=== PATIENT | female | born 1950 | race Caucasian/White ===

== ENCOUNTER 2019-09-01 08:15 | Outpatient (CLI) | payer MEDICARE, SELFPAY ==
[2019-09-01 08:58] LABS: Add Urine Microscopic? NO; Appearance Urine Clear (Clear); Bilirubin Urine Negative (Negative); Blood Urine Negative (Negative); Color Urine Yellow (Yellow); Glucose Urine UA Negative (Negative); Ketones Urine Negative (Negative); Leukocyte Esterase Ur Negative LEU/UL (Negative); Nitrate Urine Negative (Negative); Protein Urine Negative (Negative); Specific Grav Ur 1.015 (1.010-1.020); Urobilinogen Urine 0.2 mg/dL (0.2-1.0)
[2019-09-01 09:20] LABS: Basophils Absolute Auto 0.07 K/mm3 (0.00-0.10); Basophils Percent Auto 0.8 % (0.0-1.0); Eosinophils Absolute Auto 0.15 K/mm3 (0.02-0.50); Eosinophils Percent Auto 1.6 % (1.0-6.0); Hematocrit 40.4 % (35.0-42.0); Hemoglobin 13.2 g/dL (11.7-13.8); Immature Granulocyte Absolute 0.02 K/mm3 (0.00-0.00); Immature Granulocyte Percent A 0.2 % (0.0-0.0); Lymphocytes Absolute Auto 2.92 K/mm3 (1.10-4.50); Lymphocytes Percent Auto 31.3 % (18.0-42.0); Mean Corpuscular HGB Conc 32.7 g/dL (32.0-36.0); Mean Corpuscular Volume 91.8 fL (78.0-102.0); Mean Platelet Volume 12.3 fl (9.2-11.8); Monocytes Absolute Auto 0.73 K/mm3 (0.10-0.90); Monocytes Percent Auto 7.8 % (2.0-11.0); Neutrophils Absolute Auto 5.4 K/mm3 (1.7-7.2); Neutrophils Percent Auto 58.3 % (50.0-70.0); Platelet Count Result 244 K/mm3 (150-420); Red Cell Distribution Width 14.2 % (11.6-14.4); White Blood Count 9.3 K/mm3 (4.8-10.8)
[2019-09-01 09:47] LABS: Alanine Aminotransferase 31 U/L (14-59); Albumin Level 3.6 g/dL (3.4-5.0); Alkaline Phosphatase 71 U/L (46-116); Anion Gap 14.1 mmol/L (7-16); Aspartate Amino Transferase 22 U/L (15-37); Bilirubin,Total 0.4 mg/dL (0.00-1.00); Blood Urea Nitrogen 18 mg/dL (7-18); Calcium 10.1 mg/dL (8.5-10.1); Carbon Dioxide 26 mmol/L (21-32); Chloride 101 mmol/L (98-108); Cholesterol 218 mg/dL (0-200); Estimated Glomerular Filt Rate 38; Glucose 103 mg/dL (70-99); HDL Direct 55 mg/dL (40-60); LDL Cholesterol Calculated 138 mg/dL (<130); Osmolality Calculated 285 mOsm/kg (285-295); Potassium 4.1 mmol/L (3.5-5.1); Sodium 137 mmol/L (136-145); Thyroid Stimulating Hormone 4.77 uIU/mL (0.36-3.74); Total Protein 7.7 g/dL (6.4-8.2); Triglycerides 125 mg/dL (0-150)
== END 2019-09-01 08:16 | disposition home or self-care (01) ==
PROVIDERS: PCP Internal Medicine; Visit Provider Internal Medicine
DX: E06.3 Autoimmune thyroiditis (principal); I10 Essential (primary) hypertension; E78.2 Mixed hyperlipidemia
CPT/HCPCS: 36415; 80053; 80061; 81003; 84443; 85025

== ENCOUNTER 2019-09-03 23:14 | Emergency (ER) | payer MEDICARE, SELFPAY ==
[2019-09-03 23:20] VITALS: BP 168/94; PULSE 92; RESP 20; TEMP 36.8; O2SAT 97
--- NOTE | 2019-09-03 23:25 | ECG_ITS ---
Measurements Intervals [place] Rate: 92 P: 35 ID: 220 QRS: -34 QRSD: 95 T: 51 QT: 367 QTc: 454 Interpretive Statements SINUS RHYTHM WITH FIRST DEGREE AV BLOCK LEFT AXIS DEVIATION VOLTAGE CRITERIA FOR LVH POOR R WAVE PROGRESSION, ANTERIOR LEADS NONSPECIFIC ST & T-WAVE ABNORMALITY- HIGH LATERAL LEADS ABNORMAL ECG Electronically Signed On 09-05-2019 7:17:14 CDT by Radu Melgar D.O.
[2019-09-03 23:41] VITALS: O2SAT 97
--- NOTE | 2019-09-03 23:42 | ED.CHESTPAIN ---
HPI - Chest Pain General Chief Complaint: Chest Pain Stated Complaint: Hypertension Source: patient Mode of arrival: ambulatory Limitations: no limitations History of Present Illness HPI narrative: this is a 69-year-old female that presents to the emergency department with some elevated blood pressure the patient appears slightly anxious has been told by her primary care physician to monitor her blood pressure and she has been doing so, and was concerned because her blood pressure was 168/94. Initially she complained of chest pressure but during my examination the patient denied any chest pain or chest pressure or chest tightness with no shortness of breath no nausea vomiting no abdominal pain no fever or chills. complaint: other ( Currently no chest pain) Prior episodes: No Relieving factors: nothing Exacerbating factors: nothing Related Data Home Medications Medication Instructions Recorded Confirmed aspirin [Aspirin Low Dose] 81 mg PO DAILY 09/03/19 09/03/19 famotidine 20 mg PO DAILY 09/03/19 09/03/19 levothyroxine 75 mcg PO DAILY 09/03/19 09/03/19 lisinopril 5 mg PO DAILY 09/03/19 09/03/19 montelukast 10 mg PO DAILY 09/03/19 09/03/19 pravastatin 20 mg PO DAILY 09/03/19 09/03/19 verapamil 240 mg PO DAILY 09/03/19 09/03/19 Allergies Allergy/AdvReac Type Severity Reaction Status Date / Time No Known Allergies Allergy Unverified 02/27/15 10:22 Review of Systems Review of Systems: All systems reviewed & are unremarkable except as noted in HPI and below PMFSH Past Medical History Medical History HLD (hyperlipidemia) HTN (hypertension) Hypothyroidism (acquired) Family History Family History Father Hypertension Family history of heart disease in male family member before age 55 Sibling Family history of Parkinson's disease Mother Family history of diabetes mellitus in first degree relative Social History Social History Smoking status: Never smoker Alcohol intake: never Exam Const: General: no acute distress and alert Orientation/consciousness: patient oriented x3 HENMT: Head: normal to inspection Eyes: Conjunctivae: conjunctivae normal Pupils: Equal, round and reactive pupils present EOM: EOMs intact bilaterally Neck: Neck: normal visual inspection, no lymphadenopathy and no meningeal signs Chest: Chest palpation & inspection: normal inspection of the chest Resp: Effort & Inspection: normal respiratory effort Auscultation: clear to auscultation bilaterally Cardio: Rate: regular rate Rhythm: regular rhythm GI: Auscultation: normal bowel sounds : General: Yes no CVA tenderness Neuro: General: patient oriented x3, moves all extremities and no meningeal signs Extrem: General: normal to inspection and no pedal edema Psych: Mental Status: mental status grossly normal Thought content: Yes Normal thought content present Course Course Emergency Course: during reassessment the patient's blood pressure was 150/85 assured her that that blood pressure was mildly elevated and was going to give her a 10 mg dose of lisinopril while here in the emergency department, also noticed that her primary care physician had performed a blood test on September 01, 2019 which showed that her TSH levels were mildly elevated to 4.77 and recommended that she bring this to her primary care at [facility]. Also advised the patient to take 2 of her 5 mg tablets of lisinopril to make a total of 10 mg daily over the weekend until she follows up with her primary care physician for further evaluation. Vital Signs Vital signs: Vital Signs Temperature 36.8 C 09/03/19 23:20 Pulse Rate 92 09/03/19 23:20 Respiratory Rate 20 09/03/19 23:20 Blood Pressure 168/94 H 09/03/19 23:20 Pulse Oximetry 97 09/03/19 23:20 Temperature 3
[2019-09-03] MEDS: lisinopriL 5 MG TABLET PO (23:46)
[2019-09-03 23:49] VITALS: BP 150/82; PULSE 90; RESP 18; TEMP 36.4; O2SAT 97
== END 2019-09-03 23:52 | disposition home or self-care (01) ==
PROVIDERS: Emergency Provider Emergency Medicine; PCP Internal Medicine
DX: E03.9 Hypothyroidism, unspecified (principal); I10 Essential (primary) hypertension
CPT/HCPCS: 93005; 99283; A9270

== ENCOUNTER 2019-09-06 05:58 | Emergency (ER) | payer MEDICARE, SELFPAY ==
--- NOTE | ~2019-09-06 | CT_ITS ---
EXAMINATION: CT brain wo con DATE: 09/06/2019 07:05 INDICATION: Headache TECHNIQUE: Computed tomography (CT) of the head was performed without intravenous contrast. Sagittal and coronal reconstructions were performed. The mA was adjusted according to patient size. Iterative reconstruction technique was employed. The dose-length product was 681.00 mGy-cm. COMPARISON: head CT dated 01/07/2012 FINDINGS: No acute intracranial hemorrhage, acute infarction or abnormal extra axial fluid collection. Ventricl es are normal and symmetric. No mass/mass effect. The orbits, paranasal sinuses and mastoid air cells are normal. IMPRESSION: 1. Normal head CT. Reviewed, dictated and finalized at location A. IMPRESSION: 1. Normal head CT.
[2019-09-06 05:58] VITALS: BP 151/96; PULSE 72; RESP 20; TEMP 36.6; O2SAT 99
--- NOTE | 2019-09-06 06:41 | ED.GENADULT ---
HPI - General Adult General Chief complaint: Medical Clearance Stated complaint: Hypertension Time Seen by Provider: 09/06/19 06:15 Source: patient and RN notes reviewed Mode of arrival: ambulatory Limitations: no limitations History of Present Illness HPI narrative: Patient has vague symptoms. She states that something is just not right . She states I just have this feeling. She is concerned about having a stroke. She also states that she feels something weird in her heart but can't explain it. She mentions atrial fibrillations. I assured her that there is no evidence of atrial fibrillation on the monitor. She has appointment with her primary care physician tomorrow she just had labs done 4 days ago that were all normal. Onset (ago): day(s) (2) Location: head Radiation: non-radiation Severity: mild Quality: dull Pain Consistency: intermittent Relieving factors: none Exacerbating factors: none Associated symptoms: denies other symptoms Treatments prior to arrival: none Related Data Home Medications Medication Instructions Recorded Confirmed aspirin [Aspirin Low Dose] 81 mg PO DAILY 09/03/19 09/06/19 famotidine 40 mg PO DAILY 09/03/19 09/06/19 levothyroxine 75 mcg PO DAILY 09/03/19 09/06/19 lisinopril 10 mg PO DAILY 09/03/19 09/06/19 montelukast 10 mg PO DAILY 09/03/19 09/06/19 pravastatin 20 mg PO DAILY 09/03/19 09/06/19 verapamil 240 mg PO DAILY 09/03/19 09/06/19 Allergies Allergy/AdvReac Type Severity Reaction Status Date / Time No Known Allergies Allergy Unverified 02/27/15 10:22 Review of Systems Review of Systems: All systems reviewed & are unremarkable except as noted in HPI and below Constitutional: Constitutional: Denies chills, Denies fever(s) and Denies weakness Eyes: Eyes: Reports no additional eye complaints and Denies change in vision ENT: Reports system reviewed and no additional complaints, except as documented Cardiovascular: Cardiovascular: Reports no additional cardiovascular complaints Respiratory: Respiratory: Reports no additional respiratory complaints Gastrointestinal: Gastrointestinal: Reports no additional gastrointestinal complaints Musculoskeletal: Musculoskeletal: Reports no additional musculoskeletal complaints Neurologic: Reports Normal hearing present, Denies Abnormal speech present, Denies abnormal gait, Denies frequent falls, Denies lack of coordination, Denies focal weakness, Denies memory loss, Denies Other visual disturbances, Denies Sensory deficit (Neuro), Denies paresthesias and Denies weakness Psychiatric: Psychiatric: Reports no additional psychiatric complaints Endocrine: Endocrine: Reports no additional endocrine complaints Allergic/Immunologic: Allergic/Immunologic: Reports no additional allergic/immunologic complaints PMFSH Past Medical History Medical History HLD (hyperlipidemia) HTN (hypertension) Hypothyroidism (acquired) Family History Family History Father Hypertension Family history of heart disease in male family member before age 55 Sibling Family history of Parkinson's disease Mother Family history of diabetes mellitus in first degree relative Social History Social History Smoking status: Never smoker Alcohol intake: never Exam Const: General: healthy appearing, no acute distress and alert Nutritional Appearance: well nourished and obese centrally obese Orientation/consciousness: patient oriented x3 HENMT: Head: normal to inspection Face and sinus: normal facial exam Eyes: Conjunctivae: conjunctivae normal Pupils: Equal, round and reactive pupils present Neck: Neck: normal visual inspection Resp: Effort & Inspection: normal respiratory effort Auscultation: clear to auscultation bilaterally Cardio: Rate: regular rate Rhythm: regular rhythm and regular rhyth
--- NOTE | 2019-09-06 06:53 | PC.NURSE ---
pt to xray for ct scan per wheelchair.
[2019-09-06 07:30] VITALS: BP 146/94; PULSE 78; RESP 20; O2SAT 98
[2019-09-06] MEDS: ACETAMINOPHEN 500 MG TABLET 1000 MG PO (07:30)
== END 2019-09-06 07:36 | disposition home or self-care (01) ==
PROVIDERS: Emergency Provider Emergency Medicine; PCP Internal Medicine
DX: G44.209 Tension-type headache, unspecified, not intractable (principal); F41.1 Generalized anxiety disorder
CPT/HCPCS: 70450; 99282; 99284

== ENCOUNTER 2019-12-06 15:46 | Outpatient (CLI) | payer MEDICARE, SELFPAY ==
[2019-12-06 16:47] LABS: Alanine Aminotransferase 27 U/L (14-59); Albumin Level 1.9 g/dL (3.4-5.0); Alkaline Phosphatase 69 U/L (46-116); Anion Gap 9 mmol/L (8-16); Aspartate Amino Transferase 16 U/L (15-37); Bilirubin,Total 0.4 mg/dL (0.00-1.00); Blood Urea Nitrogen 23 mg/dL (7-18); Calcium 9.8 mg/dL (8.5-10.1); Carbon Dioxide 25 mmol/L (21-32); Chloride 105 mmol/L (98-108); Cholesterol 182 mg/dL (0-200); Estimated Glomerular Filt Rate 34; Glucose 98 mg/dL (70-99); HDL Direct 53 mg/dL (40-60); LDL Cholesterol Calculated 106 mg/dL (<130); Osmolality Calculated 291 mOsm/kg (285-295); Potassium 4.2 mmol/L (3.5-5.1); Sodium 139 mmol/L (136-145); Total Protein 7.7 g/dL (6.4-8.2); Triglycerides 116 mg/dL (0-150)
== END 2019-12-06 15:47 | disposition home or self-care (01) ==
LOC: CHSLAB 15:48
PROVIDERS: PCP Internal Medicine; Visit Provider Internal Medicine
DX: E78.5 Hyperlipidemia, unspecified (principal); I12.9 Hypertensive chronic kidney disease with stage 1 through stage 4 chronic kidney disease, or unspecified chronic kidney disease; N18.2 Chronic kidney disease, stage 2 (mild)
CPT/HCPCS: 36415; 80053; 80061

== ENCOUNTER 2020-06-08 13:40 | Outpatient (CLI) | payer MEDICARE, SELFPAY ==
[2020-06-08 13:57] LABS: Basophils Absolute Auto 0.06 K/mm3 (0.00-0.10); Basophils Percent Auto 0.7 % (0.0-1.0); Eosinophils Absolute Auto 0.19 K/mm3 (0.02-0.50); Eosinophils Percent Auto 2.2 % (1.0-6.0); Hematocrit 38.6 % (35.0-42.0); Hemoglobin 12.7 g/dL (11.7-13.8); Immature Granulocyte Absolute 0.02 K/mm3 (0.00-0.00); Immature Granulocyte Percent A 0.2 % (0.0-0.0); Lymphocytes Absolute Auto 2.88 K/mm3 (1.10-4.50); Lymphocytes Percent Auto 33.3 % (18.0-42.0); Mean Corpuscular HGB Conc 32.9 g/dL (32.0-36.0); Mean Corpuscular Hemoglobin 30.4 pg (27.0-31.0); Mean Corpuscular Volume 92.3 fL (78.0-102.0); Mean Platelet Volume 11.3 fl (9.2-11.8); Monocytes Absolute Auto 0.62 K/mm3 (0.10-0.90); Monocytes Percent Auto 7.2 % (2.0-11.0); Neutrophils Absolute Auto 4.9 K/mm3 (1.7-7.2); Neutrophils Percent Auto 56.4 % (50.0-70.0); Platelet Count Result 218 K/mm3 (150-420); Red Blood Count 4.18 M/mm3 (4.20-5.40); Red Cell Distribution Width 13.8 % (11.6-14.4); White Blood Count 8.7 K/mm3 (4.8-10.8)
[2020-06-08 14:19] LABS: Add Urine Microscopic? NO; Appearance Urine Clear (Clear); Bilirubin Urine Negative (Negative); Blood Urine Negative (Negative); Color Urine Yellow (Yellow); Glucose Urine UA Negative (Negative); Ketones Urine Negative (Negative); Leukocyte Esterase Ur Negative LEU/UL (Negative); Nitrate Urine Negative (Negative); Protein Urine Negative (Negative); Urobilinogen Urine 0.2 mg/dL (0.2-1.0); pH Urine 6.5 (5.0-8.0)
[2020-06-08 14:37] LABS: Alanine Aminotransferase 34 U/L (14-59); Albumin Level 3.8 g/dL (3.4-5.0); Alkaline Phosphatase 85 U/L (46-116); Anion Gap 8 mmol/L (8-16); Aspartate Amino Transferase 21 U/L (15-37); Bilirubin,Total 0.6 mg/dL (0.00-1.00); Blood Urea Nitrogen 21 mg/dL (7-18); Calcium 9.8 mg/dL (8.5-10.1); Carbon Dioxide 28 mmol/L (21-32); Chloride 101 mmol/L (98-108); Cholesterol 180 mg/dL (0-200); Estimated Glomerular Filt Rate 39; Glucose 96 mg/dL (70-99); HDL Direct 56 mg/dL (40-60); LDL Cholesterol Calculated 103 mg/dL (<130); Osmolality Calculated 287 mOsm/kg (285-295); Potassium 4.2 mmol/L (3.5-5.1); Sodium 137 mmol/L (136-145); Thyroid Stimulating Hormone 4.59 uIU/mL (0.36-3.74); Total Protein 7.6 g/dL (6.4-8.2); Triglycerides 107 mg/dL (0-150)
== END 2020-06-08 13:41 | disposition home or self-care (01) ==
LOC: CHSLAB 13:43
PROVIDERS: PCP Internal Medicine; Visit Provider Internal Medicine
DX: E06.3 Autoimmune thyroiditis (principal); I10 Essential (primary) hypertension; E78.5 Hyperlipidemia, unspecified
CPT/HCPCS: 36415; 80053; 80061; 81003; 84443; 85025

== ENCOUNTER 2021-02-14 15:21 | Outpatient (CLI) | payer MEDICARE, SELFPAY ==
[2021-02-14 15:35] LABS: Basophils Absolute Auto 0.07 K/mm3 (0.00-0.10); Basophils Percent Auto 0.9 % (0.0-1.0); Eosinophils Percent Auto 5.2 % (1.0-6.0); Hematocrit 42.2 % (35.0-42.0); Hemoglobin 13.5 g/dL (11.7-13.8); Immature Granulocyte Absolute 0.02 K/mm3 (0.00-0.00); Immature Granulocyte Percent A 0.3 % (0.0-0.0); Lymphocytes Absolute Auto 2.32 K/mm3 (1.10-4.50); Lymphocytes Percent Auto 30.3 % (18.0-42.0); Mean Corpuscular Hemoglobin 30.5 pg (27.0-31.0); Mean Corpuscular Volume 95.3 fL (78.0-102.0); Mean Platelet Volume 11.4 fl (9.2-11.8); Monocytes Absolute Auto 0.66 K/mm3 (0.10-0.90); Monocytes Percent Auto 8.6 % (2.0-11.0); Neutrophils Absolute Auto 4.2 K/mm3 (1.7-7.2); Neutrophils Percent Auto 54.7 % (50.0-70.0); Platelet Count Result 228 K/mm3 (150-420); Red Blood Count 4.43 M/mm3 (4.20-5.40); Red Cell Distribution Width 13.9 % (11.6-14.4); White Blood Count 7.7 K/mm3 (4.8-10.8)
[2021-02-14 15:48] LABS: Add Urine Microscopic? YES; Appearance Urine Clear (Clear); Bilirubin Urine Negative (Negative); Blood Urine Negative (Negative); Color Urine Yellow (Yellow); Glucose Urine UA Negative (Negative); Ketones Urine Negative (Negative); Leukocyte Esterase Ur Trace (Negative); Nitrate Urine Negative (Negative); Protein Urine Negative (Negative); Urobilinogen Urine 0.2 mg/dL (0.2-1.0)
[2021-02-14 15:56] LABS: Bacteria Urine 1+ /hpf; RBC Urine 0-2 /hpf (0-2); Squamous Epithelial Cell Urine Few /hpf (Few)
[2021-02-14 16:20] LABS: Alanine Aminotransferase 35 U/L (14-59); Albumin Level 4.1 g/dL (3.4-5.0); Alkaline Phosphatase 81 U/L (46-116); Anion Gap 13 mmol/L (8-16); Aspartate Amino Transferase 23 U/L (15-37); Bilirubin,Total 0.5 mg/dL (0.00-1.00); Blood Urea Nitrogen 21 mg/dL (7-18); Calcium 9.7 mg/dL (8.5-10.1); Carbon Dioxide 28 mmol/L (21-32); Chloride 108 mmol/L (98-108); Cholesterol 191 mg/dL (0-200); Estimated Glomerular Filt Rate 37; Glucose 104 mg/dL (70-99); HDL Direct 50 mg/dL (40-60); LDL Cholesterol Calculated 108 mg/dL (<130); Osmolality Calculated 311 mOsm/kg (285-295); Potassium 3.9 mmol/L (3.5-5.1); Sodium 149 mmol/L (136-145); Thyroid Stimulating Hormone 0.13 uIU/mL (0.36-3.74); Total Protein 7.9 g/dL (6.4-8.2); Triglycerides 163 mg/dL (0-150)
== END 2021-02-14 15:22 | disposition home or self-care (01) ==
LOC: CHSLAB 15:23
PROVIDERS: PCP Internal Medicine; Visit Provider Internal Medicine
DX: E78.5 Hyperlipidemia, unspecified (principal); I10 Essential (primary) hypertension; E06.3 Autoimmune thyroiditis
CPT/HCPCS: 36415; 80053; 80061; 81001; 84443; 85025

== ENCOUNTER 2021-02-25 14:41 | Outpatient (CLI) | payer MEDICARE, SELFPAY ==
--- NOTE | ~2021-02-25 | XR_ITS ---
EXAMINATION: XR chest 2V EXAM DATE: 02/25/2021 15:05 INDICATION: New onset atrial fibrillation. Generalized chest pain. TECHNIQUE: Frontal and lateral projections of the chest obtained and reviewed. Comparison is made to prior examination from 2008. FINDINGS: The lungs are clear. There are no pleural effusions. The cardiomediastinal silhouette is within normal limits. There is no pneumothorax suspected. The bones and soft tissues are unremarkab le. There are cholecystectomy clips. IMPRESSION: No acute cardiopulmonary findings. Reviewed, dictated and finalized at location A. TY EDITOR IN CHIEF
[2021-02-25 15:23] LABS: Alanine Aminotransferase 35 U/L (14-59); Albumin Level 3.7 g/dL (3.4-5.0); Alkaline Phosphatase 74 U/L (46-116); Anion Gap 11 mmol/L (8-16); Aspartate Amino Transferase 21 U/L (15-37); Bilirubin,Total 0.4 mg/dL (0.00-1.00); Blood Urea Nitrogen 20 mg/dL (7-18); Calcium 9.3 mg/dL (8.5-10.1); Carbon Dioxide 25 mmol/L (21-32); Chloride 104 mmol/L (98-108); Estimated Glomerular Filt Rate 40; Free T3 2.08 pg/mL (2.18-3.98); Free T4 Free Thyroxine 1.08 ng/dL (0.76-1.46); Glucose 102 mg/dL (70-99); NT Pro B Type Natriuretic Pept 255 pg/mL (0-125); Osmolality Calculated 292 mOsm/kg (285-295); Potassium 4.3 mmol/L (3.5-5.1); Sodium 140 mmol/L (136-145); Thyroid Stimulating Hormone 0.49 uIU/mL (0.36-3.74); Total Protein 7.7 g/dL (6.4-8.2)
== END 2021-02-25 14:42 | disposition home or self-care (01) ==
LOC: CHSLAB 14:44
PROVIDERS: PCP Internal Medicine; Visit Provider Internal Medicine
DX: I48.91 Unspecified atrial fibrillation (principal); N18.30 Chronic kidney disease, stage 3 unspecified; R06.00 Dyspnea, unspecified
CPT/HCPCS: 36415; 71046; 80053; 83880; 84439; 84443; 84481

== ENCOUNTER 2021-03-04 12:21 | Outpatient (CLI) | payer MEDICARE, SELFPAY ==
--- NOTE | 2021-03-04 12:32 | ECHO_ITS ---
Patient Info Name: Irene Vasquez Age: 70 years : 1950 Gender: Female Ht: 65 in Wt: 230 lbs BSA: 2.24 m2 HR: 84 bpm BP: 150 / 72 mmHg Exam Date: 03/04/2021 1:20 PM Exam Location: [facility] Patient Status: Outpatient Admit Date: 03/04/2021 Staff Ordering Physician: Bright Manzo MD Demand Inspector: Anna Marie Adhikari Attending Provider: Bright Manzo MD Exam Type: CA echo doppler color flow Study Info Indications I48.1 - Persistent atrial fibrillation Complete two-dimensional, color flow and Doppler transthoracic echocardiogram is performed. Strain analysis performed. Summary 1. Complete two-dimensional, color flow and Doppler transthoracic echocardiogram is performed. 2. Left ventricular chamber dimension is normal. 3. Left ventricular systolic function is normal, estimated at 55-60%. 4. The left ventricular diastolic function is grade III diastolic dysfunction. 5. E/e' 13 is mildly elevated. 6. There is moderate aortic valve sclerosis. 7. There is trace aortic valve regurgitation. 8. The mitral valve has mildly calcified annulus. 9. There is trace mitral valve regurgitation. 10. There is trace tricuspid valve regurgitation. 11. No pulmonary hypertension, estimated pulmonary arterial systolic pressure is 30 mmHg. Left Ventricle E/e' 13 is mildly elevated. Left ventricular chamber dimension is normal. Left ventricular systolic function is normal, estimated at 55-60%. The left ventricular diastolic function is grade III diastolic dysfunction. Right Ventricle Right ventricular systolic function is normal and with normal TAPSE 2.1 cm. Right ventricular chamber dimension is normal. Left Atria Left atrial chamber dimension is normal. Right Atria Right atrial chamber dimension is normal. Aortic Valve The aortic valve is trileaflet. There is moderate aortic valve sclerosis. There is no aortic valve stenosis. There is trace aortic valve regurgitation. Pulmonic Valve There is no pulmonic regurgitation. Mitral Valve The mitral valve has mildly calcified annulus. There is no mitral valve stenosis. There is trace mitral valve regurgitation. Tricuspid Valve There is trace tricuspid valve regurgitation. No pulmonary hypertension, estimated pulmonary arterial systolic pressure is 30 mmHg. Pericardium/Pleural There is no pericardial effusion. Inferior Vena Cava Normal inferior vena cava with >50% collapse upon inspiration consistent with normal right atrial pressure, 5 mmHg. Aorta The aortic root size at the sinus of Valsalva is normal. Left Ventricular Outflow Tract Name Value Normal LVOT 2D LVOT Diameter 1.9 cm LVOT Doppler LVOT Peak Velocity 102 cm/s LVOT Peak Gradient 4 mmHg LVOT Mean Gradient 2 mmHg LVOT VTI 22 cm LVOT VTI/AV VTI Ratio 0.7 LVOT Stroke Volume 58 ml Mitral Valve Name Value
--- NOTE | 2021-03-04 13:17 | ECG_ITS ---
Measurements Intervals [place] Rate: 71 P: [place]: 0 QRS: 20 QRSD: 105 T: -30 QT: 446 QTc: 488 Interpretive Statements ATRIAL FIBRILLATION NONSPECIFIC ST & T-WAVE ABNORMALITY- INF/LAT LEADS BASELINE ARTIFACT- I, II, III, AVF ABNORMAL ECG Electronically Signed On 03-04-2021 15:07:20 TUBE CARRIER by Radu Melgar D.O.
== END 2021-03-04 12:22 | disposition home or self-care (01) ==
LOC: CHSIMG 12:22
PROVIDERS: PCP Internal Medicine; Visit Provider Internal Medicine
DX: I48.91 Unspecified atrial fibrillation (principal)
CPT/HCPCS: 93005; 93306

== ENCOUNTER 2021-06-18 17:04 | Outpatient (CLI) | payer MEDICARE, SELFPAY ==
[2021-06-18 17:31] LABS: Basophils Absolute Auto 0.05 K/mm3 (0.00-0.10); Basophils Percent Auto 0.6 % (0.0-1.0); Eosinophils Absolute Auto 0.19 K/mm3 (0.02-0.50); Eosinophils Percent Auto 2.1 % (1.0-6.0); Hematocrit 40.2 % (35.0-42.0); Hemoglobin 13.2 g/dL (11.7-13.8); Immature Granulocyte Absolute 0.03 K/mm3 (0.00-0.00); Immature Granulocyte Percent A 0.3 % (0.0-0.0); Lymphocytes Absolute Auto 2.91 K/mm3 (1.10-4.50); Lymphocytes Percent Auto 32.7 % (18.0-42.0); Mean Corpuscular HGB Conc 32.8 g/dL (32.0-36.0); Mean Corpuscular Hemoglobin 31.1 pg (27.0-31.0); Mean Corpuscular Volume 94.6 fL (78.0-102.0); Mean Platelet Volume 11.8 fl (9.2-11.8); Monocytes Absolute Auto 0.77 K/mm3 (0.10-0.90); Monocytes Percent Auto 8.7 % (2.0-11.0); Neutrophils Percent Auto 55.6 % (50.0-70.0); Platelet Count Result 215 K/mm3 (150-420); Red Blood Count 4.25 M/mm3 (4.20-5.40); White Blood Count 8.9 K/mm3 (4.8-10.8)
[2021-06-18 17:53] LABS: Alanine Aminotransferase 31 U/L (14-59); Albumin Level 3.7 g/dL (3.4-5.0); Alkaline Phosphatase 73 U/L (46-116); Anion Gap 8 mmol/L (8-16); Aspartate Amino Transferase 25 U/L (15-37); Bilirubin,Total 0.6 mg/dL (0.00-1.00); Blood Urea Nitrogen 19 mg/dL (7-18); Calcium 9.4 mg/dL (8.5-10.1); Carbon Dioxide 27 mmol/L (21-32); Chloride 100 mmol/L (98-108); Estimated Glomerular Filt Rate 42; Glucose 96 mg/dL (70-99); NT Pro B Type Natriuretic Pept 279 pg/mL (0-125); Osmolality Calculated 282 mOsm/kg (285-295); Potassium 4.2 mmol/L (3.5-5.1); Sodium 135 mmol/L (136-145); Total Protein 7.4 g/dL (6.4-8.2)
== END 2021-06-18 17:05 | disposition home or self-care (01) ==
LOC: CHSLAB 17:07
PROVIDERS: PCP Internal Medicine; Visit Provider Internal Medicine
DX: I48.91 Unspecified atrial fibrillation (principal); R06.00 Dyspnea, unspecified
CPT/HCPCS: 36415; 80053; 83880; 85025

== ENCOUNTER 2022-02-04 15:35 | Outpatient (CLI) | payer MEDICARE, SELFPAY ==
[2022-02-04 15:57] LABS: Basophils Absolute Auto 0.07 K/mm3 (0.00-0.10); Basophils Percent Auto 0.8 % (0.0-1.0); Eosinophils Absolute Auto 0.15 K/mm3 (0.02-0.50); Eosinophils Percent Auto 1.8 % (1.0-6.0); Hematocrit 41.9 % (35.0-42.0); Hemoglobin 13.7 g/dL (11.7-13.8); Immature Granulocyte Absolute 0.02 K/mm3 (0.00-0.00); Immature Granulocyte Percent A 0.2 % (0.0-0.0); Lymphocytes Absolute Auto 2.75 K/mm3 (1.10-4.50); Mean Corpuscular HGB Conc 32.7 g/dL (32.0-36.0); Mean Corpuscular Hemoglobin 30.5 pg (27.0-31.0); Mean Corpuscular Volume 93.3 fL (78.0-102.0); Mean Platelet Volume 11.6 fl (9.2-11.8); Monocytes Absolute Auto 0.69 K/mm3 (0.10-0.90); Monocytes Percent Auto 8.3 % (2.0-11.0); Neutrophils Absolute Auto 4.7 K/mm3 (1.7-7.2); Neutrophils Percent Auto 55.9 % (50.0-70.0); Platelet Count Result 241 K/mm3 (150-420); Red Blood Count 4.49 M/mm3 (4.20-5.40); Red Cell Distribution Width 13.8 % (11.6-14.4); White Blood Count 8.3 K/mm3 (4.8-10.8)
[2022-02-04 16:21] LABS: Appearance Urine Clear (Clear); Bilirubin Urine Negative (Negative); Blood Urine Negative (Negative); Glucose Urine UA Negative (Negative); Ketones Urine Negative (Negative); Leukocyte Esterase Ur Negative (Negative); Nitrate Urine Negative (Negative); Protein Urine Negative (Negative); Specific Grav Ur <= 1.005 (1.010-1.020); Urobilinogen Urine 0.2 mg/dL (0.2-1.0)
[2022-02-04 16:25] LABS: Add Urine Microscopic? NO; Color Urine Light Yellow (Yellow)
[2022-02-04 17:06] LABS: Alanine Aminotransferase 40 U/L (14-59); Albumin Level 3.9 g/dL (3.4-5.0); Alkaline Phosphatase 80 U/L (46-116); Anion Gap 9 mmol/L (8-16); Aspartate Amino Transferase 28 U/L (15-37); Bilirubin,Total 0.5 mg/dL (0.00-1.00); Blood Urea Nitrogen 15 mg/dL (7-18); Calcium 9.8 mg/dL (8.5-10.1); Carbon Dioxide 27 mmol/L (21-32); Chloride 102 mmol/L (98-108); Cholesterol 222 mg/dL (0-200); Estimated Glomerular Filt Rate 36; Glucose 102 mg/dL (70-99); HDL Direct 51 mg/dL (40-60); LDL Cholesterol Calculated 143 mg/dL (<130); Osmolality Calculated 286 mOsm/kg (285-295); Potassium 3.6 mmol/L (3.5-5.1); Sodium 138 mmol/L (136-145); Thyroid Stimulating Hormone 0.91 uIU/mL (0.36-3.74); Total Protein 8.4 g/dL (6.4-8.2); Triglycerides 141 mg/dL (0-150)
== END 2022-02-04 15:36 | disposition home or self-care (01) ==
LOC: CHSLAB 15:37
PROVIDERS: PCP Internal Medicine; Visit Provider Internal Medicine
DX: E78.5 Hyperlipidemia, unspecified (principal); I10 Essential (primary) hypertension; E03.9 Hypothyroidism, unspecified
CPT/HCPCS: 36415; 80053; 80061; 81003; 84443; 85025

== ENCOUNTER 2022-02-07 13:54 | Outpatient (CLI) | payer MEDICARE, SELFPAY ==
--- NOTE | ~2022-02-07 | DEXA_ITS ---
Bone Density Report Name: ALISON KIMBROUGH Age: 71 Sex: Female Ethnicity: White Date of : 1950 Indication: hyperparathyroidism; height loss; prior fracture; asthma or emphysema; Referring Provider: Bright Manzo Study: Bone densitometry was performed. Exam Date: February 07, 2022 Accession number: [id number] Bone Density: Region BMD T-score Z-score Classification AP Spine(L1, L2, L3) 1.237 2.0 4.0 Normal Femoral Neck (Left) 0.707 -1.3 0.5 Osteopenia Total Hip (Left) 0.893 -0.4 1.1 Normal Femoral Neck (Right) 0.804 -0.4 1.4 Normal Total Hip (Right) 0.924 -0.1 1.3 Normal Femoral Neck Mean 0.756 -0.8 0.9 Normal Total Hip Mean 0.909 -0.3 1.2 Normal World Health Organization criteria for BMD impression classify patients as: Normal (T-score at or above -1.0), Osteopenia (T-score between -1.0 and -2.5), or Osteoporosis (T-score at or below -2.5). 10-year Fracture Risk(1): Major Osteoporotic Fracture 13% Hip Fracture 1.4% Reported Risk Factors: [place] (), Neck BMD=0.707, BMI=42.7, previous fracture (1) FRAX(R) Version 3.08. Fracture probability calculated for an untreated patient. Fracture probability may be lower if the patient has received treatment. Clinical Information Provided by Patient: Has had a low trauma fracture Has used the following medications: Vitamin D, Calcium, multi vit Has the following medical conditions: Asthma or Emphysema, Hyperparathyroidism Patient maximum height was 65 Menopause Age: 57 No regular weight bearing exercise Does not regularly consume dairy products Onset of menses at age 12 Number of children 5 Impression: The patient has low bone mass, based on the Left Femoral Neck T-score. The patient has risk factors, including: previous fracture. Discussion: BONE DENSITY IS LOW AT ONE OR MORE SKELETAL SITES. This patient's lowest T-score is low at one or more skeletal sites. It meets the World Health Organization's (WHO) criteria for ?low bone mass? (T-score between -1.0 and -2.5). The patient's 10-year risk of fracture as calculated by FRAX is less than the threshold where pharmacological therapy is recommended by the National Osteoporosis Foundation (NOF). However, all treatment decisions require clinical judgment and consideration of individual patient factors, including patient preferences, comorbidities, previous drug use, risk factors not captured in the FRAX model (e.g., frailty, falls, vitamin D deficiency, increased bone turnover, interval significant decline in bone density) and possible under or overestimation of fracture risk by FRAX. The patient should follow a healthful lifestyle (good nutrition with adequate calcium and vitamin D, and appropriate weight-bearing exercise). Follow-Up: Consider repeating th
--- NOTE | ~2022-02-07 | MM_ITS ---
EXAMINATION: MM screening dawson BI w elana HISTORY: Screening mammogram TECHNIQUE: Craniocaudal and mediolateral oblique 3-D tomosynthesis images were obtained and synthetic 2-D images were generated. CAD analysis was submitted and interpreted. COMPARISON: No prior mammogram is available for comparison at this institution. BREAST PARENCHYMAL COMPOSITION: There are scattered areas of fibroglandular density. FINDINGS: There are scattered benign microcalcifications. There is no evidence of suspicious mass, ca lcification, or architectural distortion to suggest malignancy in either breast. There has been no lance spicious interval change. IMPRESSION: 1. No mammographic evidence of malignancy. 2. Recommend routine screening mammography in one year. BI-RADS Category 2: Benign finding(s). Reviewed, dictated and finalized at location A. R PRINTER OPERATOR
== END 2022-02-07 13:55 | disposition home or self-care (01) ==
LOC: CHSIMG 13:55
PROVIDERS: PCP Internal Medicine; Visit Provider Internal Medicine
DX: M81.0 Age-related osteoporosis without current pathological fracture (principal); Z12.31 Encounter for screening mammogram for malignant neoplasm of breast
CPT/HCPCS: 77063; 77067; 77080

== ENCOUNTER 2022-09-05 17:23 | Outpatient (CLI) | payer MEDICARE, SELFPAY ==
[2022-09-05 17:46] LABS: Appearance Urine Clear (Clear); Basophils Absolute Auto 0.04 K/mm3 (0.00-0.10); Basophils Percent Auto 0.5 % (0.0-1.0); Bilirubin Urine Negative (Negative); Blood Urine Negative (Negative); Color Urine Yellow (Yellow); Eosinophils Absolute Auto 0.11 K/mm3 (0.02-0.50); Eosinophils Percent Auto 1.4 % (1.0-6.0); Glucose Urine UA Negative (Negative); Hematocrit 39.6 % (35.0-42.0); Hemoglobin 13.1 g/dL (11.7-13.8); Immature Granulocyte Absolute 0.03 K/mm3 (0.00-0.00); Immature Granulocyte Percent A 0.4 % (0.0-0.0); Ketones Urine Negative (Negative); Leukocyte Esterase Ur Negative (Negative); Lymphocytes Absolute Auto 2.61 K/mm3 (1.10-4.50); Lymphocytes Percent Auto 32.8 % (18.0-42.0); Mean Corpuscular HGB Conc 33.1 g/dL (32.0-36.0); Mean Corpuscular Hemoglobin 31.6 pg (27.0-31.0); Mean Corpuscular Volume 95.7 fL (78.0-102.0); Mean Platelet Volume 11.8 fl (9.2-11.8); Monocytes Percent Auto 10.1 % (2.0-11.0); Neutrophils Absolute Auto 4.4 K/mm3 (1.7-7.2); Neutrophils Percent Auto 54.8 % (50.0-70.0); Nitrate Urine Negative (Negative); Platelet Count Result 218 K/mm3 (150-420); Protein Urine Negative (Negative); Red Blood Count 4.14 M/mm3 (4.20-5.40); Urobilinogen Urine 0.2 mg/dL (0.2-1.0)
[2022-09-05 17:55] LABS: Add Urine Microscopic? NO
[2022-09-05 18:10] LABS: Alanine Aminotransferase 54 U/L (14-59); Albumin Level 3.8 g/dL (3.4-5.0); Alkaline Phosphatase 89 U/L (46-116); Anion Gap 10 mmol/L (8-16); Aspartate Amino Transferase 39 U/L (15-37); Bilirubin,Total 0.6 mg/dL (0.00-1.00); Blood Urea Nitrogen 18 mg/dL (7-18); Calcium 9.7 mg/dL (8.5-10.1); Carbon Dioxide 27 mmol/L (21-32); Chloride 102 mmol/L (98-108); Cholesterol 211 mg/dL (0-200); Estimated Glomerular Filt Rate 40; Glucose 104 mg/dL (70-99); HDL Direct 54 mg/dL (40-60); LDL Cholesterol Calculated 132 mg/dL (<130); Osmolality Calculated 289 mOsm/kg (285-295); Potassium 4.1 mmol/L (3.5-5.1); Sodium 139 mmol/L (136-145); Thyroid Stimulating Hormone 1.54 uIU/mL (0.36-3.74); Total Protein 7.4 g/dL (6.4-8.2); Triglycerides 126 mg/dL (0-150)
== END 2022-09-05 17:24 | disposition home or self-care (01) ==
LOC: CHSLAB 17:25
PROVIDERS: PCP Internal Medicine; Visit Provider Internal Medicine
DX: E78.5 Hyperlipidemia, unspecified (principal); F03.90 Unspecified dementia, unspecified severity, without behavioral disturbance, psychotic disturbance, mood disturbance, and anxiety; I10 Essential (primary) hypertension
CPT/HCPCS: 36415; 80053; 80061; 81003; 84443; 85025

== ENCOUNTER 2022-09-18 12:36 | Outpatient (CLI) | payer MEDICARE, SELFPAY ==
--- NOTE | 2022-09-18 12:55 | ECG_ITS ---
Rate NM QRSd QT QTc P QRS T Severity 75 217 88 324 363 44 -31 42 Abnormal ECG SINUS RHYTHM WITH FIRST DEGREE AV BLOCK LEFT AXIS DEVIATION [QRS AXIS < -30] PATTERN CONSISTENT WITH PULMONARY DISEASE NONSPECIFIC T-WAVE ABNORMALITY COMPARED TO ECG 03/04/2021 13:17:56 SINUS RHYTHM NOW PRESENT FIRST DEGREE AV BLOCK NOW PRESENT LEFT-AXIS DEVIATION NOW PRESENT T-WAVE ABNORMALITY NOW PRESENT Electronically Signed On 09-18-2022 13:44:34 CDT by Caroline BROOKE
== END 2022-09-18 12:37 | disposition home or self-care (01) ==
LOC: CHSCARD 12:38
PROVIDERS: PCP Internal Medicine; Visit Provider Internal Medicine
DX: I48.92 Unspecified atrial flutter (principal); R94.31 Abnormal electrocardiogram [ECG] [EKG]
CPT/HCPCS: 93005

== ENCOUNTER 2023-04-03 14:02 | Outpatient (CLI) | payer MEDICARE, SELFPAY ==
[2023-04-03 14:22] LABS: Basophils Absolute Auto 0.08 K/mm3 (0.00-0.10); Eosinophils Absolute Auto 0.13 K/mm3 (0.02-0.50); Eosinophils Percent Auto 1.6 % (1.0-6.0); Hematocrit 40.6 % (35.0-42.0); Hemoglobin 13.3 g/dL (11.7-13.8); Immature Granulocyte Absolute 0.04 K/mm3 (0.00-0.00); Immature Granulocyte Percent A 0.5 % (0.0-0.0); Lymphocytes Absolute Auto 2.25 K/mm3 (1.10-4.50); Lymphocytes Percent Auto 28.5 % (18.0-42.0); Mean Corpuscular HGB Conc 32.8 g/dL (32.0-36.0); Mean Corpuscular Hemoglobin 31.6 pg (27.0-31.0); Mean Corpuscular Volume 96.4 fL (78.0-102.0); Monocytes Absolute Auto 0.73 K/mm3 (0.10-0.90); Monocytes Percent Auto 9.3 % (2.0-11.0); Neutrophils Absolute Auto 4.7 K/mm3 (1.7-7.2); Neutrophils Percent Auto 59.1 % (50.0-70.0); Platelet Count Result 233 K/mm3 (150-420); Red Blood Count 4.21 M/mm3 (4.20-5.40); Red Cell Distribution Width 14.6 % (11.6-14.4); White Blood Count 7.9 K/mm3 (4.8-10.8)
[2023-04-03 14:23] LABS: Appearance Urine Clear (Clear); Bilirubin Urine Negative (Negative); Blood Urine Negative (Negative); Color Urine Light Yellow (Yellow); Glucose Urine UA Negative (Negative); Ketones Urine Negative (Negative); Leukocyte Esterase Ur Trace LEU/UL (Negative); Nitrate Urine Negative (Negative); Protein Urine Negative (Negative); Urobilinogen Urine 0.2 mg/dL (0.2-1.0); pH Urine 6.5 (5.0-8.0)
[2023-04-03 14:46] LABS: Add Urine Microscopic? YES; RBC Urine 0-2 /hpf (0-2); Squamous Epithelial Cell Urine Few /hpf (Few); Transitional Epi Cells Urine None seen /hpf
[2023-04-03 14:47] LABS: Bacteria Urine Trace /hpf
[2023-04-03 15:02] LABS: Alanine Aminotransferase 53 U/L (14-59); Albumin Level 3.9 g/dL (3.4-5.0); Alkaline Phosphatase 85 U/L (46-116); Anion Gap 7 mmol/L (8-16); Aspartate Amino Transferase 28 U/L (15-37); Bilirubin,Total 0.5 mg/dL (0.00-1.00); Blood Urea Nitrogen 17 mg/dL (7-18); Calcium 9.9 mg/dL (8.5-10.1); Carbon Dioxide 29 mmol/L (21-32); Chloride 102 mmol/L (98-108); Cholesterol 258 mg/dL (0-200); Estimated Glomerular Filt Rate 40; Glucose 115 mg/dL (70-99); HDL Direct 63 mg/dL (40-60); LDL Cholesterol Calculated 170 mg/dL (<130); Osmolality Calculated 288 mOsm/kg (285-295); Sodium 138 mmol/L (136-145); Thyroid Stimulating Hormone 1.66 uIU/mL (0.36-3.74); Total Protein 7.5 g/dL (6.4-8.2); Triglycerides 127 mg/dL (0-150)
== END 2023-04-03 14:03 | disposition home or self-care (01) ==
LOC: CHSLAB 14:04
PROVIDERS: PCP Internal Medicine; Visit Provider Internal Medicine
DX: E06.3 Autoimmune thyroiditis (principal); I10 Essential (primary) hypertension; N18.31 Chronic kidney disease, stage 3a; E78.5 Hyperlipidemia, unspecified
CPT/HCPCS: 36415; 80053; 80061; 81001; 84443; 85025

== ENCOUNTER 2023-06-26 14:49 | Outpatient (CLI) | payer MEDICARE, SELFPAY ==
--- NOTE | ~2023-06-26 | XR_ITS ---
EXAM: XR lumbar spine 2-3V DATE: 06/26/2023 15:41 HISTORY: B/L LEG PAIN . COMPARISON: None available. FINDINGS: Osteopenia. 4 nonrib-bearing lumbar-type vertebral bodies, presumably relating to sacraliz ation of L5. Cholecystectomy clips. Minimal aortic calcification without evident aneurysm. Mild anter ior wedge deformity at T11 and T12. Large bridging osteophyte at L1-2. Disc space narrowing, osteophy tosis, and vacuum phenomenon at L2-3. Multilevel moderate and severe facet hypertrophy and sclerosis, with interspinous narrowing. IMPRESSION: Mild wedge deformity at T11 and T12, correlate for pain/point tenderness. Multilevel dege nerative disc disease, severe at L2-3. Multilevel moderate-severe facet arthropathy. Reviewed, dictated and finalized at location K. IMPRESSION: Mild wedge deformity at T11 and T12, correlate for pain/point tende rness. Multilevel degenerative disc disease, severe at L2-3. Multilevel moderat e-severe facet arthropathy.
--- NOTE | ~2023-06-26 | XR_ITS ---
EXAM: XR knee RT 3V DATE: 06/26/2023 15:40 HISTORY: B/L LEG PAIN . COMPARISON: None available. FINDINGS: Decreased mineralization. No fracture or dislocation. No lytic or blastic lesion. Severe l ateral and moderate medial joint space narrowing. Exaggerated valgus alignment. Tricompartmental oste ophytosis, severe lateral compartment. No erosion or periosteal change. Soft tissues within normal li mits. Small volume joint effusion. IMPRESSION: Tricompartmental knee osteoarthrosis, severe in the lateral compartment. Reviewed, dictated and finalized at location K. IMPRESSION: Tricompartmental knee osteoarthrosis, severe in the lateral compart ment.
--- NOTE | ~2023-06-26 | XR_ITS ---
EXAM: XR hip BI wo pelvis DATE: 06/26/2023 15:40 HISTORY: B/L LEG PAIN . COMPARISON: None available. FINDINGS: Decreased mineralization. No fracture or dislocation. No lytic or blastic lesion. Mild lum bar degenerative disc disease. Moderate degenerative change at the pubic symphysis. Mild bilateral lance perior hip joint space narrowing and scattered pelvic/hip enthesopathy. No erosion or periosteal orozco ge. Soft tissues within normal limits. IMPRESSION: Mild bilateral hip osteoarthritis. Moderate osteitis pubis. Reviewed, dictated and finalized at location K.
--- NOTE | ~2023-06-26 | XR_ITS ---
EXAM: XR knee LT 3V DATE: 06/26/2023 15:40 HISTORY: B/L LEG PAIN,NKI,CHRONIC . COMPARISON: None available. FINDINGS: Decreased mineralization. No fracture or dislocation. No lytic or blastic lesion. Moderate medial and lateral joint space narrowing, moderate tricompartmental osteophytosis. No erosion or per iosteal change. Soft tissues within normal limits. IMPRESSION: Moderate tricompartmental knee osteoarthritis. Reviewed, dictated and finalized at location K.
[2023-06-26 16:16] LABS: Alanine Aminotransferase 62 U/L (14-59); Albumin Level 3.7 g/dL (3.4-5.0); Alkaline Phosphatase 93 U/L (46-116); Anion Gap 9 mmol/L (4-12); Aspartate Amino Transferase 31 U/L (15-37); Bilirubin,Total 0.6 mg/dL (0.00-1.00); Blood Urea Nitrogen 31 mg/dL (7-18); CRP 0.9 mg/dL (0.0-0.9); Calcium 9.6 mg/dL (8.5-10.1); Carbon Dioxide 28 mmol/L (21-32); Chloride 101 mmol/L (98-108); Estimated Glomerular Filt Rate 50; Glucose 99 mg/dL (70-99); Osmolality Calculated 292 mOsm/kg (285-295); Potassium 4.5 mmol/L (3.5-5.1); Sodium 138 mmol/L (136-145); Total Protein 7.4 g/dL (6.4-8.2)
[2023-06-26 16:42] LABS: Hemoglobin A1C 5.6 % (<5.7)
[2023-07-02 11:07] LABS: Hepatitis A Antibody IgM Nonreactive; Hepatitis B Core Antibody Nonreactive (Nonreactive); Hepatitis B Surface Antigen Nonreactive (Nonreactive); Hepatitis C Virus Antibody Nonreactive
== END 2023-06-26 14:50 | disposition home or self-care (01) ==
LOC: CHSLAB 14:53
PROVIDERS: PCP Internal Medicine; Visit Provider Internal Medicine
DX: I12.9 Hypertensive chronic kidney disease with stage 1 through stage 4 chronic kidney disease, or unspecified chronic kidney disease (principal); N18.2 Chronic kidney disease, stage 2 (mild); R73.01 Impaired fasting glucose; M79.662 Pain in left lower leg; M79.661 Pain in right lower leg; M51.36 Other intervertebral disc degeneration, lumbar region; M16.0 Bilateral primary osteoarthritis of hip; M17.0 Bilateral primary osteoarthritis of knee; R94.5 Abnormal results of liver function studies
CPT/HCPCS: 36415; 72100; 73521; 73562; 80053; 80074; 83036; 86140

== ENCOUNTER 2024-01-18 15:30 | Outpatient (CLI) | payer MEDICARE, SELFPAY ==
[2024-01-18 15:44] LABS: Hematocrit 40.7 % (35.0-42.0); Hemoglobin 13.4 g/dL (11.7-13.8); Mean Corpuscular HGB Conc 32.9 g/dL (32-36); Mean Corpuscular Hemoglobin 31.4 pg (27.0-31.0); Mean Corpuscular Volume 95.3 fL (78.0-102.0); Mean Platelet Volume 11.2 fl (9.2-11.8); Platelet Count Result 219 K/mm3 (150-420); Red Blood Count 4.27 M/mm3 (4.20-5.40); Red Cell Distribution Width 14.3 % (11.6-14.4); White Blood Count 8.6 K/mm3 (4.8-10.8)
[2024-01-18 16:52] LABS: Alanine Aminotransferase 32 U/L (14-59); Albumin Level 3.7 g/dL (3.4-5.0); Alkaline Phosphatase 93 U/L (46-116); Anion Gap 12 mmol/L (4-12); Aspartate Amino Transferase 19 U/L (15-37); Bilirubin,Total 0.6 mg/dL (0.00-1.00); Blood Urea Nitrogen 24 mg/dL (7-18); Calcium 9.7 mg/dL (8.5-10.1); Carbon Dioxide 25 mmol/L (21-32); Chloride 98 mmol/L (98-108); Estimated Glomerular Filt Rate 45; Glucose 102 mg/dL (70-99); Osmolality Calculated 284 mOsm/kg (285-295); Potassium 4.2 mmol/L (3.5-5.1); Sodium 135 mmol/L (136-145); Total Protein 7.5 g/dL (6.4-8.2)
== END 2024-01-18 15:31 | disposition home or self-care (01) ==
LOC: CHSLAB 15:32
PROVIDERS: PCP Internal Medicine; Visit Provider Internal Medicine
DX: N18.2 Chronic kidney disease, stage 2 (mild) (principal); E03.9 Hypothyroidism, unspecified
CPT/HCPCS: 36415; 80053; 84443; 85027

== ENCOUNTER 2024-04-21 15:25 | Outpatient (CLI) | payer MEDICARE, SELFPAY ==
--- NOTE | 2024-04-21 15:30 | ECG_ITS ---
Test Date: 2024-04-21 15:42:02 Measurements Intervals [place] Rate: 110 P: 0 [place]: 0 QRS: -39 QRSD: 112 T: 73 QT: 330 QTc: 447 Interpretive Statements ATRIAL FIBRILLATION WITH RAPID VENTRICULAR RESPONSE LEFT AXIS DEVIATION [QRS AXIS < -30] PATTERN CONSISTENT WITH PULMONARY DISEASE SEPTAL MYOCARDIAL INFARCTION , PROBABLY OLD [40+ ms Q WAVE IN V1/V2] No previous ECG available for comparison Electronically Signed On 04-22-2024 23:57:28 GERIATRIC CARE MANAGER by Crescencio Damon M.D.
== END 2024-04-21 15:26 | disposition home or self-care (01) ==
LOC: CHSCARD 15:28
PROVIDERS: PCP Internal Medicine; Visit Provider Internal Medicine Cardiovascular Disease
DX: I48.0 Paroxysmal atrial fibrillation (principal); I21.9 Acute myocardial infarction, unspecified; R94.31 Abnormal electrocardiogram [ECG] [EKG]
CPT/HCPCS: 93005

== ENCOUNTER 2024-04-29 15:20 | Outpatient (CLI) | payer MEDICARE, SELFPAY ==
--- OUTSIDE RECORDS SUMMARY | 2024-04-29 15:23 | XMS_ITS | Encounter Summary ---
Author Organization [facility] Address [address] [place] [address] Care Team Providers Care Lens Finisher Name Role Phone Unavailable Primary Care Provider Unavailabl e Encounter Details Date Type Department Care Team (Late st Contact Info) Description 05/07/2007 Outpatient Historical [facility] Supp Svcs Blood Flow [address] [place] [address] Sanket Bradley MD [facility] [address] [place] [address] Social History Tobacco Use Types Packs/Day Years Used Date Smoking Tobacco: Never Assessed Comments Unknown Sex and Gender Information Value Date Recorded Sex Assigned at Not on file Legal Sex Female 3:37 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
--- OUTSIDE RECORDS SUMMARY | 2024-04-29 15:23 | XMS_ITS | Encounter Summary ---
Author Organization [facility] Address [address] [place] [address] Care Team Providers Care Bottom Liquor Attendant Name Role Phone Unavailable Primary Care Provider Unavailabl e Encounter Details Date Type Department Care Team (Late st Contact Info) Description 05/06/2007 Outpatient Historical [facility] Cardiology 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
--- OUTSIDE RECORDS SUMMARY | 2024-04-29 15:23 | XMS_ITS | Clinical Summary ---
Author Organization [facility] Address [address] 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
--- OUTSIDE RECORDS SUMMARY | 2024-04-29 15:23 | XMS_ITS | Encounter Summary ---
Author Organization [employer] Address [address] [place] [address] Care Team Providers Care Mat Tester Name Role Phone Unavailable Primary Care Provider Unavailabl e Encounter Details Date Type Department Care Team (Late st Contact Info) Description 05/06/2007 Outpatient Historical [facility] [place], Authorized P [place] [id number] [address] [place] [address] Social History Tobacco Use Types Packs/Day Years Used Date Smoking Tobacco: Never Assessed Comments Unknown Sex and Gender Information Value Date Recorded Sex Assigned at Not on file Legal Sex Female 3:37 AM DEEP SEA DIVER Gender Identity Not on file Sexual Orientation Not on file documented as of this encounter Plan of Treatment Not on file documented as of this encounter Procedures Procedure Name Priority Date/Time Associated Diagnosis Comments ECHO COMPLETE Routine 05/08/2007 7:00 AM DEEP SEA DIVER MRI BRAIN W WO CONTRAST Routine 05/07/19 08 8:42 PM DEEP SEA DIVER NM PHARMACOLOGICAL STRESS TEST Routine 05/07/2007 5:30 PM DEEP SEA DIVER NM MYOCARDIAL PERFUSION EF Routine 05/07/2007 8:30 AM DEEP SEA DIVER GLUCOSE LEVEL Routine 05/07/2007 5:35 AM DEEP SEA DIVER LIPID PANEL Routine 05/07/2007 5:35 AM DEEP SEA DIVER PROTEIN ELECTROPHORESIS W/REFLEX,SERUM Routine 05/06/2007 5:40 PM DEEP SEA DIVER PROTEIN TOTAL Routine 05/06/2007 5:40 PM DEEP SEA DIVER HEMOGLOBIN A1C Routine 05/06/2007 5:40 PM DEEP SEA DIVER URINALYSIS WITH MICROSCOPIC Routine 05/06/2007 3:[address] HEAD WO CONTRAST Routine 05/06/2007 1 1:48 AM DEEP SEA DIVER XR CHEST PA AND LATERAL 2 VW Routine 05/06/2007 11:45 AM DEEP SEA DIVER TROPONIN (W/REFLEX CKMB/CK) Routine 05/06/2007 11:44 AM DEEP SEA DIVER CBC WITH DIFFERENTIAL Routine 05/06/2007 11:44 AM DEEP SEA DIVER CBC WITH DIFFERENTIAL Routine 05/06/2007 11:44 AM DEEP SEA DIVER COMPREHENSIVE METABOLIC PANEL Routine 05/06/2007 11:44 AM DEEP SEA DIVER documented in this encounter Results * ECHOCARDIOGRAM COMPLETE (05/08/2007 7:00 AM DEEP SEA DIVER) Narrative INTERFACE SYSTEM - 05/08/2007 7:00 [place] [address] [email or web address] Transthoracic Echocardiogram Patient: ?August Kinsey Study ID: ? ADULT ECHO FULL Gender: ? F : ?1950 Age: ?56 years Race: ? 1 Room: Bed: Height: ? 65 in ( 165 cm ) Study Date: ? May 07, 2007 Patient status: Weight: ? 229.46 lb ( 104.3 kg ) Access. #: POC: Account #: Indications and History: INDICATIONS: Evaluate for suspected cardiac source of embolism. Assess left ventricular function. Evaluation for coronary artery disease. HISTORY: Chest pain. Left arm numbness. Procedure data: PROCEDURE INFORMATION: A transthoracic complete 2D study was performed. Additional evaluation included M-mode, complete spectral Doppler, and color Doppler. Study Conclusions: SUMMARY: - ??Overall left ventricular systolic function was normal. Left ventricular ejection fraction was estimated to be 55 %. Left ventricular wall thickness was mildly increased. Left ventricular diastolic function parameters were normal. - ??The aortic valve was mildly calcified. - ??Left atrial size was normal. - ??Right ventricular size was normal. Right ventricular systolic function was normal. Cardiac anatomy: LEFT VENTRICLE: Left ventricular size was normal. Overall left ventricular systolic function was normal. Left ventricular ejection fraction was estimated to be 55 %. There were no left ventricular regional wall motion abnormalities. Left ventricular wall thickness was mildly increased. Doppler interpretation(s): There was a normal transmitral flow pattern. The deceleration time of the early transmitral Doppler flow velocity was normal. The pulmonary vein flow pattern was normal. Left ventricular diastolic function parameters were normal. AORTIC VALVE: The aortic valve was mildly calcified. Doppler interpretation(s): There was no evidence for aortic valve stenosis. There was no significant aortic valvular regurgitation. AORTA: The aortic root was normal in size. MITRAL VALVE: Mitral valve structure was normal. Doppler interpretation(s): There was no evidence for mitral stenosis. There was trivial mitral valvular regurgitation. LEFT ATRIUM: Left atrial size was normal. RIGHT VENTRICLE: Right ventricular size was normal. Right ventricular systolic function was normal. Right ventricular wall thickness was normal. TRICUSPID VALVE: The tricuspid valve structure was normal. Tricuspid leaflet excursion was normal. Doppler interpretation(s): The transtricuspid velocity was within the normal range. There was no evidence for tricuspid stenosis. There was no significant tricuspid valvular regurgitation. RIGHT ATRIUM: Right atrial size was normal. SYSTEMIC VEINS: The inferior vena cava was normal. PERICARDIUM: There was no pericardial effusion. Measurement tables: M-mode measurements LEFT VENTRICLE ?NORMAL LVID ed ? 44 ?mm ?-- LVID es ? 31 ?mm ?-- IVS ed ?12 ?mm ?-- LVPWT ed ?12 ?mm ?-- AORTA ? NORMAL AoD (root) ?27 ?mm ?-- LEFT ATRIUM ? NORMAL LAD ? 38 ?mm ?-- Doppler measurements LVOT, AV, AORTA ? NORMAL LVOT max velocity ? 119 ?? cm/sec ??-- LVOT VTI ?21 ?cm ?-- Mean AV velocity ?89.4 ??cm/sec ??-- Peak AV velocity ?181 ?? cm/sec ??-- AV VTI ?33 ?cm ?-- Mean AV gradient ?7.3 ?? mmHg ?-- Peak AV gradient ?13 ?mmHg ?-- MITRAL VALVE ?NORMAL Peak E velocity ? 98 ?cm/sec ??-- Peak A velocity ? 80 ?cm/sec ??-- MV peak E/A ? 1.23 ?-- MV deceleration time ??171 ?? msec ?-- Peak gradient ? 4 ? mmHg ?-- RVOT, PV, PA ?NORMAL PV peak velocity ?129 ?? cm/sec ??-- PV acceleration time ??92 ?msec ?-- PV peak gradient ?7 ? mmHg ?-- PV mean gradient ?3 ? mmHg ?-- Prepared and Electronically Authenticated Jony Guzman MD Confirmed May 07, 2007 17:41:32 Procedure Note Provider, Historical - 05/08/[address] [address]Wryql: [email or web address] Transthoracic Echocardiogram Patient: August Vasquez Study ID: ADULT ECHO FULL Gender: F : 1950 Age: 56 years Race: 1 Room: Bed: Height: 65 in ( 165 cm ) Study Date: May 07, 2007 Patient status: Weight: 229.46 lb ( 104.3 kg ) Access. #: POC: Account #: Indications and History: INDICATIONS: Evaluate for suspected cardiac source of embolism. Assess leftventricular function. Evaluation for coronary artery disease. HISTORY: Chest pain. Left arm numbness. Procedure data: PROCEDURE INFORMATION: A transthoracic complete 2D study was performed. Additional evaluation included M-mode, complete spectral Doppler, and color Doppler. Study Conclusions: SUMMARY: - Overall left ventricular systolic function was normal. Leftventricular ejection fraction was estimated to be 55 %. Left ventricular wall thickness was mildly increased. Left ventricular diastolic function parameters were normal. - The aortic valve was mildly calcified. - Left atrial size was normal. - Right ventricular size was normal. Right ventricular systolicfunction was normal. Cardiac anatomy: LEFT VENTRICLE: Left ventricular size was normal. Overall left ventricular systolic function was normal. Left ventricular ejection fraction was estimated renee 55 %. There were no left ventricular regional wall motion abnormalities. Left ventricular wall thickness was mildly increased. Doppler interpretation(s): There was a normal transmitral flow pattern. The deceleration time of the early transmitral Doppler flow velocity was normal. The pulmonary vein flow pattern was normal. Left ventricular diastolic function parameters were normal. AORTIC VALVE: The aortic valve was mildly calcified. Doppler interpretation(s): Therewas no evidence for aortic valve stenosis. There was no significant aortic valvular regurgitation. AORTA: The aortic root was normal in size. MITRAL VALVE: Mitral valve structure was normal. Doppler interpretation(s): There wasno evidence for mitral stenosis. There was trivial mitral valvular regurgitation. LEFT ATRIUM: Left atrial size was normal. RIGHT VENTRICLE: Right ventricular size was normal. Right ventricular systolic functionwas normal. Right ventricular wall thickness was normal. TRICUSPID VALVE: The tricuspid valve structure was normal. Tricuspid leaflet excursionwas normal. Doppler interpretation(s): The transtricuspid velocity waswithin the normal range. There was no evidence for tricuspid stenosis. Therewas no significant tricuspid valvular regurgitation. RIGHT ATRIUM: Right atrial size was normal. SYSTEMIC VEINS: The inferior vena cava was normal. PERICARDIUM: There was no pericardial effusion. Measurement tables: M-mode measurements LEFT VENTRICLE NORMAL LVID ed 44 mm -- LVID es 31 mm -- IVS ed 12 mm -- LVPWT ed 12 mm -- AORTA NORMAL AoD (root) 27 mm -- LEFT ATRIUM NORMAL LAD 38 mm -- Doppler measurements LVOT, AV, AORTA NORMAL LVOT max velocity 119 cm/sec -- LVOT VTI 21 cm -- Mean AV velocity 89.4 cm/sec -- Peak AV velocity 181 cm/sec -- AV VTI 33 cm -- Mean AV gradient 7.3 mmHg -- Peak AV gradient 13 mmHg -- MITRAL VALVE NORMAL Peak E velocity 98 cm/sec -- Peak A velocity 80 cm/sec -- MV peak E/A 1.23 -- MV deceleration time 171 msec -- Peak gradient 4 mmHg -- RVOT, PV, PA NORMAL PV peak velocity 129 cm/sec -- PV acceleration time 92 msec -- PV peak gradient 7 mmHg -- PV mean gradient 3 mmHg -- Prepared and Electronically Authenticated Jony Guzman MD Confirmed May 07, 2007 17:41:32 us Octaviano Laughlin MD ORDERABLES Final Resu lt INTERFACE SYSTEM Refer to clinic/hospital department * MRI BRAIN W WO CONTRAST (05/07/2007 8:42 PM DEEP SEA DIVER) Anatomical Region Laterality Modality Head Other 05/07/2007 8:42 PM DEEP SEA DIVER Narrative 05/08/2007 11:26 AM DEEP SEA DIVER ? [facility] ? [address] ?[place], [place] ??[address] ?Admit Date: 05/06/2007 ? IRENE VASQUEZ ?Sex: F ?Admit Prov: OCTAVIANO LAUGHLIN ? Date: 1950 ?Primary Care Prov: PCP , NONE ?CMRN: [id number] ?Room: ER-A ? SSN: [id number] ? IMAGING SERVICES ?Ordering Prov: N/A ? Accession Number: [id number] ?Interpretation ? MRI BRAIN WITH AND WITHOUT IV CONTRAST ? MR ANGIO BRAIN WITHOUT CONTRAST ? 05-07-07 ? Indication: Paresthesias. ? Technique: Multiplanar and multisequence MR images were acquired with and ? without intravenous gadolinium. Time of flight MRA was also performed. ? Findings: Diffusion sequences normal without evidence of acute infarct. The ? gradient sequence is normal without evidence of acute or chronic ? hemorrhage. A few foci of patchy T2 hyperintensity are present within the ? white matter of the cerebral hemispheres more on the left. One of them is ? located in the subcortical white matter below the left precentral gyrus. No ? mass effect or abnormal enhancement is identified. The ventricular system ? is normal in size and configuration. Midline structures are not displaced. ? Intracranial vascular flow-voids are present in the anterior and posterior ? circulations. Paranasal sinuses are aerated. ? Time of flight MRA demonstrates symmetric and normal flow signal intensity ? within the distal internal carotid arteries and the middle cerebral ? arteries. The right A1 segment is slightly smaller than left. A patent ? anterior communicating artery is present. The A2 segments are symmetric in ? signal. The left vertebral artery is dominant. The right vertebral artery ? ends primarily in a pica. The basilar artery has normal flow signal. Both ? posterior communicating arteries are patent. The posterior cerebral ? arteries and superior cerebellar arteries arise from a junctional ? infundibulum. No evidence of aneurysm or large vessel occlusion is seen. ? Impression: ? 1. Nonspecific white matter lesions. These may be associated with ? hypertension, diabetes, smoking etc. ? 2. Normal variant MRA with complete qawalangin of [place]árden[place]. ? . ? Dictated by: ??ALDO AVILA ? 05/08/2007 07:42 ? Electronically signed by: ??ALDO AVILA ? 05/08/2007 11:26 ? Transcribed: ??05/08/2007 11:23 ? Procedure Note Provider, Historical - 05/08/2007 [facility] [address] [place], [place] [address] Admit Date: 05/06/2007 IRENE VASQUEZ Sex: F Admit Prov: OCTAVIANO LAUGHLIN Date: 1950 Primary Care Prov: PCP , NONE CMRN: [id number] Room: [facility] SSN: [id number] IMAGING SERVICES Ordering Prov: N/A Interpretation MRI BRAIN WITH AND WITHOUT IV CONTRAST MR ANGIO BRAIN WITHOUT CONTRAST 05-07-07 Indication: Paresthesias. Technique: Multiplanar and multisequence MR images were acquired withand without intravenous gadolinium. Time of flight MRA was alsoperformed. Findings: Diffusion sequences normal without evidence of acuteinfarct. The gradient sequence is normal without evidence of acute or chronic hemorrhage. A few foci of patchy T2 hyperintensity are present withinthe white matter of the cerebral hemispheres more on the left. One ofthem is located in the subcortical white matter below the left precentralgyrus. No mass effect or abnormal enhancement is identified. The ventricularsystem is normal in size and configuration. Midline structures are notdisplaced. Intracranial vascular flow-voids are present in the anterior andposterior circulations. Paranasal sinuses are aerated. Time of flight MRA demonstrates symmetric and normal flow signalintensity within the distal internal carotid arteries and the middle cerebral arteries. The right A1 segment is slightly smaller than left. Apatent anterior communicating artery is present. The A2 segments aresymmetric in signal. The left vertebral artery is dominant. The right vertebralartery ends primarily in a pica. The basilar artery has normal flow signal.Both posterior communicating arteries are patent. The posterior cerebral arteries and superior cerebellar arteries arise from a junctional infundibulum. No evidence of aneurysm or large vessel occlusion isseen. Impression: 1. Nonspecific white matter lesions. These may be associated with hypertension, diabetes, smoking etc. 2. Normal variant MRA with complete qawalangin of [place]ár[place]. . Dictated by: ALDO AVILA 05/08/2007 07:42 Electronically signed by: ALDO AVILA 05/08/2007 11:26 Transcribed: 05/08/2007 11:23 MD us Octaviano Laughlin MD MR ORDERABLES Final Resu lt * NM PHARMACOLOGICAL STRESS TEST (05/07/2007 5:30 PM DEEP SEA DIVER) Narrative INTERFACE SYSTEM - 05/07/2007 5:30 PM DEEP SEA DIVER [facility] [address] [place] [address] [email or web address] [facility] Carotid Duplex Study Patient: ?August Vasquez Study ID: ? BLOOD FLOW STUDY Gender: ? F : ?1950 Age: ?56 years Race: ? 1 Room: Bed: Height: Study Date: ? May 07, 2007 Patient status: Outpatient Weight: Access. 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 JeevanIssa Ordering: ?Octaviano Luque Attending MD: ??Octaviano Luque Admitting MD: ??Octaviano Luque SUMMARY: The left and right carotid Doppler velocities and ratios are within normal limits, excluding significant stenosis. Bilateral vertebral flow is antegrade. VELOCITY IMPRESSIONS The left and right carotid Doppler velocities and ratios are within normal limits, excluding significant stenosis. Bilateral vertebral flow is antegrade. COMPARISONS No previous study was available for comparison. HISTORY AND INDICATIONS: INDICATIONS Headache,left arm pain. BASELINE PHYSICAL EXAMINATION Baseline brachial blood pressure: 150 / 100 mmHg (right) 150 / 100 mmHg (left). STUDY INFORMATION: PROCEDURE PERFORMED A duplex study of the right and left carotid systems was performed with B-Mode imaging and spectral analysis. PROCEDURE DETAIL This was an inpatient procedure. DOPPLER VELOCITIES CCA proximal R peak systolic: ?? 83 cm/sec R end diastolic: ?? 23 cm/sec L peak systolic: ?? 120 cm/sec L end diastolic: ?? 33 cm/sec CCA distal R peak systolic: ?? 80 cm/sec R end diastolic: ?? 21 cm/sec L peak systolic: ?? 97 cm/sec L end diastolic: ?? 31 cm/sec ICA proximal R peak systolic: ?? 70 cm/sec R end diastolic: ?? 18 cm/sec L peak systolic: ?? 81 cm/sec L end diastolic: ?? 22 cm/sec ICA distal R peak systolic: ?? 57 cm/sec R end diastolic: ?? 27 cm/sec L peak systolic: ?? 82 cm/sec L end diastolic: ?? 39 cm/sec ECA R peak systolic: ?? 132 cm/sec R end diastolic: ?? -- L peak systolic: ?? 93 cm/sec L end diastolic: ?? -- Vertebral artery R peak systolic: ?? 66 cm/sec R end diastolic: ?? -- L peak systolic: ?? 41 cm/sec L end diastolic: ?? -- Prepared and Electronically Authenticated Sanket Bradley Confirmed May 07, 2007 17:29:09 Procedure Note Provider, Historical - 06/04/2007 [place] [address] [place], [place] [address]Pxfbs: [email or web address] [facility] Carotid Duplex Study Patient: August Kinsey Study ID: BLOOD FLOW STUDY Gender: F : 1950 Age: 56 years Race: 1 Room: Bed: Height: Study Date: May 07, 2007 Patient status: Outpatient Weight: Access. 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 Bilateral vertebral flow is antegrade. VELOCITY IMPRESSIONS The left and right carotid Doppler velocities and ratios are withinnormal limits, excluding significant stenosis. Bilateral vertebral flow is antegrade. COMPARISONS No previous study was available for comparison. HISTORY AND INDICATIONS: INDICATIONS Headache,left arm pain. BASELINE PHYSICAL EXAMINATION Baseline brachial blood pressure: 150 / 100 mmHg (right) 150 / 100 mmHg (left). STUDY INFORMATION: PROCEDURE PERFORMED A duplex study of the right and left carotid systems was performed with B-Mode imaging and spectral analysis. PROCEDURE DETAIL This was an inpatient procedure. DOPPLER VELOCITIES CCA proximal R peak systolic: 83 cm/sec R end diastolic: 23 cm/sec L peak systolic: 120 cm/sec L end diastolic: 33 cm/sec CCA distal R peak systolic: 80 cm/sec R end diastolic: 21 cm/sec L peak systolic: 97 cm/sec L end diastolic: 31 cm/sec ICA proximal R peak systolic: 70 cm/sec R end diastolic: 18 cm/sec L peak systolic: 81 cm/sec L end diastolic: 22 cm/sec ICA distal R peak systolic: 57 cm/sec R end diastolic: 27 cm/sec L peak systolic: 82 cm/sec L end diastolic: 39 cm/sec ECA R peak systolic: 132 cm/sec R end diastolic: -- L peak systolic: 93 cm/sec L end diastolic: -- Vertebral artery R peak systolic: 66 cm/sec R end diastolic: -- L peak systolic: 41 cm/sec L end diastolic: -- Prepared and Electronically Authenticated Sanket Bradley Confirmed May 07, 2007 17:29:09 us Octaviano Laughlin MD NM ORDERABLES Final Resu lt INTERFACE SYSTEM Refer to clinic/hospital department * NM MYOCARDIAL PERFUSION EF (05/07/2007 8:30 AM DEEP SEA DIVER) 05/07/2007 8:30 AM DEEP SEA DIVER Narrative INTERFACE SYSTEM - 05/07/2007 10:42 AM DEEP SEA DIVER Ordered by System System ? [facility] ? [address] ?. [place], [place] ??[address] ?Admit Date: 05/06/2007 ? IRENE VASQUEZ ?Sex: F ?Admit Prov: OCTAVIANO LAUGHLIN ? Date: 1950 ?Primary Care Prov: PCP , NONE ?CMRN: [id number] ?Room: [facility]9 2 ?SSN: [id number] ? IMAGING SERVICES ?Ordering Prov: N/A ? Accession Number: [id number] ?Interpretation ? Myocardial perfusion imaging, multiple SPECT with Adenosine pharmacologic ? stress ? ECG interpretation and supervisory report provided in a separate dictation ? by cardiology. ? Indication: Assessment of acute chest pain ? Clinical History: ? 56 year old female with no ??known coronary artery disease ? Cardiac risk factors include: family history of CAD ? Previous cardiac history: None ? Current symptoms include: Atypical chest pain, left face and neck tingling ? Procedure: ? The patient underwent a pharmacologic myocardial perfusion imaging study ? using 59 mg of intravenous Adenosine ??infused at a rate of 140 mcg/kg/min ? for 4 ??minutes. Adenosine infusion was augmented with low level treadmill ? exercise. ??The resting heart rate was 91 and altered to 119 with ? pharmacologic stress. Resting blood pressure was 136 / 94 mm Hg and changed ? to 175 / 104 mm Hg with pharmacologic stress with a final blood pressure of ? 153 / 101 mm Hg. The blood pressure response to pharmacologic stress was ? hypertensive. Symptoms during pharmacologic stress: Dyspnea. ? The resting electrocardiogram showed sinus rhythm with nonspecific ST-T ? changes. The vasodilation ECG showed no ??ST segment changes consistent with ? myocardial ischemia during pharmacologic stress. Myocardial perfusion ? imaging was performed at rest 35 minutes following the intravenous ? injection of 10 mCi of 99m-Technetium Tetrofosmin. The patient was injected ? with 42.2 mCi of intravenous 99m-Technetium Tetrofosmin ??2 ??minutes into ? the pharmacologic infusion which was continued for an additional 2 ? minute(s). Post pharmacologic stress tomographic imaging was performed 45 ? minutes later. SPECT reconstruction was performed in the short, vertical ? long and horizontal axis views in both resting and gated image sets. ? Findings: ? The overall quality of the study is adequate. Substantial breast ? attenuation is seen on both imagesets, worse on resting images. Stomach ? contamination of the inferior wall on resting study only ? Left ventricular cavity size is normal ??on the resting study with normal LV ? myocardial wall thickness.. Left ventricular cavity size is normal ??on the ? post pharmacologic stress study. There is no ??evidence of abnormal lung ? activity. The right ventricle cavity size is normal ??with normal RV ? myocardial wall thickness. ? Post pharmacologic stress SPECT images demonstrate mild breast attenuation ? of the distal anteroseptal wall. The resting images demonstrate worsening ? attenuation artifact of the distal to mid anteroseptal wall and stomach ? contamination of the mid to basal inferolateral wall. Gated SPECT imaging ? reveals normal myocardial thickening and wall motion. The left ventricular ? ejection fraction was calculated to be normal ??at 72 % (Normal range: 50- 80 ? %). [place] images are available on the [facility] PACS system for review. ? Impression: ? 1. Probably normal pharmacologic stress myocardial perfusion imaging. ??No ? scintigraphic evidence of ischemia. Breast attenuation artifacts and ? stomach contamination of the inferior wall on resting images ? 2. Overall normal ??left ventricular function with an ejection fraction of ? 72 % without regional wall motion abnormalities. ? 3. No previous studies available for comparison. ? . ? Dictated by: ??QUE RICHARDSON ? 05/07/2007 10:39 ? Electronically signed by: ??QUE RICHARDSON ? 05/07/2007 10:42 Procedure Note Que Richardson - 05/07/2007 Ordered by System System [facility] [address] [place], [place] [address] Admit Date: 05/06/2007 KAYLAN IRENE Pandey Sex: F Admit Prov: OCTAVIANO LAUGHLIN Date: 1950 Primary Care Prov: PCP , NONE CMRN: [id number] Room: [address] [place] [address] SSN: [id number] IMAGING SERVICES Ordering Prov: N/A Interpretation Myocardial perfusion imaging, multiple SPECT with Adenosinepharmacologic stress ECG interpretation and supervisory report provided in a separatedictation by cardiology. Indication: Assessment of acute chest pain Clinical History: 56 year old female with no known coronary artery disease Cardiac risk factors include: family history of CAD Previous cardiac history: None Current symptoms include: Atypical chest pain, left face and necktingling Procedure: The patient underwent a pharmacologic myocardial perfusion imagingstudy using 59 mg of intravenous Adenosine infused at a rate of 140mcg/kg/min for 4 minutes. Adenosine infusion was augmented with low leveltreadmill exercise. The resting heart rate was 91 and altered to 119 with pharmacologic stress. Resting blood pressure was 136 / 94 mm Hg andchanged to 175 / 104 mm Hg with pharmacologic stress with a final bloodpressure of 153 / 101 mm Hg. The blood pressure response to pharmacologic stresswas hypertensive. Symptoms during pharmacologic stress: Dyspnea. The resting electrocardiogram showed sinus rhythm with nonspecificST-T changes. The vasodilation ECG showed no ST segment changesconsistent with myocardial ischemia during pharmacologic stress. Myocardialperfusion imaging was performed at rest 35 minutes following the intravenous injection of 10 mCi of 99m-Technetium Tetrofosmin. The patient wasinjected with 42.2 mCi of intravenous 99m-Technetium Tetrofosmin 2 minutesinto the pharmacologic infusion which was continued for an additional 2 minute(s). Post pharmacologic stress tomographic imaging wasperformed 45 minutes later. SPECT reconstruction was performed in the short,vertical long and horizontal axis views in both resting and gated imagesets. Findings: The overall quality of the study is adequate. Substantial breast attenuation is seen on both imagesets, worse on resting images.Stomach contamination of the inferior wall on resting study only Left ventricular cavity size is normal on the resting study withnormal LV myocardial wall thickness.. Left ventricular cavity size is normalon the post pharmacologic stress study. There is no evidence of abnormallung activity. The right ventricle cavity size is normal with normal RV myocardial wall thickness. Post pharmacologic stress SPECT images demonstrate mild breastattenuation of the distal anteroseptal wall. The resting images demonstrateworsening attenuation artifact of the distal to mid anteroseptal wall andstomach contamination of the mid to basal inferolateral wall. Gated SPECTimaging reveals normal myocardial thickening and wall motion. The leftventricular ejection fraction was calculated to be normal at 72 % (Normal range:50-80 %). [place] images are available on the hospital PACS system [employer]. Impression: 1. Probably normal pharmacologic stress myocardial perfusion imaging.No scintigraphic evidence of ischemia. Breast attenuation artifactsand stomach contamination of the inferior wall on resting images 2. Overall normal left ventricular function with an ejectionfraction of 72 % without regional wall motion abnormalities. 3. No previous studies available for comparison. . Dictated by: QUE RICHARDSON 05/07/2007 10:39 Electronically signed by: QUE RICHARDSON 05/07/2007 10:42 Historical Provider NM ORDERABLES Final Result Performing Organization Address [facility] Phone Number INTERFACE SYSTEM Refer to clinic/hospital department * (ABNORMAL) GLUCOSE LEVEL (05/07/2007 5:35 AM DEEP SEA DIVER) GLUCOSE 105(H) 65 - 99 mg/dL INTERFACE SYSTEM 05/07/2007 5:35 AM DEEP SEA DIVER us Octaviano Laughlin MD CHEMISTRY ORDERABLES Final Result Performing Organization Address [facility] Co de Phone Number INTERFACE SYSTEM Refer to clinic/hospital department * (ABNORMAL) LIPID PANEL (05/07/2007 5:35 AM DEEP SEA DIVER) CHOLESTEROL 203(H) 100 - 199 mg/dL INTERFACE SYSTEM TRIGLYCERIDE 102 10 - 149 mg/dL INTERFACE SYSTEM HDL 41 40 - 59 mg/dL INTERFACE SYSTEM CHOL/HDL RATIO 5.0 2.0 - 5.0 INTER FACE SYSTEM LDL CALCULATED 142(H) <=99 mg/dL INTERFACE SYSTEM LIPID PANEL COMMENT See Below INTERFACE SYSTEM Comment: The adult ATP and pediatric NCEP classifications for lipids are available on the [facility] Intranet at: [email or web address] Select: Lab Policies and Procedures,Current Select: Lipid Panel Interpretation 05/07/2007 5:35 AM DEEP SEA DIVER Octaviano Laughlin MD CHEMISTRY ORDERABLES Final Result Performing Organization Address [facility] Phone Number INTERFACE SYSTEM Refer to clinic/hospital department * (ABNORMAL) PROTEIN ELECTROPHORESIS, SERUM (05/06/2007 5:40 PM DEEP SEA DIVER) PROTEIN TOTAL, SPE 7.2 6.0 - 8.3 g/dL INTERFACE SYSTEM ALBUMIN SPE 3.96 3.60 - 5.00 g/dL INTERFACE SYSTEM ALPHA 1 GLOBULIN SPE 0.14 0.12 - 0.30 g/dL INTERFACE SYSTEM ALPHA 2 GLOBULIN SPE 0.83 0.50 - 1.01 g/dL INTERFACE SYSTEM BETA GLOBULIN 0.93 0.60 - 1.05 g/dL INTERFACE SYSTEM GAMMA GLOBULIN 1.34(H) 0.60 - 1.33 g/dL INTERFACE SYSTEM SPE INTERP INTERFACE SYSTEM Comment: Normal electrophoretic pattern. ELECTROPHORESIS INTERP BY: Pretty Koroma MD INTERFACE SYSTEM 05/06/2007 5:40 PM DEEP SEA DIVER Octaviano Laughlin MD CHEMISTRY ORDERABLES Final Result Performing Organization Address [facility] Phone Number INTERFACE SYSTEM Refer to clinic/hospital department * PROTEIN TOTAL (05/06/2007 5:40 PM DEEP SEA DIVER) TOTAL PROTEIN 7.2 6.3 - 8.6 g/dL INTERFACE SYSTEM 05/06/2007 5:40 PM DEEP SEA DIVER Octaviano Laughlin MD CHEMISTRY ORDERABLES Final Result Performing Organization Address [facility] de Phone Number INTERFACE SYSTEM Refer to clinic/hospital department * HEMOGLOBIN A1C (05/06/2007 5:40 PM DEEP SEA DIVER) HEMOGLOBIN A1C 6.1 4.1 - 6.1 % of Hgb INTERFACE SYSTEM GLUCOSE, MEAN BLOOD 140 mg/dL INTERFACE SYSTEM 05/06/2007 5:40 PM DEEP SEA DIVER us Octaviano Laughlin MD CHEMISTRY ORDERABLES Final Result Performing Organization Address [facility] de Phone Number INTERFACE SYSTEM Refer to clinic/hospital department * (ABNORMAL) URINALYSIS WITH MICROSCOPIC (05/06/2007 3:15 PM DEEP SEA DIVER) COLOR UA Pale Yellow INTERFAC E SYSTEM CLARITY UA Clear Clear INTERFACE SYSTEM SPECIFIC GRAVITY UA 1.005 1.001 - 1.035 INTERFACE SYSTEM PH UA 7.5 5.0 - 8.0 INTERFACE SYSTEM LEUKOCYTE ESTERASE UA 2+(A) Negative INTERFACE SYSTEM NITRITE UA Negative Negative INTERFACE SYSTEM PROTEIN UA Negative Negative INTERFACE SYSTEM GLUCOSE UA Negative Negative INTERFACE SYSTEM KETONES UA Negative Negative INTERFACE SYSTEM UROBILINOGEN UA <1 <=1 mg/dL INTE RFACE SYSTEM BILIRUBIN UA Negative Negative INTERFA CE SYSTEM BLOOD UA Negative Negative INTERFACE SYSTEM WBC UA 4 0 - 5 /HPF INTERFACE SYSTEM RBC UA <1 0 - 4 /HPF INTERFACE SYSTEM EPITHELIAL CELLS, URINE 2-5 /HPF INTERFACE SYSTEM 05/06/2007 3:15 PM DEEP SEA DIVER Jony Lawrence Jr., MD URINE ORDERABLES Final Res ult Performing Organization Address [facility] de Phone Number INTERFACE SYSTEM Refer to clinic/hospital department * CT HEAD WO CONTRAST (05/06/2007 11:48 AM DEEP SEA DIVER) Anatomical Region Laterality Modality Head Other 05/06/2007 11:4 8 AM DEEP SEA DIVER Narrative 05/06/2007 5:12 PM DEEP SEA DIVER ? [facility] ? [address] ?[place], [place] ??[address] ?Admit Date: 05/06/2007 ? IRENE VASQUEZ ?Sex: F ?Admit Prov: OCTAVIANO LAUGHLIN ? Date: 1950 ?Primary Care Prov: PCP , NONE ?CMRN: [id number] ?Room: 5NA 529 2 ?SSN: [id number] ? IMAGING SERVICES ?Ordering Prov: N/A ? Accession Number: [id number] ?Interpretation ? CT SCAN OF HEAD, NONCONTRAST, 05/06/2007 ? History: Tingling sensation, headache, neck and left arm pain. ? Findings: Punctate calcification is identified in the right globus ? pallidus. The ventricular system is midline without shift, dilatation or ? mass effect. Atherosclerotic calcification is noted in the left internal ? carotid artery. No intracranial mass, hemorrhage or infarct is seen. There ? is normal mchugh-white matter differentiation. Calvarium is normal. Paranasal ? sinuses and mastoid air cells are clear. ? Impression: Minimal atherosclerotic calcification in left internal carotid ? artery. Otherwise negative exam. ? Report was called to Dr. Lawrence in the emergency department. ? . ? Dictated by: ??DAYANA BROOKS ?05/06/2007 12:15 ? Electronically signed by: ??DAYANA BROOKS ??05/06/2007 17:12 ? Transcribed: ??05/06/2007 12:28 ?DKT Procedure Note Provider, Historical - 05/06/2007 [facility] [address], [place] [address] Admit Date: 05/06/2007 VASQUEZIRENE Sex: F Admit Prov: OCTAVIANO LAUGHLIN Date: 1950 Primary Care Prov: PCP , NONE CMRN: [id number] Room: [address] [place], [place] [address]N: [id number] IMAGING SERVICES Ordering Prov: N/A Interpretation CT SCAN OF HEAD, NONCONTRAST, 05/06/2007 History: Tingling sensation, headache, neck and left arm pain. Findings: Punctate calcification is identified in the right globus pallidus. The ventricular system is midline without shift, dilatationor mass effect. Atherosclerotic calcification is noted in the leftinternal carotid artery. No intracranial mass, hemorrhage or infarct is seen.There is normal mchugh-white matter differentiation. Calvarium is normal.Paranasal sinuses and mastoid air cells are clear. Impression: Minimal atherosclerotic calcification in left internalcarotid artery. Otherwise negative exam. Report was called to Dr. Lawrence in the emergency department. . Dictated by: DAYANA BROOKS 05/06/2007 12:15 Electronically signed by: DAYANA BROOKS 05/06/2007 17:12 Transcribed: 05/06/2007 12:28 DKT us Jony Lawrence Jr., MD CT ORDERABLES Final Resu lt * XR CHEST PA AND LATERAL (05/06/2007 11:45 AM DEEP SEA DIVER) Anatomical Region Laterality Modality Chest Other 05/06/2007 11:4 5 AM DEEP SEA DIVER Narrative 05/06/2007 12:37 PM DEEP SEA DIVER ? [facility] ? [address] ?[place], [place] ??[address] ?Admit Date: 05/06/2007 ? IRENE VASQUEZ ?Sex: F ?Admit Prov: ER, AUTHORIZED P ? Date: 1950 ?Primary Care Prov: ? CMRN: [id number] ?Room: ER-A ? SSN: [id number] ? IMAGING SERVICES ?Ordering Prov: N/A ? Accession Number: [id number] ?Interpretation ? PA and lateral chest x-ray. ? History: Chest pain. ? Findings: Findings: The lung lua are clear and well aerated without ? significant infiltrate. ??There is no pneumothorax or pleural effusion. ??The ? heart size is normal. ? Impression: No acute disease. ? . ? Dictated by: ??MEL THOMAS ?05/06/2007 12:37 ? Electronically signed by: ??MEL THOMAS ?05/06/2007 12:37 Procedure Note Mel Thomas - 05/06/[address] [address] Admit Date: 05/06/2007 [facility] Sex: F Admit Prov: MANAV NORRIS P Date: 1950 Primary Care Prov: CMRN: [id number] [facility] SS[facility]: [id number] IMAGING SERVICES Ordering Prov: N/A Interpretation PA and lateral chest x-ray. History: Chest pain. Findings: Findings: The lung lua are clear and well aeratedwithout significant infiltrate. There is no pneumothorax or pleuraleffusion. The heart size is normal. Impression: No acute disease. . Dictated by: MEL THOMAS 05/06/2007 12:37 Electronically signed by: MEL THOMAS 05/06/2007 12:37 Jony Lawrence Jr., MD DIAGNOSTIC IMAGING ORDERAB LES Final Result * CBC WITH DIFFERENTIAL (05/06/2007 11:44 AM DEEP SEA DIVER) NEUTROPHILS 67 45 - 70 % INTERFAC E SYSTEM LYMPHOCYTES 23 16 - 45 % INTERFAC E SYSTEM MONOCYTES 7 3 - 13 % INTERFACE SYSTEM EOSINOPHILS 3 0 - 7 % INTERFAC E SYSTEM BASOPHILS 1 0 - 2 % INTERFACE SYSTEM NEUTROPHIL ABSOLUTE 6.09 1.90 - 7.00 K/uL INTERFACE SYSTEM LYMPHOCYTE ABSOLUTE 2.03 0.70 - 4.50 K/uL INTERFACE SYSTEM MONOCYTE ABSOLUTE 0.61 0.10 - 1.30 K/uL INTERFACE SYSTEM EOSINOPHIL ABSOLUTE 0.23 0.00 - 0.70 K/uL INTERFACE SYSTEM BASOPHILS ABSOLUTE 0.08 0.00 - 0.20 K/uL INTERFACE SYSTEM 05/06/2007 11:4 4 AM DEEP SEA DIVER Jony Lawrence Jr., MD HEMATOLOGY ORDERABLES Blanche l Result INTERFACE SYSTEM Refer to clinic/hospital department * (ABNORMAL) CBC WITH DIFFERENTIAL (05/06/2007 11:44 AM DEEP SEA DIVER) WBC 9.0 4.0 - 9.8 K/uL INTERFACE SYSTEM RBC 4.90 3.90 - 4.90 M/uL INTERFACE SYSTEM HEMOGLOBIN 14.5 11.8 - 14.8 g/dL INTERFACE SYSTEM HEMATOCRIT 43.0 35.5 - 44.0 % INTERFACE SYSTEM MCV 87.8 82.0 - 99.0 fL INTERFACE SYSTEM MCH 29.6 27.2 - 32.6 pg INTERFACE SYSTEM MCHC 33.7 31.5 - 35.5 % INTERFACE SYSTEM RDW 14.4 11.5 - 14.5 % INTERFACE SYSTEM RDW-STDEV 45.6 37.1 - 48.7 fL INTERFACE SYSTEM PLATELETS 262 140 - 350 K/uL INTERFACE SYSTEM MPV 13.2(H) 9.3 - 12.4 fL INTERFACE SYSTEM 05/06/2007 11:4 4 AM DEEP SEA DIVER Jony Lawrence Jr., MD HEMATOLOGY ORDERABLES Blanche l Result Performing Organization Address [facility] Co de Phone Number INTERFACE SYSTEM Refer to clinic/hospital department * (ABNORMAL) COMPREHENSIVE METABOLIC PANEL (05/06/2007 11:44 AM DEEP SEA DIVER) GLUCOSE 104(H) 65 - 99 mg/dL INTERFACE SYSTEM CREATININE 0.88 0.51 - 0.95 mg/dL INTERFACE SYSTEM CALCIUM 9.3 8.4 - 10.2 mg/dL INTERFACE SYSTEM ALKALINE PHOSPHATASE 77 35 - 104 U/L INTERFACE SYSTEM AST 47(H) 12 - 32 U/L INTERFACE SYSTEM Comment:Hemolyzed: Result ma y be falsely elevated. ALT 58(H) 0 - 31 U/L INTERFACE SYSTEM TOTAL PROTEIN 8.2 6.3 - 8.6 g/dL INTERFACE SYSTEM ALBUMIN 4.4 3.4 - 4.8 g/dL INTERFACE SYSTEM BILIRUBIN TOTAL 0.5 0.2 - 1.0 mg/dL INTERFACE SYSTEM BUN 9 6 - 20 mg/dL INTERFACE SYSTEM SODIUM 136 135 - 145 mmol/L INTERFACE SYSTEM POTASSIUM 3.8 3.5 - 4.9 mmol/L INTERFACE SYSTEM Comment: Moderate hemolysis present. Can cause significant falsely elevated result. Clinical judgement necessary. Redraw if indicated. CHLORIDE 99 96 - 108 mmol/L INTERFACE SYSTEM CO2 25 22 - 30 mmol/L INTERFACE SYSTEM GFR, >60 >=60 mL/min/1. 7 sq meter INTERFACE SYSTEM GFR >60 >=60 mL/min/1. 7 sq meter INTERFACE SYSTEM Comment: Estimated GFR rate interpretative information for both Americans and non- Americans is available on the [facility] Intranet at: [email or web address] Select: Lab Policies and Procedures Select: Reference Ranges - GFR 05/06/2007 11:4 4 AM DEEP SEA DIVER Jony Lawrence Jr., MD CHEMISTRY ORDERABLES Final Result Performing Organization Address [facility] de Phone Number INTERFACE SYSTEM Refer to clinic/hospital department * TROPONIN (W/REFLEX CKMB/CK) (05/06/2007 11:44 AM DEEP SEA DIVER) TROPONIN T 0.01 <=0.03 ng/mL INTERFACE SYSTEM TROPONIN T INTERP Negative INTERFACE SYSTEM 05/06/2007 11:4 4 AM DEEP SEA DIVER us Jony Lawrence Jr., MD CHEMISTRY ORDERABLES Final Result INTERFACE SYSTEM Refer to clinic/hospital department documented in this encounter Visit Diagnoses Not on filedocumented in this encounter
--- OUTSIDE RECORDS SUMMARY | 2024-04-29 15:23 | XMS_ITS | Encounter Summary ---
Author Organization [facility] Address [address] [place] [address] Care Team Providers Care Automotive Window Tinter Name Role Phone Unavailable Primary Care Provider Unavailabl e Encounter Details Date Type Department Care Team (Late st Contact Info) Description 05/07/2007 Outpatient Historical [facility] Cardiology 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
--- OUTSIDE RECORDS SUMMARY | 2024-04-29 15:23 | XMS_ITS | Encounter Summary ---
Author Organization [facility] Address [address] 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
[2024-04-29 16:07] LABS: Prothrombin Time 20.5 Seconds (9.50-12.1)
[2024-04-29 16:23] LABS: Cholesterol 257 mg/dL (0-200); HDL Direct 48 mg/dL (40-60); LDL Cholesterol Calculated 169 mg/dL (<130); Triglycerides 200 mg/dL (0-150)
== END 2024-04-29 15:21 | disposition home or self-care (01) ==
PROVIDERS: PCP Internal Medicine; Visit Provider Internal Medicine Cardiovascular Disease
DX: I48.0 Paroxysmal atrial fibrillation (principal); E78.5 Hyperlipidemia, unspecified
CPT/HCPCS: 36415; 80061; 85610

== ENCOUNTER 2024-05-23 08:39 | Outpatient (CLI) | payer MEDICARE, SELFPAY ==
--- NOTE | ~2024-05-23 | NM_ITS ---
EXAMINATION: NM caleb stress w perfusion DATE: 05/23/2024 12:30 INDICATION: Paroxysmal atrial fibrillation TECHNIQUE: Rest images were obtained following intravenous administration of 11.7 mCi Tc99m tetrofosm in (Myoview). The patient was infused intravenously with Lexiscan (Regadenoson). Then, 34.6 mCi Tc99m tetrofosmin (Myoview) was administered intravenously, and stress images were obtained. Data was ana nstructed into short axis and horizontal and vertical long axis SPECT images. Gated SPECT images were also obtained. COMPARISON: None. FINDINGS: There is no definite reversible or fixed perfusion abnormality on the post stress images to suggest ischemia or infarction. There is normal left ventricular chamber size, wall motion and ejec tion fraction. Left ventricular ejection fraction measures 58%. IMPRESSION: 1. Normal myocardial perfusion during stress with no evident ischemia or infarct. 2. Left ventricular ejection fraction measuring 58%. Reviewed, dictated and finalized at location B. ECT BINDER FEEDER OFFBEARER IMPRESSION: 1. Normal myocardial perfusion during stress with no evident ischemia or infarc t. 2. Left ventricular ejection fraction measuring 58%.
--- NOTE | 2024-05-23 08:43 | ECHO_ITS ---
Patient Info Name: Irene Vasquez Age: 73 years : 1950 Gender: Female Ht: 65 in Wt: 245 lbs BSA: 2.31 m2 HR: 98 bpm BP: 181 / 109 mmHg Technical Quality: Fair Exam Date: 05/23/2024 8:48 AM Exam Location: Echo Lab Patient Status: Outpatient Admit Date: 05/23/2024 Staff Ordering Physician: Radu Melgar DO Machine Load Clerk: Latoya Ruth RDCS Attending Provider: Radu Melgar DO Referring Physician: Ramón QUINONES; Exam Type: CA echo doppler color flow Study Info Indications - PAF Complete two-dimensional, color flow and Doppler transthoracic echocardiogram is performed. Summary 1. Complete two-dimensional, color flow and Doppler transthoracic echocardiogram is performed. 2. Left ventricular chamber dimension is normal. 3. Left ventricular systolic function is normal, estimated at 65-70%. 4. The left ventricular diastolic function is abnormal. 5. E/e' 11 is mildly elevated. 6. Left atrial chamber dimension is moderately enlarged. 7. There is mild aortic valve sclerosis. 8. There is trace mitral valve regurgitation. Left Ventricle E/e' 11 is mildly elevated. Left ventricular chamber dimension is normal. Left ventricular systolic function is normal, estimated at 65-70%. The left ventricular diastolic function is abnormal. Right Ventricle Right ventricular systolic function is normal and with normal TAPSE 2.1 cm. Right ventricular chamber dimension is normal. Left Atria Left atrial chamber dimension is moderately enlarged. Right Atria Right atrial chamber dimension is normal. Aortic Valve The aortic valve is trileaflet. There is mild aortic valve sclerosis. There is no aortic valve stenosis. There is no aortic valve regurgitation. Pulmonic Valve There is no pulmonic regurgitation. Mitral Valve There is no mitral valve stenosis. There is trace mitral valve regurgitation. Tricuspid Valve There is no tricuspid valve regurgitation. Pericardium/Pleural There is no pericardial effusion. Inferior Vena Cava Normal inferior vena cava with >50% collapse upon inspiration consistent with normal right atrial pressure, 5 mmHg. Aorta The aortic root size at the sinus of Valsalva is normal. Left Ventricular Outflow Tract Name Value Normal LVOT 2D LVOT Diameter 2.0 cm LVOT Doppler LVOT Peak Gradient 4 mmHg LVOT Mean Gradient 2 mmHg LVOT VTI 21 cm LVOT VTI/AV VTI Ratio 0.6 LVOT Stroke Volume 63 ml LVOT CO 5.9 l/min LVOT CI 2.5 l/min/m2 Pulmonic Valve Name Value Normal RVOT Doppler RVOT Peak Gradient 5 mmHg PV Doppler PV Peak Gradient 5 mmHg Mitral Valve Name Value Normal MV Doppler MV Decel Phelps 813 cm/s2 MV PHT 41 ms MV Area (PHT) 5.3 cm2 4.0-5.0 MV Diastolic Function MV E Peak Velocity 115 cm/s MV A Peak Velocity 2 cm/s MV E/A 71.2 MV Decel Time 142 ms MV Annular TDI MV E/e' (Septal) 13.9 <=8.0 MV E/e' (Lateral) 8.6 <=8.0 MV E/e' (Average) 11.2 Tricuspid Valve Name Value Normal Estimated PAP/RSVP RA Pressure 5 mmHg <=5 Aorta Name Value Normal Ascending Aorta Ao Root Diameter (MM) 2.4 cm Ao Root Diam Index (MM) 1.1 cm/m2 Aortic Valve Name Value Normal AV Doppler AV Peak Velocity 212 cm/s AV Peak Gradient 18 mmHg AV Mean Gradient 8 mmHg AV VTI 33 cm AV Area (Cont Eq VTI) 1.9 cm2 >=3.0 AV Area (Cont Eq Rusty) 1.5 cm2 AV Regurgitation 2D LVOT Area 3.1 cm2 Ventricles Name Value Normal LV Dimensions 2D/MM IVS Diastolic Thickness (2D) 0.8 cm 0.6-1.0 LVID Diastole (2D) 5.0 cm 3.8-5.2 LVIW Diastolic Thickness (2D) 0.8 cm 0.6-0.9 LVID Systole (2D) 2.7 cm 2.2-3.5 LVOT Diameter 2.0 cm LV Mass (2D Cubed) 138.86 g 67.00-162.00 LV Mass Index (2D Cubed) 60 g/m2 43-95 Relative Wall Thickness (2D) 0.33 LV Fractional Shortening/Ejection Fraction 2D/MM LV Fractional Shortening (2D) 45 % 27-45 LV EF (2D Teichnoaz) 76 % 54-74 LV Diastolic Volume (4C MOD) 72 ml LV EF (4C MOD) 67 % LV Diastolic Volume (2C MOD) 54 ml LV EF (2C MOD) 71 % LV Diastolic Volume (BP MOD) 62 ml 46-106 LV Diastolic Volume Index (BP MOD) 27 ml/m2 29-61 LV Systolic Volume (BP MOD) 19 ml 14-42 LV Systolic Volume Index (BP MOD) 8 ml/m2 8-24 LV EF (BP MOD) 69 % 54-74 LV Diastolic Length (4C) 7.4 cm LV Systolic Length (4C) 6.3 cm LV Stroke Volume (4C MOD) 48 ml Atria Name Value Normal LA Dimensions LA Dimension (MM) 5.0 cm 2.7-3.8 LA Volume (4C A-L) 70 ml LA Volume (BP A-L) 74 ml RA Dimensions RA Area (4C) 16.8 cm2 <=18.0 Report Signatures
--- NOTE | 2024-05-23 08:43 | EST_ITS ---
Patient Info Name: Irene Vasquez Age: 73 years : 1950 Gender: Female Ht: 65 in Wt: 245 lbs BSA: 2.31 m2 HR: 84 bpm BP: 145 / 88 mmHg Exam Date: 05/23/2024 10:24 AM Exam Location: Echo Lab Patient Status: Outpatient Admit Date: 05/23/2024 Staff Ordering Physician: Radu Melgar DO Attending Provider: Radu Melgar DO Exercise Technologist: Krissy PARKER DEV MANAGER Exercise Physician: Radu Melgar DO Exam Type: CA stress caleb w NM Study Info Indications I48.0 - Paroxysmal atrial fibrillation A regadenoson stress test was performed. Summary 1. 1. Negative lexiscan stress test for ischemic ST changes by ECG criteria. 2. 2. Baseline hypertension. 3. 3. Nuclear scan to follow and will be reported separately. Please correlate with it. 4. 4. Patient informed of the above results. Protocol: Lexiscan Stress ECG Details Stage: REST Duration (min): 0 min : 21 sec HR (bpm): 85 SBP (mmHg): --- DBP (mmHg): --- Stage: REST Duration (min): 5 min : 19 sec HR (bpm): 92 SBP (mmHg): 145 DBP (mmHg): 88 Stage: STAGE 1 Duration (min): 1 min : 0 sec HR (bpm): 104 SBP (mmHg): 147 DBP (mmHg): 78 Stage: RECOVERY Duration (min): 0 min : 48 sec HR (bpm): 106 SBP (mmHg): 147 DBP (mmHg): 78 Rest HR: 92 bpm Peak HR: 107 bpm Rest Sys BP: 145 mmHg Peak Sys BP: 147 mmHg Max Pred HR: 149 bpm % Max Pred HR: 72 % Target HR: 127 bpm Max RPP: 15,729 bpm*mmHg Termination Reason: Completed protocol Cardiac Symptoms: Shortness of breath Total Time: 1 min : 0 sec Rest Calderon BP: 88 mmHg Peak Calderon BP: 78 mmHg Total Dose: 0.4 mg Resting ECG Sinus rhythm. Stress ECG No ST changes. Arrhythmias None. Report Signatures
--- OUTSIDE RECORDS SUMMARY | 2024-05-23 08:59 | XMS_ITS | Encounter Summary ---
Author Organization [facility] Address [address] [place] [address] Care Team Providers Care Lumber Carrier Name Role Phone Unavailable Primary Care Provider Unavailabl e Encounter Details Date Type Department Care Team (Late st Contact Info) Description 05/07/2007 Outpatient Historical [facility] Cardiology 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
--- OUTSIDE RECORDS SUMMARY | 2024-05-23 08:59 | XMS_ITS | Encounter Summary ---
Author Organization [facility] Address [address] [place] [address] Care Team Providers Care Under Cutter Name Role Phone Unavailable Primary Care Provider Unavailabl e Encounter Details Date Type Department Care Team (Late st Contact Info) Description 05/06/2007 Outpatient Historical [facility] [place], Authorized P [place] [address] [address] [place] [address] Social History Tobacco Use Types Packs/Day Years Used Date Smoking Tobacco: Never Assessed Comments Unknown Sex and Gender Information Value Date Recorded Sex Assigned at Not on file Legal Sex Female 3:37 AM DIRECTOR INVESTMENT BANKING Gender Identity Not on file Sexual Orientation Not on file documented as of this encounter Plan of Treatment Not on file documented as of this encounter Procedures Procedure Name Priority Date/Time Associated Diagnosis Comments ECHO COMPLETE Routine 05/08/2007 7:00 AM DIRECTOR INVESTMENT BANKING MRI BRAIN W WO CONTRAST Routine 05/07/19 08 8:42 PM DIRECTOR INVESTMENT BANKING NM PHARMACOLOGICAL STRESS TEST Routine 05/07/2007 5:30 PM DIRECTOR INVESTMENT BANKING NM MYOCARDIAL PERFUSION EF Routine 05/07/2007 8:30 AM DIRECTOR INVESTMENT BANKING GLUCOSE LEVEL Routine 05/07/2007 5:35 AM DIRECTOR INVESTMENT BANKING LIPID PANEL Routine 05/07/2007 5:35 AM DIRECTOR INVESTMENT BANKING PROTEIN ELECTROPHORESIS W/REFLEX,SERUM Routine 05/06/2007 5:40 PM DIRECTOR INVESTMENT BANKING PROTEIN TOTAL Routine 05/06/2007 5:40 PM DIRECTOR INVESTMENT BANKING HEMOGLOBIN A1C Routine 05/06/2007 5:40 PM DIRECTOR INVESTMENT BANKING URINALYSIS WITH MICROSCOPIC Routine 05/06/2007 3:15 PM [address] INVESTMENT BANKING [address] HEAD WO CONTRAST Routine 05/06/2007 1 1:48 AM DIRECTOR INVESTMENT BANKING XR CHEST PA AND LATERAL 2 VW Routine 05/06/2007 11:45 AM DIRECTOR INVESTMENT BANKING TROPONIN (W/REFLEX CKMB/CK) Routine 05/06/2007 11:44 AM DIRECTOR INVESTMENT BANKING CBC WITH DIFFERENTIAL Routine 05/06/2007 11:44 AM DIRECTOR INVESTMENT BANKING CBC WITH DIFFERENTIAL Routine 05/06/2007 11:44 AM DIRECTOR INVESTMENT BANKING COMPREHENSIVE METABOLIC PANEL Routine 05/06/2007 11:44 AM DIRECTOR INVESTMENT BANKING documented in this encounter Results * ECHOCARDIOGRAM COMPLETE (05/08/2007 7:00 AM DIRECTOR INVESTMENT BANKING) Narrative INTERFACE SYSTEM - 05/08/2007 7:00 AM DIRECTOR [place] [address] [email or web address] Transthoracic Echocardiogram Patient: August Vasquez Study ID: [...] 17:41:32 Procedure Note Provider, Historical - 05/08/2007 [facility] [address] [place], [place] [address]Bepsf: [email or web address] Transthoracic Echocardiogram Patient: August Pedro Study ID: ADULT ECHO FULL Gender: F [...] Guzman MD Confirmed May 07, 2007 17:41:32 Octaviano Laughlin MD ORDERABLES Final Resu lt INTERFACE SYSTEM Refer to clinic/hospital department * MRI BRAIN W WO CONTRAST (05/07/2007 8:42 PM DIRECTOR INVESTMENT BANKING) Anatomical Region Laterality Modality Head Other 05/07/2007 8:42 PM DIRECTOR INVESTMENT BANKING Narrative 05/08/2007 11:26 AM DIRECTOR INVESTMENT BANKING [facility] [address], [place] [address] Admit Date: 05/06/2007August A Sex: F Admit Prov: OCTAVIANO LAUGHLIN Date: 1950 Primary Care Prov: PCP , NONE CMRN: [id number] [facility] [address] [place] [address] IMAGING SERVICES Ordering Prov: N/A Accession Number: [id number] Interpretation MRI BRAIN WITH AND WITHOUT IV CONTRAST MR ANGIO BRAIN WITHOUT CONTRAST 2-8-08 Indication: Paresthesias. Technique: Multiplanar and multisequence MR images were acquired with and without intravenous gadolinium. Time of flight MRA was also performed. Findings: Diffusion sequences normal without evidence of acute infarct. The gradient sequence is normal without evidence of acute or chronic hemorrhage. A few foci of patchy T2 hyperintensity are present within the white matter of the cerebral hemispheres more on the left. One of them is located in the subcortical white matter below the left precentral gyrus. No mass effect or abnormal enhancement is identified. The ventricular system is normal in size and configuration. Midline structures are not displaced. Intracranial vascular flow-voids are present in the anterior and posterior circulations. Paranasal sinuses are aerated. Time of flight MRA demonstrates symmetric and normal flow signal intensity within the distal internal carotid arteries and the middle cerebral arteries. The right A1 segment is slightly smaller than left. A patent anterior communicating artery is present. The A2 segments are symmetric in signal. The left vertebral artery is dominant. The right vertebral artery ends primarily in a pica. The basilar artery has normal flow signal. Both posterior communicating arteries are patent. The posterior cerebral arteries and superior cerebellar arteries arise from a junctional infundibulum. No evidence of aneurysm or large vessel occlusion is seen. Impression: 1. Nonspecific white matter lesions. These may be associated with hypertension, diabetes, smoking etc. 2. Normal variant MRA with complete [place]. . Dictated by: ALDO AVILA 05/08/2007 07:42 Electronically signed by: ALDO AVILA 05/08/2007 11:26 Transcribed: 05/08/2007 11:23 MD Procedure Note Provider, Historical - 05/08/2007 [facility] [address], [place] [address] Admit Date: 05/06/2007, AUGUST A Sex: F Admit Prov: OCTAVIANO LAUGHLIN Date: 1950 Primary Care Prov: PCP , NONE CMRN: [id number] Room: [facility] SSN: [id number] IMAGING SERVICES Ordering Prov: N/A Interpretation MRI [...] etc. 2. Normal variant MRA with complete [place]. . Dictated by: ALDO AVILA 05/08/2007 07:42 Electronically signed by: ALDO AVILA 05/08/2007 11:26 Transcribed: 05/08/2007 11:23 Octaviano Laughlin MD MR ORDERABLES Final Resu lt * NM PHARMACOLOGICAL STRESS TEST (05/07/2007 5:30 PM DIRECTOR INVESTMENT BANKING) Narrative INTERFACE SYSTEM - 05/07/2007 5:30 PM DIRECTOR INVESTMENT BANKING [facility] [address] [place] [address] [email or web address] Noninvasive Vascular Lab Carotid Duplex Study Patient: August Vasquez Study ID: BLOOD FLOW STUDY Gender: F : 1950 Age: 56 years Race: 1 Room: Bed: Height: Study Date: May 07, 2007 Patient status: Outpatient Weight: Access. #: [id number] POC: Flyer Repairer: Pawel Ordering: Octaviano Luque Attending MD: Octaviano [...] 17:29:09 Procedure Note Provider, Historical - 06/04/2007 [address] [address] [place], [place] [address]Lkynv: [email or web address] Noninvasive Vascular Lab Carotid Duplex Study Patient: August Vasquez Study ID: BLOOD FLOW STUDY Gender: F : 1950 Age: 56 years Race: 1 Room: Bed: Height: Study Date: May 07, 2007 Patient status: Outpatient Weight: Access. #: [id number] POC: Flyer Repairer: Pawel Ordering: Octaviano Luque Attending MD: Octaviano [...] NM MYOCARDIAL PERFUSION EF (05/07/2007 8:30 AM DIRECTOR INVESTMENT BANKING) 05/07/2007 8:30 AM DIRECTOR INVESTMENT BANKING Narrative INTERFACE SYSTEM - 05/07/2007 10:42 AM DIRECTOR INVESTMENT BANKING Ordered by System System [facility] [address], [place] [address] Admit Date: 05/06/2007August Sex: F Admit Prov: OCTAVIANO LAUGHLIN Date: 1950 Primary Care Prov: PCP , NONE CMRN: [id number] Room: [address] [place] [address] SSN: [id number] IMAGING SERVICES Ordering Prov: N/A Accession Number: [id number] Interpretation Myocardial perfusion imaging, multiple SPECT with Adenosine pharmacologic stress ECG interpretation and supervisory report provided in a separate dictation by cardiology. Indication: Assessment of acute chest pain Clinical History: 56 year old female with no known coronary artery disease Cardiac risk factors include: family history of CAD Previous cardiac history: None Current symptoms include: Atypical chest pain, left face and neck tingling Procedure: The patient underwent a pharmacologic myocardial perfusion imaging study using 59 mg of intravenous Adenosine infused at a rate of 140 mcg/kg/min for 4 minutes. Adenosine infusion was augmented with low level treadmill exercise. The resting heart rate was 91 and altered to 119 with pharmacologic stress. Resting blood pressure was 136 / 94 mm Hg and changed to 175 / 104 mm Hg with pharmacologic stress with a final blood pressure of 153 / 101 mm Hg. The blood pressure response to pharmacologic stress was hypertensive. Symptoms during pharmacologic stress: Dyspnea. The resting electrocardiogram showed sinus rhythm with nonspecific ST-T changes. The vasodilation ECG showed no ST segment changes consistent with myocardial ischemia during pharmacologic stress. Myocardial perfusion imaging was performed at rest 35 minutes following the intravenous injection of 10 mCi of 99m-Technetium Tetrofosmin. The patient was injected with 42.2 mCi of intravenous 99m-Technetium Tetrofosmin 2 minutes into the pharmacologic infusion which was continued for an additional 2 minute(s). Post pharmacologic stress tomographic imaging was performed 45 minutes later. SPECT reconstruction was performed in the short, vertical long and horizontal axis views in both resting and gated image sets. Findings: The overall quality of the study is adequate. Substantial breast attenuation is seen on both imagesets, worse on resting images. Stomach contamination of the inferior wall on resting study only Left ventricular cavity size is normal on the resting study with normal LV myocardial wall thickness.. Left ventricular cavity size is normal on the post pharmacologic stress study. There is no evidence of abnormal lung activity. The right ventricle cavity size is normal with normal RV myocardial wall thickness. Post pharmacologic stress SPECT images demonstrate mild breast attenuation of the distal anteroseptal wall. The resting images demonstrate worsening attenuation artifact of the distal to mid anteroseptal wall and stomach contamination of the mid to basal inferolateral wall. Gated SPECT imaging reveals normal myocardial thickening and wall motion. The left ventricular ejection fraction was calculated to be normal at 72 % (Normal range: 50-80 %). [place] images are available on the hospital PACS system for review. Impression: 1. Probably normal pharmacologic stress myocardial perfusion imaging. No scintigraphic evidence of ischemia. Breast attenuation artifacts and stomach contamination of the inferior wall on resting images 2. Overall normal left ventricular function with an ejection fraction of 72 % without regional wall motion abnormalities. 3. No previous studies available for comparison. . Dictated by: QUE RICHARDSON 05/07/2007 10:39 Electronically signed by: QUE RICHARDSON 05/07/2007 10:42 Procedure Note Que Richardson - 05/07/2007 Ordered by System System [facility] [address] [place], [place] [address] Admit Date: 05/06/2007 VASQUEZAugust Sex: F Admit Prov: OCTAVIANO LAUGHLIN Date: 1950 Primary Care Prov: PCP , NONE CMRN: [id number] Room: [address] [place] [address] SSN: [id number] IMAGING SERVICES Ordering Prov: N/A Interpretation Myocardial [...] are available on the hospital PACS system [place]. Impression: 1. Probably normal pharmacologic stress myocardial perfusion imaging.No scintigraphic evidence of ischemia. Breast attenuation artifactsand stomach contamination of the inferior wall on resting images 2. Overall normal left ventricular function with an ejectionfraction of 72 % without regional wall motion abnormalities. 3. No previous studies available for comparison. . Dictated by: QUE RICHARDSON 05/07/2007 10:39 Electronically signed by: QUE RICHARDSON 05/07/2007 10:42 us Historical Provider NM ORDERABLES Final Result Performing Organization Address [facility] Co de Phone Number INTERFACE SYSTEM Refer to clinic/hospital department * (ABNORMAL) GLUCOSE LEVEL (05/07/2007 5:35 AM DIRECTOR INVESTMENT BANKING) GLUCOSE 105(H) 65 - 99 mg/dL INTERFACE SYSTEM 05/07/2007 5:35 AM DIRECTOR INVESTMENT BANKING Octaviano Laughlin MD CHEMISTRY ORDERABLES Final Result Performing Organization Address [facility]/ZIP Co de Phone Number INTERFACE SYSTEM Refer to clinic/hospital department * (ABNORMAL) LIPID PANEL (05/07/2007 5:35 AM DIRECTOR INVESTMENT BANKING) CHOLESTEROL 203(H) 100 - 199 mg/dL INTERFACE SYSTEM TRIGLYCERIDE 102 10 - 149 mg/dL INTERFACE SYSTEM HDL 41 40 - 59 mg/dL INTERFACE SYSTEM CHOL/HDL RATIO 5.0 2.0 - 5.0 INTER FACE SYSTEM LDL CALCULATED 142(H) <=99 mg/dL INTERFACE SYSTEM LIPID PANEL COMMENT See Below INTERFACE SYSTEM Comment: The adult ATP and pediatric NCEP classifications for lipids are available on the [facility] Intranet at: [email or web address] Select: Lab Policies and Procedures,Current Select: Lipid Panel Interpretation 05/07/2007 5:35 AM DIRECTOR INVESTMENT BANKING Octaviano Laughlin MD CHEMISTRY ORDERABLES Final Result Performing Organization Address [facility] Phone Number INTERFACE SYSTEM Refer to clinic/hospital department * (ABNORMAL) PROTEIN ELECTROPHORESIS, SERUM (05/06/2007 5:40 PM DIRECTOR INVESTMENT BANKING) PROTEIN TOTAL, SPE 7.2 6.0 - 8.3 [...] Koroma MD INTERFACE SYSTEM 05/06/2007 5:40 PM DIRECTOR INVESTMENT BANKING Octaviano Laughlin MD CHEMISTRY ORDERABLES Final Result Performing Organization Address [facility] de Phone Number INTERFACE SYSTEM Refer to clinic/hospital department * PROTEIN TOTAL (05/06/2007 5:40 PM DIRECTOR INVESTMENT BANKING) TOTAL PROTEIN 7.2 6.3 - 8.6 g/dL INTERFACE SYSTEM 05/06/2007 5:40 PM DIRECTOR INVESTMENT BANKING Octaviano Laughlin MD CHEMISTRY ORDERABLES Final Result Performing Organization Address [facility] Phone Number INTERFACE SYSTEM Refer to clinic/hospital department * HEMOGLOBIN A1C (05/06/2007 5:40 PM DIRECTOR INVESTMENT BANKING) HEMOGLOBIN A1C 6.1 4.1 - 6.1 % of Hgb INTERFACE SYSTEM GLUCOSE, MEAN BLOOD 140 mg/dL INTERFACE SYSTEM 05/06/2007 5:40 PM DIRECTOR INVESTMENT BANKING Octaviano Laughlin MD CHEMISTRY ORDERABLES Final Result Performing Organization Address [facility] Phone [facility] INTERFACE SYSTEM Refer to clinic/hospital department * (ABNORMAL) URINALYSIS WITH MICROSCOPIC (05/06/2007 3:15 PM DIRECTOR INVESTMENT BANKING) COLOR UA Pale Yellow INTERFAC E SYSTEM [...] 2-5 /HPF INTERFACE SYSTEM 05/06/2007 3:15 PM DIRECTOR INVESTMENT BANKING Jony Lawrence Jr., MD URINE ORDERABLES Final Res ult Performing Organization Address [facility] Phone Number INTERFACE SYSTEM Refer to clinic/hospital department * CT HEAD WO CONTRAST (05/06/2007 11:48 AM DIRECTOR INVESTMENT BANKING) Anatomical Region Laterality Modality Head Other 05/06/2007 11:4 8 AM DIRECTOR INVESTMENT BANKING Narrative 05/06/2007 5:12 PM DIRECTOR INVESTMENT BANKING [place] [address] [place], [place] [address] Admit Date: 05/06/2007 [place] Sex: F Admit Prov: OCTAVIANO LAUGHLIN Date: 1950 Primary Care Prov: PCP , NONE CMRN: [id number] Room: [address] [place] [address] 2 SSN: [id number] IMAGING SERVICES Ordering Prov: N/A Accession Number: [id number] Interpretation CT SCAN OF HEAD, NONCONTRAST, 05/06/2007 History: Tingling sensation, headache, neck and left arm pain. Findings: Punctate calcification is identified in the right globus pallidus. The ventricular system is midline without shift, dilatation or mass effect. Atherosclerotic calcification is noted in the left internal carotid artery. No intracranial mass, hemorrhage or infarct is seen. There is normal mchugh-white matter differentiation. Calvarium is normal. Paranasal sinuses and mastoid air cells are clear. Impression: Minimal atherosclerotic calcification in left internal carotid artery. Otherwise negative exam. Report was called to Dr. Lawrence in the emergency department. . Dictated by: DAYANA BROOKS 05/06/2007 12:15 Electronically signed by: DAYANA BROOKS 05/06/2007 17:12 Transcribed: 05/06/2007 12:28 DKT Procedure Note Provider, Historical - 05/06/2007 [place] [address] [place], [place] [address] Admit Date: 05/06/2007 [place] Sex: F Admit Prov: OCTAVIANO LAUGHLIN Date: 1950 Primary Care Prov: PCP , NONE CMRN: [id number] Room: [address] [place] [address] 2 SSN: [id number] IMAGING SERVICES Ordering Prov: N/A Interpretation CT [...] CHEST PA AND LATERAL (05/06/2007 11:45 AM DIRECTOR INVESTMENT BANKING) Anatomical Region Laterality Modality Chest Other 05/06/2007 11:4 5 AM DIRECTOR INVESTMENT BANKING Narrative 05/06/2007 12:37 PM DIRECTOR INVESTMENT BANKING [address] [address] Admit Date: 05/06/2007 [place] A Sex: F Admit Prov: MANAV NORRIS Date: 1950 Primary Care Prov: CMRN: [id number] Room: [facility] SSN: [id number] IMAGING SERVICES Ordering Prov: N/A Accession Number: [id number] Interpretation PA and lateral chest x-ray. History: Chest pain. Findings: Findings: The lung lua are clear and well aerated without significant infiltrate. There is no pneumothorax or pleural effusion. The heart size is normal. Impression: No acute disease. . Dictated by: MEL THOMAS 05/06/2007 12:37 Electronically signed by: MEL THOMAS 05/06/2007 12:37 Procedure Note Mel Thomas - 05/06/2007 [address] [place], [place] [address] Admit Date: 05/06/2007 [place], AUGUST A Sex: F Admit Prov: ER, AUTHORIZED P Date: 1950 Primary Care Prov: CMRN: [id number] Room: [facility] SSN: [id number] IMAGING SERVICES Ordering Prov: N/A Interpretation PA [...] * CBC WITH DIFFERENTIAL (05/06/2007 11:44 AM DIRECTOR INVESTMENT BANKING) NEUTROPHILS 67 45 - 70 % INTERFAC [...] K/uL INTERFACE SYSTEM 05/06/2007 11:4 4 AM DIRECTOR INVESTMENT BANKING Jony Lawrence Jr., MD HEMATOLOGY ORDERABLES Blanche l Result INTERFACE SYSTEM Refer to clinic/hospital department * (ABNORMAL) CBC WITH DIFFERENTIAL (05/06/2007 11:44 AM DIRECTOR INVESTMENT BANKING) WBC 9.0 4.0 - 9.8 K/uL INTERFACE [...] fL INTERFACE SYSTEM 05/06/2007 11:4 4 AM DIRECTOR INVESTMENT BANKING Jony Lawrence Jr., MD HEMATOLOGY ORDERABLES Blanche damir Result INTERFACE SYSTEM Refer to clinic/hospital department * (ABNORMAL) COMPREHENSIVE METABOLIC PANEL (05/06/2007 11:44 AM DIRECTOR INVESTMENT BANKING) GLUCOSE 104(H) 65 - 99 mg/dL INTERFACE [...] and non- Americans is available on the [facility] Intranet at: [email or web address] Select: Lab Policies and Procedures Select: Reference Ranges - GFR 05/06/2007 11:4 4 AM DIRECTOR INVESTMENT BANKING Jony Lawrence Jr., MD CHEMISTRY ORDERABLES Final Result Performing Organization Address [facility] de Phone Number INTERFACE SYSTEM Refer to clinic/hospital department * TROPONIN (W/REFLEX CKMB/CK) (05/06/2007 11:44 AM DIRECTOR INVESTMENT BANKING) TROPONIN T 0.01 <=0.03 ng/mL INTERFACE SYSTEM TROPONIN T INTERP Negative INTERFACE SYSTEM 05/06/2007 11:4 4 AM DIRECTOR INVESTMENT BANKING Jony Lawrence Jr., MD CHEMISTRY ORDERABLES Final Result Performing Organization Address [facility] Co de Phone Number INTERFACE SYSTEM Refer to clinic/hospital department documented in this encounter Visit Diagnoses Not on filedocumented in this encounter
--- OUTSIDE RECORDS SUMMARY | 2024-05-23 08:59 | XMS_ITS | Encounter Summary ---
Author Organization [facility] Address [address] [place] [address] Care Team Providers Care French Instructor Name Role Phone Unavailable Primary Care Provider Unavailabl e Encounter Details Date Type Department Care Team (Late st Contact Info) Description 05/07/2007 Outpatient Historical [facility] Supp Sv[facility] Blood Flow [address] [place] [address] Sanket Bradley MD [facility] [address] [place] [address] Social History Tobacco Use Types Packs/Day Years Used Date Smoking Tobacco: Never Assessed Comments Unknown Sex and Gender Information Value Date Recorded Sex Assigned at Not on file Legal Sex Female 3:37 AM PORTFOLIO DIRECTOR Gender Identity Not on file Sexual Orientation Not on file documented as of this encounter Plan of Treatment Not on file documented as of this encounter Visit Diagnoses Not on filedocumented in this encounter
--- OUTSIDE RECORDS SUMMARY | 2024-05-23 08:59 | XMS_ITS | Clinical Summary ---
Author Organization [facility] Address [address] Brownn: Epic Prelude ADT ISABEL [place] [address] Care Team Providers Care Program Management Intern Name Role Phone Unavailable Primary Care Provider Unavailabl e Social History Tobacco Use Types Packs/Day Years Used Date Smoking Tobacco: Never Assessed Comments Unknown Sex and Gender Information Value Date Recorded Sex Assigned at Not on file Legal Sex Female 3:37 AM MANAGER INTENSIVE CARE UNIT Gender Identity Not on file Sexual Orientation [...]
--- OUTSIDE RECORDS SUMMARY | 2024-05-23 08:59 | XMS_ITS | Encounter Summary ---
Author Organization [facility] Address [address] [place] [address] Care Team Providers Care City Engineer Name Role Phone Unavailable Primary Care Provider Unavailabl e Encounter Details Date Type Department Care Team (Late st Contact Info) Description 05/06/[address] [facility] Cardiology [address] [place] [address] Kuldip Sharif MD [address] [place] [address] Social History Tobacco Use Types Packs/Day Years Used Date Smoking Tobacco: Never Assessed Comments Unknown Sex and Gender Information Value Date Recorded Sex Assigned at Not on file Legal Sex Female 3:37 AM CORPORATE SCHEDULER Gender Identity Not on file Sexual Orientation Not on file documented as of this encounter Plan of Treatment Not on file documented as of this encounter Visit Diagnoses Not on filedocumented in this encounter
--- OUTSIDE RECORDS SUMMARY | 2024-05-23 08:59 | XMS_ITS | Encounter Summary ---
Author Organization [facility] Address [address] [place]n: Epic Prelude ADT [place] [address] Care Team Providers Care Inspector Timers Name Role Phone Unavailable Primary Care Provider Unavailabl e Encounter Details Date Type Department Care Team (Late st Contact Info) Description 09/11/1988 Outpatient Historical [facility] [address] [place] [address] Social History Tobacco Use Types Packs/Day Years Used Date Smoking Tobacco: Never Assessed Comments Unknown Sex and Gender Information Value Date Recorded Sex Assigned at Not on file Legal Sex Female 3:37 AM RANGE OPERATOR Gender Identity Not on file Sexual Orientation Not on file documented as of this encounter Plan of Treatment Not on file documented as of this encounter Visit Diagnoses Not on filedocumented in this encounter
== END 2024-05-23 08:40 | disposition home or self-care (01) ==
PROVIDERS: PCP Internal Medicine; Visit Provider Internal Medicine Cardiovascular Disease
DX: R93.1 Abnormal findings on diagnostic imaging of heart and coronary circulation (principal); I48.0 Paroxysmal atrial fibrillation
CPT/HCPCS: 78452; 93017; 93306; A9502; J2785

== ENCOUNTER 2024-08-05 18:19 | Outpatient (RCR) | payer MEDICARE, SELFPAY ==
[2024-05-10 14:49] LABS: INR 3.6; Prothrombin Time 34.9 Seconds (9.50-12.1)
[2024-05-19 15:00] LABS: INR 2.2; Prothrombin Time 22.4 Seconds (9.50-12.1)
[2024-06-04 17:27] LABS: INR 2.3; Prothrombin Time 23.9 Seconds (9.50-12.1)
[2024-07-04 17:02] LABS: INR 2.7; Prothrombin Time 27.2 Seconds (9.50-12.1)
[2024-07-23 19:56] LABS: INR 1.4; Prothrombin Time 15.4 Seconds (9.50-12.1)
[2024-08-05 18:49] LABS: INR 1.7; Prothrombin Time 17.7 Seconds (9.50-12.1)
== END 2024-08-08 23:59 | disposition home or self-care (01) ==
LOC: CHSLAB 18:19
PROVIDERS: PCP Internal Medicine; Visit Provider Internal Medicine Cardiovascular Disease
DX: I48.0 Paroxysmal atrial fibrillation (principal)
CPT/HCPCS: 36415; 85610

== ENCOUNTER 2024-10-07 17:12 | Outpatient (CLI) | payer MEDICARE, SELFPAY ==
--- OUTSIDE RECORDS SUMMARY | 2024-10-07 17:16 | XMS_ITS | Encounter Summary ---
Author Organization [facility] Address [address] [place] [address] Care Team Providers Care Double Spindle Shaper Operator Name Role Phone Unavailable Primary Care Provider Unavailabl e Encounter Details Date Type Department Care Team (Late st Contact Info) Description 05/07/2007 Outpatient Historical [facility] Cardiology 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
--- OUTSIDE RECORDS SUMMARY | 2024-10-07 17:16 | XMS_ITS | Encounter Summary ---
Author Organization [facility] Address [address] [place] [address] Care Team Providers Care African History Professor Name Role Phone Unavailable Primary Care Provider Unavailabl e Encounter Details Date Type Department Care Team (Late st Contact Info) Description 05/07/2007 Outpatient Historical [facility] Supp Svcs Blood Flow [address] [place] [address] Sanket Bradley MD [facility] [address] [place] [address] Social History Tobacco Use Types Packs/Day Years Used Date Smoking Tobacco: Never Assessed Comments Unknown Sex and Gender Information Value Date Recorded Sex Assigned at Not on file Legal Sex Female 3:37 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
--- OUTSIDE RECORDS SUMMARY | 2024-10-07 17:16 | XMS_ITS | Encounter Summary ---
Author Organization [employer] Address [address] 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
--- OUTSIDE RECORDS SUMMARY | 2024-10-07 17:16 | XMS_ITS | Encounter Summary ---
Author Organization [facility] Address [address] [place] [address] Care Team Providers Care Sous Chef Kitchen Manager Name Role Phone Unavailable Primary Care Provider Unavailabl e Encounter Details Date Type Department Care Team (Late st Contact Info) Description 05/06/2007 Outpatient Historical [facility] Cardiology 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
--- OUTSIDE RECORDS SUMMARY | 2024-10-07 17:16 | XMS_ITS | Clinical Summary ---
Author Organization [employer] Address [address] Brownn: Epic Prelude ADT ISABEL COLLINSMARCELO [address] Care Team Providers Care Casket Inspector Name Role Phone Unavailable Primary Care Provider Unavailabl e Social History Tobacco Use Types Packs/Day Years Used Date Smoking Tobacco: Never Assessed Comments Unknown Sex and Gender Information Value Date Recorded Sex Assigned at Not on file Legal Sex Female 3:37 AM MEAT HOSTESS Gender Identity Not on file Sexual Orientation [...] 2002 OSTEOPOROSIS SCREENING 2017 INFLUENZA VACCINE (#1) 2024 RSV VACCINE (60+ or ) (1 - 1-dose 75+ series) 08/01/2027
--- OUTSIDE RECORDS SUMMARY | 2024-10-07 17:16 | XMS_ITS | Encounter Summary ---
Author Organization [employer] Address [address] [place] [address] Care Team Providers Care Club Lounge Attendant Name Role Phone Unavailable Primary Care Provider Unavailabl e Encounter Details Date Type Department Care Team (Late st Contact Info) Description 05/06/2007 Outpatient Historical [facility] [place], Authorized P [place] [id number] [address] [place] [address] Social History Tobacco Use Types Packs/Day Years Used Date Smoking Tobacco: Never Assessed Comments Unknown Sex and Gender Information Value Date Recorded Sex Assigned at Not on file Legal Sex Female 3:37 AM HYDROELECTRIC MACHINERY MECHANIC Gender Identity Not on file Sexual Orientation Not on file documented as of this encounter Plan of Treatment Not on file documented as of this encounter Procedures Procedure Name Priority Date/Time Associated Diagnosis Comments ECHO COMPLETE Routine 05/08/2007 7:00 AM HYDROELECTRIC MACHINERY MECHANIC MRI BRAIN W WO CONTRAST Routine 05/07/19 08 8:42 PM HYDROELECTRIC MACHINERY MECHANIC NM PHARMACOLOGICAL STRESS TEST Routine 05/07/2007 5:30 PM HYDROELECTRIC MACHINERY MECHANIC NM MYOCARDIAL PERFUSION EF Routine 05/07/2007 8:30 AM HYDROELECTRIC MACHINERY MECHANIC GLUCOSE LEVEL Routine 05/07/2007 5:35 AM HYDROELECTRIC MACHINERY MECHANIC LIPID PANEL Routine 05/07/2007 5:35 AM HYDROELECTRIC MACHINERY MECHANIC PROTEIN ELECTROPHORESIS W/REFLEX,SERUM Routine 05/06/2007 5:40 PM HYDROELECTRIC MACHINERY MECHANIC PROTEIN TOTAL Routine 05/06/2007 5:40 PM HYDROELECTRIC MACHINERY MECHANIC HEMOGLOBIN A1C Routine 05/06/2007 5:40 PM HYDROELECTRIC MACHINERY MECHANIC URINALYSIS WITH MICROSCOPIC Routine 05/06/2007 3:15 PM HYDROELECTRIC MACHINERY MECHANIC CT HEAD WO CONTRAST Routine 05/06/2007 1 1:48 AM HYDROELECTRIC MACHINERY MECHANIC XR CHEST PA AND LATERAL 2 VW Routine 05/06/2007 11:45 AM HYDROELECTRIC MACHINERY MECHANIC TROPONIN (W/REFLEX CKMB/CK) Routine 05/06/2007 11:44 AM HYDROELECTRIC MACHINERY MECHANIC CBC WITH DIFFERENTIAL Routine 05/06/2007 11:44 AM HYDROELECTRIC MACHINERY MECHANIC CBC WITH DIFFERENTIAL Routine 05/06/2007 11:44 AM HYDROELECTRIC MACHINERY MECHANIC COMPREHENSIVE METABOLIC PANEL Routine 05/06/2007 11:44 AM HYDROELECTRIC MACHINERY MECHANIC documented in this encounter Results * ECHOCARDIOGRAM COMPLETE (05/08/2007 7:00 AM HYDROELECTRIC MACHINERY MECHANIC) Narrative INTERFACE SYSTEM - 05/08/2007 7:00 AM HYDROELECTRIC [place] [address] [email or web address] [email or web address] Echocardiogram Patient: August Vasquez Study ID: [...] - 05/08/2007 [facility] [address] [place], [place] [address]Lmhju: [email or web address] [email or web address] Echocardiogram Patient: August Pedro Study ID: [...] BRAIN W WO CONTRAST (05/07/2007 8:42 PM HYDROELECTRIC MACHINERY MECHANIC) Anatomical Region Laterality Modality Head Other 05/07/2007 8:42 PM HYDROELECTRIC MACHINERY MECHANIC Narrative 05/08/2007 11:26 AM HYDROELECTRIC MACHINERY MECHANIC [facility] [address] [place], [place] [address] Admit Date: 05/06/2007August A Sex: F Admit Prov: OCTAVIANO LAUGHLIN Date: 1950 Primary Care Prov: PCP , NONE CMRN: [id number] [facility] [address] [place] [address] IMAGING SERVICES Ordering Prov: N/A Accession Number: [id number] Interpretation MRI BRAIN WITH AND WITHOUT IV [...] etc. 2. Normal variant MRA with complete platinum of [place]árden[place]. . Dictated by: ALDO AVILA 05/08/2007 07:42 Electronically signed by: ALDO AVILA 05/08/2007 11:26 Transcribed: 05/08/2007 11:23 MD Procedure Note Provider, Historical - 05/08/2007 [facility] [address] [place], [place] [address] Admit Date: 05/06/2007, AUGUST A Sex: F Admit Prov: OCTAVIANO LAUGHLIN Date: 1950 Primary Care Prov: PCP , NONE CMRN: [id number] Room: [facility] SSN: [id number] IMAGING SERVICES Ordering Prov: N/A Interpretation MRI [...] etc. 2. Normal variant MRA with complete platinum of Cárden[place]. . Dictated by: ALDO AVILA 05/08/2007 07:42 Electronically signed by: ALDO AVILA 05/08/2007 11:26 Transcribed: 05/08/2007 11:23 Octaviano Laughlin MD MR ORDERABLES Final Resu lt * NM PHARMACOLOGICAL STRESS TEST (05/07/2007 5:30 PM HYDROELECTRIC MACHINERY MECHANIC) Narrative INTERFACE SYSTEM - 05/07/2007 5:30 PM HYDROELECTRIC MACHINERY MECHANIC [facility] [address] [place] [address] [email or web address] Noninvasive Vascular Lab Carotid Duplex Study Patient: August Vasquez Study ID: BLOOD FLOW STUDY Gender: F : 1950 Age: 56 years Race: 1 Room: Bed: Height: Study Date: May 07, 2007 Patient status: Outpatient Weight: Access. #: [id number] POC: Climatology Teacher: Pawel Ordering: Octaviano Luque Attending MD: Octaviano [...] 17:29:09 Procedure Note Provider, Historical - 06/04/2007 [place] [address] [place], [place] [address]Wmeoe: [email or web address] Noninvasive Vascular Lab Carotid Duplex Study Patient: August Vasquez Study ID: BLOOD FLOW STUDY Gender: F : 1950 Age: 56 years Race: 1 Room: Bed: Height: Study Date: May 07, 2007 Patient status: Outpatient Weight: Access. #: [id number] POC: Climatology Teacher: Pawel Ordering: Octaviano Luque Attending MD: Octaviano [...] NM MYOCARDIAL PERFUSION EF (05/07/2007 8:30 AM HYDROELECTRIC MACHINERY MECHANIC) 05/07/2007 8:30 AM HYDROELECTRIC MACHINERY MECHANIC Narrative INTERFACE SYSTEM - 05/07/2007 10:42 AM HYDROELECTRIC MACHINERY MECHANIC Ordered by System System [facility] [address] [place], [place] [address] Admit Date: 05/06/2007August Sex: F Admit Prov: OCTAVIANO LAUGHLIN Date: 1950 Primary Care Prov: PCP , NONE CMRN: [id number] Room: [address] [place] [address] SSN: [id number] IMAGING SERVICES Ordering Prov: N/A Accession Number: [id number] Interpretation Myocardial perfusion imaging, multiple SPECT with [...] Richardson - 05/07/2007 Ordered by System System [facility] [address] [place], [place] [address] Admit Date: 05/06/2007 [place]ASQUE[place]August Sex: F Admit Prov: OCTAVIANO LAUGHLIN Date: 1950 Primary Care Prov: PCP , NONE CMRN: [id number] Room: [address] [place] [address] SSN: [id number] IMAGING SERVICES Ordering Prov: N/A Interpretation Myocardial [...] are available on the hospital PACS system Segment. Impression: 1. Probably normal pharmacologic stress myocardial [...] NM ORDERABLES Final Result Performing Organization Address City/[facility] Co de Phone Number INTERFACE SYSTEM Refer to clinic/hospital department * (ABNORMAL) GLUCOSE LEVEL (05/07/2007 5:35 AM HYDROELECTRIC MACHINERY MECHANIC) GLUCOSE 105(H) 65 - 99 mg/dL INTERFACE SYSTEM 05/07/2007 5:35 AM HYDROELECTRIC MACHINERY MECHANIC Octaviano Laughlin MD CHEMISTRY ORDERABLES Final Result Performing Organization Address City/[facility]/ZIP Co de Phone Number INTERFACE SYSTEM Refer to clinic/hospital department * (ABNORMAL) LIPID PANEL (05/07/2007 5:35 AM HYDROELECTRIC MACHINERY MECHANIC) CHOLESTEROL 203(H) 100 - 199 mg/dL INTERFACE SYSTEM TRIGLYCERIDE 102 10 - 149 mg/dL INTERFACE SYSTEM HDL 41 40 - 59 mg/dL INTERFACE SYSTEM CHOL/HDL RATIO 5.0 2.0 - 5.0 INTER FACE SYSTEM LDL CALCULATED 142(H) <=99 mg/dL INTERFACE SYSTEM LIPID PANEL COMMENT See Below INTERFACE SYSTEM Comment: The adult ATP and pediatric NCEP classifications for lipids are available on the [facility] Intranet at: [email or web address] developmental [email or web address].M. Good Media Limitedstephens county hospitalet/[email or web address] Select: Lab Policies and Procedures,Current Select: Lipid Panel Interpretation 05/07/2007 5:35 AM HYDROELECTRIC MACHINERY MECHANIC Octaviano Laughlin MD CHEMISTRY ORDERABLES Final Result Performing Organization Address [facility] Phone Number INTERFACE SYSTEM Refer to clinic/hospital department * (ABNORMAL) PROTEIN ELECTROPHORESIS, SERUM (05/06/2007 5:40 PM HYDROELECTRIC MACHINERY MECHANIC) PROTEIN TOTAL, SPE 7.2 6.0 - 8.3 [...] Koroma MD INTERFACE SYSTEM 05/06/2007 5:40 PM HYDROELECTRIC MACHINERY MECHANIC Octaviano Laughlin MD CHEMISTRY ORDERABLES Final Result Performing Organization Address [facility] de Phone Number INTERFACE SYSTEM Refer to clinic/hospital department * PROTEIN TOTAL (05/06/2007 5:40 PM HYDROELECTRIC MACHINERY MECHANIC) TOTAL PROTEIN 7.2 6.3 - 8.6 g/dL INTERFACE SYSTEM 05/06/2007 5:40 PM HYDROELECTRIC MACHINERY MECHANIC Octaviano Laughlin MD CHEMISTRY ORDERABLES Final Result Performing Organization Address [facility] Phone Number INTERFACE SYSTEM Refer to clinic/hospital department * HEMOGLOBIN A1C (05/06/2007 5:40 PM HYDROELECTRIC MACHINERY MECHANIC) HEMOGLOBIN A1C 6.1 4.1 - 6.1 % of Hgb INTERFACE SYSTEM GLUCOSE, MEAN BLOOD 140 mg/dL INTERFACE SYSTEM 05/06/2007 5:40 PM HYDROELECTRIC MACHINERY MECHANIC Octaviano Laughlin MD CHEMISTRY ORDERABLES Final Result Performing Organization Address [facility] Phone [facility] INTERFACE SYSTEM Refer to clinic/hospital department * (ABNORMAL) URINALYSIS WITH MICROSCOPIC (05/06/2007 3:15 PM HYDROELECTRIC MACHINERY MECHANIC) COLOR UA Pale Yellow INTERFAC E SYSTEM [...] 2-5 /HPF INTERFACE SYSTEM 05/06/2007 3:15 PM HYDROELECTRIC MACHINERY MECHANIC Jony Lawrence Jr., MD URINE ORDERABLES Final Res ult Performing Organization Address [facility] Phone Number INTERFACE SYSTEM Refer to clinic/hospital department * CT HEAD WO CONTRAST (05/06/2007 11:48 AM HYDROELECTRIC MACHINERY MECHANIC) Anatomical Region Laterality Modality Head Other 05/06/2007 11:4 8 AM HYDROELECTRIC MACHINERY MECHANIC Narrative 05/06/2007 5:12 PM HYDROELECTRIC MACHINERY MECHANIC [place] [address] [place], [place] [address] Admit Date: 05/06/2007 [place] Sex: F Admit Prov: OCTAVIANO LAUGHLIN Date: 1950 Primary Care Prov: PCP , NONE CMRN: [id number] Room: [address] [place] [address] 2 SSN: [id number] IMAGING SERVICES Ordering Prov: N/A Accession Number: [id number] Interpretation CT SCAN OF HEAD, NONCONTRAST, 05/06/2007 [...] DKT Procedure Note Provider, Historical - 05/06/2007 [place] [address] [place], [place] [address] Admit Date: 05/06/2007 [place] Sex: F Admit Prov: OCTAVIANO LAUGHLIN Date: 1950 Primary Care Prov: PCP , NONE CMRN: [id number] Room: [address] [place] [address] 2 SSN: [id number] IMAGING SERVICES Ordering Prov: N/A Interpretation CT [...] CHEST PA AND LATERAL (05/06/2007 11:45 AM HYDROELECTRIC MACHINERY MECHANIC) Anatomical Region Laterality Modality Chest Other 05/06/2007 11:4 5 AM HYDROELECTRIC MACHINERY MECHANIC Narrative 05/06/2007 12:37 PM HYDROELECTRIC MACHINERY MECHANIC [address] [address] Admit Date: 05/06/2007 [place] A Sex: F Admit Prov: MANAV NORRIS Date: 1950 Primary Care Prov: CMRN: [id number] Room: [facility] SSN: [id number] IMAGING SERVICES Ordering Prov: N/A Accession Number: [id number] Interpretation PA and lateral chest x-ray. History: Chest pain. Findings: Findings: The lung lua are clear and well aerated without significant infiltrate. There is no pneumothorax or pleural effusion. The heart size is normal. Impression: No acute disease. . Dictated by: MEL THOMAS 05/06/2007 12:37 Electronically signed by: MEL THOMAS 05/06/2007 12:37 Procedure Note Mel Thomas - 05/06/2007 [place] [address] [address] [place], [place] [address] Admit Date: 05/06/2007 [place], AUGUST A Sex: F Admit Prov: ER, AUTHORIZED P Date: 1950 Primary Care Prov: CMRN: [id number] Room: [facility] SSN: [id number] IMAGING SERVICES Ordering Prov: N/A Interpretation PA [...] * CBC WITH DIFFERENTIAL (05/06/2007 11:44 AM HYDROELECTRIC MACHINERY MECHANIC) NEUTROPHILS 67 45 - 70 % INTERFAC [...] K/uL INTERFACE SYSTEM 05/06/2007 11:4 4 AM HYDROELECTRIC MACHINERY MECHANIC Jony Lawrence Jr., MD HEMATOLOGY ORDERABLES Blanche l Result INTERFACE SYSTEM Refer to clinic/hospital department * (ABNORMAL) CBC WITH DIFFERENTIAL (05/06/2007 11:44 AM HYDROELECTRIC MACHINERY MECHANIC) WBC 9.0 4.0 - 9.8 K/uL INTERFACE [...] fL INTERFACE SYSTEM 05/06/2007 11:4 4 AM HYDROELECTRIC MACHINERY MECHANIC Jony Lawrence Jr., MD HEMATOLOGY ORDERABLES Blanche damir Result INTERFACE SYSTEM Refer to clinic/hospital department * (ABNORMAL) COMPREHENSIVE METABOLIC PANEL (05/06/2007 11:44 AM HYDROELECTRIC MACHINERY MECHANIC) GLUCOSE 104(H) 65 - 99 mg/dL INTERFACE [...] and non- Americans is available on the [facility] Intranet at: [email or web address] [email or web address] system [email or web address] Select: Lab Policies and Procedures Select: Reference Ranges - GFR 05/06/2007 11:4 4 AM HYDROELECTRIC MACHINERY MECHANIC Jony Lawrence Jr., MD CHEMISTRY ORDERABLES Final Result Performing Organization Address City/[facility] de Phone Number INTERFACE SYSTEM Refer to clinic/hospital department * TROPONIN (W/REFLEX CKMB/CK) (05/06/2007 11:44 AM HYDROELECTRIC MACHINERY MECHANIC) TROPONIN T 0.01 <=0.03 ng/mL INTERFACE SYSTEM TROPONIN T INTERP Negative INTERFACE SYSTEM 05/06/2007 11:4 4 AM HYDROELECTRIC MACHINERY MECHANIC Jony Lawrence Jr., MD CHEMISTRY ORDERABLES Final Result Performing Organization Address City/[facility] Co de Phone Number INTERFACE SYSTEM Refer to clinic/hospital department documented in this encounter Visit Diagnoses Not on filedocumented in this encounter
[2024-10-07 17:28] LABS: Hematocrit 39.4 % (35.0-42.0); Hemoglobin 12.6 g/dL (11.7-13.8); Mean Corpuscular HGB Conc 32.0 g/dL (32-36); Mean Corpuscular Hemoglobin 31.0 pg (27.0-31.0); Mean Corpuscular Volume 97.0 fL (78.0-102.0); Platelet Count Result 213 K/mm3 (150-420); Red Blood Count 4.06 M/mm3 (4.20-5.40); White Blood Count 7.4 K/mm3 (4.8-10.8)
[2024-10-07 17:29] LABS: Add Urine Microscopic? YES; Appearance Urine Clear (Clear); Glucose Urine UA Negative (Negative); Leukocyte Esterase Ur Trace (Negative); Nitrate Urine Negative (Negative); Specific Grav Ur 1.010 (1.010-1.020)
[2024-10-07 17:42] LABS: INR 1.7; Prothrombin Time 17.7 Seconds (9.50-12.1)
[2024-10-07 17:57] LABS: Alanine Aminotransferase 18 U/L (6-35); Albumin Level 4.4 g/dL (3.5-5.1); Alkaline Phosphatase 78 U/L (38-126); Anion Gap 3 mmol/L (4-12); Aspartate Amino Transferase 26 U/L (14-36); Bilirubin,Total 0.6 mg/dL (0.2-1.3); Blood Urea Nitrogen 25 mg/dL (7-17); Calcium 9.6 mg/dL (8.4-10.2); Carbon Dioxide 28 mmol/L (22-30); Chloride 106 mmol/L (98-107); Cholesterol 262 mg/dL (0-200); Estimated Glomerular Filt Rate 55; Glucose 94 mg/dL (65-110); HDL Direct 45 mg/dL; Osmolality Calculated 288 mOsm/kg (285-295); Potassium 4.2 mmol/L (3.4-5.0); Sodium 137 mmol/L (137-145); Total Protein 7.7 g/dL (6.3-8.2); Triglycerides 203 mg/dL (<150)
[2024-10-07 18:27] LABS: Thyroid Stimulating Hormone 2.760 uIU/mL (0.465-4.680)
== END 2024-10-07 17:13 | disposition home or self-care (01) ==
PROVIDERS: PCP Internal Medicine; Visit Provider Internal Medicine Cardiovascular Disease
DX: I48.0 Paroxysmal atrial fibrillation (principal); I10 Essential (primary) hypertension; I48.91 Unspecified atrial fibrillation; J45.909 Unspecified asthma, uncomplicated; E03.9 Hypothyroidism, unspecified
CPT/HCPCS: 36415; 80053; 80061; 81001; 84443; 85027; 85610

== ENCOUNTER 2024-10-11 15:06 | Outpatient (CLI) | payer MEDICARE, SELFPAY ==
--- NOTE | ~2024-10-11 | XR_ITS ---
3 VIEWS PARANASAL SINUSES Ordering provider: Bright Manzo MD History: . Chronic Sinusitis . Comparison: None. FINDINGS: BONES: No acute fracture as visualized. PARANASAL SINUSES: Opacification the right maxillary sinus. Otherwise, Well aerated. No air fluid lev els. SOFT TISSUES: Normal. IMPRESSION: RIGHT MAXILLARY SINUS DISEASE.. Reviewed, dictated and finalized at location A.
--- OUTSIDE RECORDS SUMMARY | 2024-10-11 15:09 | XMS_ITS | Encounter Summary ---
Author Organization [facility] Address [address] [place] [address] Care Team Providers Care Hydroelectric Station Operator Name Role Phone Unavailable Primary Care Provider Unavailabl e Encounter Details Date Type Department Care Team (Late st Contact Info) Description 05/07/2007 Outpatient Historical [facility] Cardiology [address] [place] [address] Jony Guzman MD NO ADDRESS ON FILE Social History Tobacco Use Types Packs/Day Years Used Date Smoking Tobacco: Never Assessed Comments Unknown Sex and Gender Information Value Date Recorded Sex Assigned at Not on file Legal Sex Female 3:37 AM LEASING COORDINATOR Gender Identity Not on file Sexual Orientation Not on file documented as of this encounter Plan of Treatment Not on file documented as of this encounter Visit Diagnoses Not on filedocumented in this encounter
--- OUTSIDE RECORDS SUMMARY | 2024-10-11 15:09 | XMS_ITS | Clinical Summary ---
Author Organization [employer] Address [address]: Epic Prelude ADT ISABEL COLLINSMARCELO [address] Care Team Providers Care Electronic Court Recorder Name Role Phone Unavailable Primary Care Provider Unavailabl e Social History Tobacco Use Types Packs/Day Years Used Date Smoking Tobacco: Never Assessed Comments Unknown Sex and Gender Information Value Date Recorded Sex Assigned at Not on file Legal Sex Female 3:37 AM DESULFURIZER HAND Gender Identity Not on file Sexual Orientation [...]
--- OUTSIDE RECORDS SUMMARY | 2024-10-11 15:09 | XMS_ITS | Encounter Summary ---
Author Organization [employer] Address [address] 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
--- OUTSIDE RECORDS SUMMARY | 2024-10-11 15:09 | XMS_ITS | Encounter Summary ---
Author Organization [employer] Address [address] [place] [address] Care Team Providers Care Director Facilities Maintenance Name Role Phone Unavailable Primary Care Provider Unavailabl e Encounter Details Date Type Department Care Team (Late st Contact Info) Description 05/06/2007 Outpatient Historical [facility] [place], Authorized P [place] [address] [place] [address] Social History Tobacco Use Types Packs/Day Years Used Date Smoking Tobacco: Never Assessed Comments Unknown Sex and Gender Information Value Date Recorded Sex Assigned at Not on file Legal Sex Female 3:37 AM SENIOR PROGRAM ANALYST Gender Identity Not on file Sexual Orientation Not on file documented as of this encounter Plan of Treatment Not on file documented as of this encounter Procedures Procedure Name Priority Date/Time Associated Diagnosis Comments ECHO COMPLETE Routine 05/08/2007 7:00 AM SENIOR PROGRAM ANALYST MRI BRAIN W WO CONTRAST Routine 05/07/19 08 8:42 PM SENIOR PROGRAM ANALYST NM PHARMACOLOGICAL STRESS TEST Routine 05/07/2007 5:30 PM SENIOR PROGRAM ANALYST NM MYOCARDIAL PERFUSION EF Routine 05/07/2007 8:30 AM SENIOR PROGRAM ANALYST GLUCOSE LEVEL Routine 05/07/2007 5:35 AM SENIOR PROGRAM ANALYST LIPID PANEL Routine 05/07/2007 5:35 AM SENIOR PROGRAM ANALYST PROTEIN ELECTROPHORESIS W/REFLEX,SERUM Routine 05/06/2007 5:40 PM SENIOR PROGRAM ANALYST PROTEIN TOTAL Routine 05/06/2007 5:40 PM SENIOR PROGRAM ANALYST HEMOGLOBIN A1C Routine 05/06/2007 5:40 PM SENIOR PROGRAM ANALYST URINALYSIS WITH MICROSCOPIC Routine 05/06/2007 3:15 [address] HEAD WO CONTRAST Routine 05/06/2007 1 1:48 AM SENIOR PROGRAM ANALYST XR CHEST PA AND LATERAL 2 VW Routine 05/06/2007 11:45 AM SENIOR PROGRAM ANALYST TROPONIN (W/REFLEX CKMB/CK) Routine 05/06/2007 11:44 AM SENIOR PROGRAM ANALYST CBC WITH DIFFERENTIAL Routine 05/06/2007 11:44 AM SENIOR PROGRAM ANALYST CBC WITH DIFFERENTIAL Routine 05/06/2007 11:44 AM SENIOR PROGRAM ANALYST COMPREHENSIVE METABOLIC PANEL Routine 05/06/2007 11:44 AM SENIOR PROGRAM ANALYST documented in this encounter Results * ECHOCARDIOGRAM COMPLETE (05/08/2007 7:00 AM SENIOR PROGRAM ANALYST) Narrative INTERFACE SYSTEM - 05/08/2007 7:00 [place] [address] [email or web address] Transthoracic Echocardiogram Patient: August Vasquez Study ID: [...] 17:41:32 Procedure Note Provider, Historical - 05/08/2007 [facility] [address] [place], [place] [address]Qnolu: [email or web address] Transthoracic Echocardiogram Patient: August Pedro Study ID: [...] BRAIN W WO CONTRAST (05/07/2007 8:42 PM SENIOR PROGRAM ANALYST) Anatomical Region Laterality Modality Head Other 05/07/2007 8:42 PM SENIOR PROGRAM ANALYST Narrative 05/08/2007 11:26 AM SENIOR PROGRAM ANALYST [facility] [address] [place], [place] [address] Admit Date: 05/06/2007August A Sex: F Admit Prov: OCTAVIANO LAUGHLIN Date: 1950 Primary Care Prov: PCP , NONE CMRN: [id number] [facility] [address] [place] [address] IMAGING SERVICES Ordering Prov: N/A Accession Number: [id number] Interpretation MRI BRAIN WITH AND WITHOUT IV [...] etc. 2. Normal variant MRA with complete [place]. . Dictated by: ALDO AVILA 05/08/2007 07:42 Electronically signed by: ALDO AVILA 05/08/2007 11:26 Transcribed: 05/08/2007 11:23 MD Procedure Note Provider, Historical - 05/08/2007 [facility] [address] [place], [place] [address] Admit Date: 05/06/2007, AUGUST A Sex: F Admit Prov: OCTAVIANO LAUGHLIN Date: 1950 Primary Care Prov: PCP , NONE CMRN: [id number] Room: [facility] SSN: [id number] IMAGING SERVICES Ordering Prov: N/A Interpretation MRI [...] etc. 2. Normal variant MRA with complete [place]. . Dictated by: ALDO AVILA 05/08/2007 07:42 Electronically signed by: ALDO AVILA 05/08/2007 11:26 Transcribed: 05/08/2007 11:23 Octaviano Laughlin MD MR ORDERABLES Final Resu lt * NM PHARMACOLOGICAL STRESS TEST (05/07/2007 5:30 PM SENIOR PROGRAM ANALYST) Narrative INTERFACE SYSTEM - 05/07/2007 5:30 PM SENIOR PROGRAM ANALYST [facility] [address] [place] [address] [email or web address] Noninvasive Vascular Lab Carotid Duplex Study Patient: August Vasquez Study ID: BLOOD FLOW STUDY Gender: F : 1950 Age: 56 years Race: 1 Room: Bed: Height: Study Date: May 07, 2007 Patient status: Outpatient Weight: Access. #: [id number] POC: Fiscal Assistant: Pawel Ordering: Octaviano Luque Attending MD: Octaviano [...] 17:29:09 Procedure Note Provider, Historical - 06/04/2007 [place] [address] [place], [place] [address]Ifawv: [email or web address] Noninvasive Vascular Lab Carotid Duplex Study Patient: August Vasquez Study ID: BLOOD FLOW STUDY Gender: F : 1950 Age: 56 years Race: 1 Room: Bed: Height: Study Date: May 07, 2007 Patient status: Outpatient Weight: Access. #: [id number] POC: Fiscal Assistant: Pawel Ordering: Octaviano Luque Attending MD: Octaviano [...] NM MYOCARDIAL PERFUSION EF (05/07/2007 8:30 AM SENIOR PROGRAM ANALYST) 05/07/2007 8:30 AM SENIOR PROGRAM ANALYST Narrative INTERFACE SYSTEM - 05/07/2007 10:42 AM SENIOR PROGRAM ANALYST Ordered by System System [facility] [address] [place], [place] [address] Admit Date: 05/06/2007August Sex: F Admit Prov: OCTAVIANO LAUGHLIN Date: 1950 Primary Care Prov: PCP , NONE CMRN: [id number] Room: [address] [place] [address] SSN: [id number] IMAGING SERVICES Ordering Prov: N/A Accession Number: [id number] Interpretation Myocardial perfusion imaging, multiple SPECT with [...] Richardson - 05/07/2007 Ordered by System System [facility] [address] [place], [place] [address] Admit Date: 05/06/2007 VASQUEZAugust Sex: F Admit Prov: OCTAVIANO LAUGHLIN Date: 1950 Primary Care Prov: PCP , NONE CMRN: [id number] Room: [address] [place] [address] SSN: [id number] IMAGING SERVICES Ordering Prov: N/A Interpretation Myocardial [...] are available on the hospital PACS system [email or web address]. Impression: 1. Probably normal pharmacologic stress myocardial [...] NM ORDERABLES Final Result Performing Organization Address City/[facility] Co de Phone Number INTERFACE SYSTEM Refer to clinic/hospital department * (ABNORMAL) GLUCOSE LEVEL (05/07/2007 5:35 AM SENIOR PROGRAM ANALYST) GLUCOSE 105(H) 65 - 99 mg/dL INTERFACE SYSTEM 05/07/2007 5:35 AM SENIOR PROGRAM ANALYST Octaviano Laughlin MD CHEMISTRY ORDERABLES Final Result Performing Organization Address City/[facility]/ZIP Co de Phone Number INTERFACE SYSTEM Refer to clinic/hospital department * (ABNORMAL) LIPID PANEL (05/07/2007 5:35 AM SENIOR PROGRAM ANALYST) CHOLESTEROL 203(H) 100 - 199 mg/dL INTERFACE SYSTEM TRIGLYCERIDE 102 10 - 149 mg/dL INTERFACE SYSTEM HDL 41 40 - 59 mg/dL INTERFACE SYSTEM CHOL/HDL RATIO 5.0 2.0 - 5.0 INTER FACE SYSTEM LDL CALCULATED 142(H) <=99 mg/dL INTERFACE SYSTEM LIPID PANEL COMMENT See Below INTERFACE SYSTEM Comment: The adult ATP and pediatric NCEP classifications for lipids are available on the [facility] Intranet at: [email or web address] [email or web address] medical [email or web address] Select: Lab Policies and Procedures,Current Select: Lipid Panel Interpretation 05/07/2007 5:35 AM SENIOR PROGRAM ANALYST Octaviano Laughlin MD CHEMISTRY ORDERABLES Final Result Performing Organization Address [facility] Phone Number INTERFACE SYSTEM Refer to clinic/hospital department * (ABNORMAL) PROTEIN ELECTROPHORESIS, SERUM (05/06/2007 5:40 PM SENIOR PROGRAM ANALYST) PROTEIN TOTAL, SPE 7.2 6.0 - 8.3 [...] Koroma MD INTERFACE SYSTEM 05/06/2007 5:40 PM SENIOR PROGRAM ANALYST Octaviano Laughlin MD CHEMISTRY ORDERABLES Final Result Performing Organization Address [facility] de Phone Number INTERFACE SYSTEM Refer to clinic/hospital department * PROTEIN TOTAL (05/06/2007 5:40 PM SENIOR PROGRAM ANALYST) TOTAL PROTEIN 7.2 6.3 - 8.6 g/dL INTERFACE SYSTEM 05/06/2007 5:40 PM SENIOR PROGRAM ANALYST Octaviano Laughlin MD CHEMISTRY ORDERABLES Final Result Performing Organization Address [facility] Phone Number INTERFACE SYSTEM Refer to clinic/hospital department * HEMOGLOBIN A1C (05/06/2007 5:40 PM SENIOR PROGRAM ANALYST) HEMOGLOBIN A1C 6.1 4.1 - 6.1 % of Hgb INTERFACE SYSTEM GLUCOSE, MEAN BLOOD 140 mg/dL INTERFACE SYSTEM 05/06/2007 5:40 PM SENIOR PROGRAM ANALYST Octaviano Laughlin MD CHEMISTRY ORDERABLES Final Result Performing Organization Address [facility] Phone [facility] INTERFACE SYSTEM Refer to clinic/hospital department * (ABNORMAL) URINALYSIS WITH MICROSCOPIC (05/06/2007 3:15 PM SENIOR PROGRAM ANALYST) COLOR UA Pale Yellow INTERFAC E SYSTEM [...] 2-5 /HPF INTERFACE SYSTEM 05/06/2007 3:15 PM SENIOR PROGRAM ANALYST Jony Lawrence Jr., MD URINE ORDERABLES Final Res ult Performing Organization Address [facility] Phone Number INTERFACE SYSTEM Refer to clinic/hospital department * CT HEAD WO CONTRAST (05/06/2007 11:48 AM SENIOR PROGRAM ANALYST) Anatomical Region Laterality Modality Head Other 05/06/2007 11:4 8 AM SENIOR PROGRAM ANALYST Narrative 05/06/2007 5:12 PM SENIOR PROGRAM ANALYST [place] [id number] [place], [place] [address] Admit Date: 05/06/2007 [place] Sex: F Admit Prov: OCTAVIANO LAUGHLIN Date: 1950 Primary Care Prov: PCP , NONE CMRN: [id number] Room: [address] [place] [address] 2 SSN: [id number] IMAGING SERVICES Ordering Prov: N/A Accession Number: [id number] SCAN OF HEAD, NONCONTRAST, 05/06/2007 [...] DKT Procedure Note Provider, Historical - 05/06/2007 [place] [address] [place], [place] [address] Admit Date: 05/06/2007 [place] Sex: F Admit Prov: OCTAVIANO LAUGHLIN Date: 1950 Primary Care Prov: PCP , NONE CMRN: [id number] Room: [address] [place] [address] 2 SSN: [id number] IMAGING SERVICES Ordering Prov: N/A Interpretation CT [...] CHEST PA AND LATERAL (05/06/2007 11:45 AM SENIOR PROGRAM ANALYST) Anatomical Region Laterality Modality Chest Other 05/06/2007 11:4 5 AM SENIOR PROGRAM ANALYST Narrative 05/06/2007 12:37 PM SENIOR PROGRAM ANALYST [address] [address] Admit Date: 05/06/2007 [place] Sex: F Admit Prov: MANAV NORRIS Date: 1950 Primary Care Prov: CMRN: [id number] Room: [facility] SSN: [id number] IMAGING SERVICES Ordering Prov: N/A Accession Number: [id number] Interpretation PA and lateral chest x-ray. History: Chest pain. Findings: Findings: The lung lua are clear and well aerated without significant infiltrate. There is no pneumothorax or pleural effusion. The heart size is normal. Impression: No acute disease. . Dictated by: MEL THOMAS 05/06/2007 12:37 Electronically signed by: MEL THOMAS 05/06/2007 12:37 Procedure Note Mel Thomas - 05/06/2007 [place] [address] [place], [place] [address] Admit Date: 05/06/2007 [place], AUGUST A Sex: F Admit Prov: ER, AUTHORIZED P Date: 1950 Primary Care Prov: CMRN: [id number] Room: [facility] SSN: [id number] IMAGING SERVICES Ordering Prov: N/A Interpretation PA [...] * CBC WITH DIFFERENTIAL (05/06/2007 11:44 AM SENIOR PROGRAM ANALYST) NEUTROPHILS 67 45 - 70 % INTERFAC [...] K/uL INTERFACE SYSTEM 05/06/2007 11:4 4 AM SENIOR PROGRAM ANALYST Jony Lawrence Jr., MD HEMATOLOGY ORDERABLES Blanche l Result INTERFACE SYSTEM Refer to clinic/hospital department * (ABNORMAL) CBC WITH DIFFERENTIAL (05/06/2007 11:44 AM SENIOR PROGRAM ANALYST) WBC 9.0 4.0 - 9.8 K/uL INTERFACE [...] fL INTERFACE SYSTEM 05/06/2007 11:4 4 AM SENIOR PROGRAM ANALYST Jony Lawrence Jr., MD HEMATOLOGY ORDERABLES Blanche damir Result INTERFACE SYSTEM Refer to clinic/hospital department * (ABNORMAL) COMPREHENSIVE METABOLIC PANEL (05/06/2007 11:44 AM SENIOR PROGRAM ANALYST) GLUCOSE 104(H) 65 - 99 mg/dL INTERFACE [...] and non- Americans is available on the [facility] Intranet at: [email or web address] Select: Lab Policies and Procedures Select: Reference Ranges - GFR 05/06/2007 11:4 4 AM SENIOR PROGRAM ANALYST Jony Lawrence Jr., MD CHEMISTRY ORDERABLES Final Result Performing Organization Address City/[facility] de Phone Number INTERFACE SYSTEM Refer to clinic/hospital department * TROPONIN (W/REFLEX CKMB/CK) (05/06/2007 11:44 AM SENIOR PROGRAM ANALYST) TROPONIN T 0.01 <=0.03 ng/mL INTERFACE SYSTEM TROPONIN T INTERP Negative INTERFACE SYSTEM 05/06/2007 11:4 4 AM SENIOR PROGRAM ANALYST Jony Lawrence Jr., MD CHEMISTRY ORDERABLES Final Result Performing Organization Address City/[facility] Co de Phone Number INTERFACE SYSTEM Refer to clinic/hospital department documented in this encounter Visit Diagnoses Not on filedocumented in this encounter
--- OUTSIDE RECORDS SUMMARY | 2024-10-11 15:09 | XMS_ITS | Encounter Summary ---
Author Organization [facility] Address [address] [place] [address] Care Team Providers Care Second Shift Supervisor Name Role Phone Unavailable Primary Care Provider Unavailabl e Encounter Details Date Type Department Care Team (Late st Contact Info) Description 05/06/2007 Outpatient Historical [facility] Cardiology [address] [place] [address] Kuldip Sharif MD [address] [place] [address] Social History Tobacco Use Types Packs/Day Years Used Date Smoking Tobacco: Never Assessed Comments Unknown Sex and Gender Information Value Date Recorded Sex Assigned at Not on file Legal Sex Female 3:37 AM OCULAR CARE TECHNOLOGIST Gender Identity Not on file Sexual Orientation Not on file documented as of this encounter Plan of Treatment Not on file documented as of this encounter Visit Diagnoses Not on filedocumented in this encounter
--- OUTSIDE RECORDS SUMMARY | 2024-10-11 15:09 | XMS_ITS | Encounter Summary ---
Author Organization [facility] Address [address] [place] [address] Care Team Providers Care Academic Coach Name Role Phone Unavailable Primary Care Provider Unavailabl e Encounter Details Date Type Department Care Team (Late st Contact Info) Description 05/07/2007 Outpatient Historical [facility] Blood Flow [address] [place] [address] Sanket Bradley MD [facility] [address] [place] [address] Social History Tobacco Use Types Packs/Day Years Used Date Smoking Tobacco: Never Assessed Comments Unknown Sex and Gender Information Value Date Recorded Sex Assigned at Not on file Legal Sex Female 3:37 AM ANDROID IOS DEVELOPER Gender Identity Not on file Sexual Orientation Not on file documented as of this encounter Plan of Treatment Not on file documented as of this encounter Visit Diagnoses Not on filedocumented in this encounter
== END 2024-10-11 15:07 | disposition home or self-care (01) ==
LOC: CHSIMG 15:08
PROVIDERS: PCP Internal Medicine; Visit Provider Internal Medicine
DX: J32.0 Chronic maxillary sinusitis (principal)
CPT/HCPCS: 70220

== ENCOUNTER 2024-10-31 15:23 | Outpatient (RCR) | payer MEDICARE, SELFPAY ==
--- OUTSIDE RECORDS SUMMARY | 2024-08-13 16:42 | XMS_ITS | Encounter Summary ---
Author Organization [employer] Address [address] 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
--- OUTSIDE RECORDS SUMMARY | 2024-08-13 16:42 | XMS_ITS | Clinical Summary ---
Author Organization [employer] Address [address] 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
--- OUTSIDE RECORDS SUMMARY | 2024-08-13 16:42 | XMS_ITS | Encounter Summary ---
Author Organization [facility] Address [address] [place] [address] Care Team Providers Care Lock And Dam Operator Name Role Phone Unavailable Primary Care Provider Unavailabl e Encounter Details Date Type Department Care Team (Late st Contact Info) Description 05/07/2007 Outpatient Historical [facility] Supp Svcs Blood Flow [address] [place] [address] Sanket Bradley MD [facility] [address] [place] [address] Social History Tobacco Use Types Packs/Day Years Used Date Smoking Tobacco: Never Assessed Comments Unknown Sex and Gender Information Value Date Recorded Sex Assigned at Not on file 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
--- OUTSIDE RECORDS SUMMARY | 2024-08-13 16:42 | XMS_ITS | Encounter Summary ---
Author Organization [facility] Address [address] [place] [address] Care Team Providers Care Client Onboarding Analyst Name Role Phone Unavailable Primary Care Provider Unavailabl e Encounter Details Date Type Department Care Team (Late st Contact Info) Description 05/07/2007 Outpatient Historical [facility] Cardiology 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
--- OUTSIDE RECORDS SUMMARY | 2024-08-13 16:42 | XMS_ITS | Encounter Summary ---
Author Organization [facility] Address [address] [place] [address] Care Team Providers Care Wax Engraver Name Role Phone Unavailable Primary Care Provider Unavailabl e Encounter Details Date Type Department Care Team (Late st Contact Info) Description 05/06/2007 Outpatient Historical [facility] Cardiology 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
--- OUTSIDE RECORDS SUMMARY | 2024-08-13 16:42 | XMS_ITS | Encounter Summary ---
Author Organization [employer] Address [address] [place] [address] Care Team Providers Care Clinical Ob Name Role Phone Unavailable Primary Care Provider Unavailabl e Encounter Details Date Type Department Care Team (Late st Contact Info) Description 05/06/2007 Outpatient Historical [facility], Authorized P [place] [address] [place] [address] Social History Tobacco Use Types Packs/Day Years Used Date Smoking Tobacco: Never Assessed Comments Unknown Sex and Gender Information Value Date Recorded Sex Assigned at Not on file Legal Sex Female 3:37 AM MEN'S SWIM COACH Gender Identity Not on file Sexual Orientation Not on file documented as of this encounter Plan of Treatment Not on file documented as of this encounter Procedures Procedure Name Priority Date/Time Associated Diagnosis Comments ECHO COMPLETE Routine 05/08/2007 7:00 AM MEN'S SWIM COACH MRI BRAIN W WO CONTRAST Routine 05/07/19 08 8:42 PM MEN'S SWIM COACH NM PHARMACOLOGICAL STRESS TEST Routine 05/07/2007 5:30 PM MEN'S SWIM COACH NM MYOCARDIAL PERFUSION EF Routine 05/07/2007 8:30 AM MEN'S SWIM COACH GLUCOSE LEVEL Routine 05/07/2007 5:35 AM MEN'S SWIM COACH LIPID PANEL Routine 05/07/2007 5:35 AM MEN'S SWIM COACH PROTEIN ELECTROPHORESIS W/REFLEX,SERUM Routine 05/06/2007 5:40 PM MEN'S SWIM COACH PROTEIN TOTAL Routine 05/06/2007 5:40 PM MEN'S SWIM COACH HEMOGLOBIN A1C Routine 05/06/2007 5:40 PM MEN'S SWIM COACH URINALYSIS WITH MICROSCOPIC Routine 05/06/2007 3:15 PM MEN'S SWIM COACH CT HEAD WO CONTRAST Routine 05/06/2007 1 1:48 AM MEN'S SWIM COACH XR CHEST PA AND LATERAL 2 VW Routine 05/06/2007 11:45 AM MEN'S SWIM COACH TROPONIN (W/REFLEX CKMB/CK) Routine 05/06/2007 11:44 AM MEN'S SWIM COACH CBC WITH DIFFERENTIAL Routine 05/06/2007 11:44 AM MEN'S SWIM COACH CBC WITH DIFFERENTIAL Routine 05/06/2007 11:44 AM MEN'S SWIM COACH COMPREHENSIVE METABOLIC PANEL Routine 05/06/2007 11:44 AM MEN'S SWIM COACH documented in this encounter Results * ECHOCARDIOGRAM COMPLETE (05/08/2007 7:00 AM MEN'S SWIM COACH) Narrative INTERFACE SYSTEM - 05/08/2007 7:00 [place] [address] [email or web address] [email or web address] Echocardiogram Patient: August Vasquez Study ID: [...] 17:41:32 Procedure Note Provider, Historical - 05/08/2007 [facility] [address] [place], [place] [address]Xefns: [email or web address][email or web address] Transthoracic Echocardiogram Patient: August Pedro Study ID: [...] BRAIN W WO CONTRAST (05/07/2007 8:42 PM MEN'S SWIM COACH) Anatomical Region Laterality Modality Head Other 05/07/2007 8:42 PM MEN'S SWIM COACH Narrative 05/08/2007 11:26 AM MEN'S SWIM COACH [facility] [address] [place], [place] [address] Admit Date: 05/06/2007August A Sex: F Admit Prov: OCTAVIANO LAUGHLIN Date: 1950 Primary Care Prov: PCP , NONE CMRN: [id number] [facility] [address] [place] [address] IMAGING SERVICES Ordering Prov: N/A Accession Number: [id number] Interpretation MRI BRAIN WITH AND WITHOUT IV [...] etc. 2. Normal variant MRA with complete eklutna of Cárdenas. . Dictated by: ALDO AVILA 05/08/2007 07:42 Electronically signed by: ALDO AVILA 05/08/2007 11:26 Transcribed: 05/08/2007 11:23 MD Procedure Note Provider, Historical - 05/08/2007 [facility] [address], [place] [address] Admit Date: 05/06/2007, AUGUST A Sex: F Admit Prov: OCTAVIANO LAUGHLIN Date: 1950 Primary Care Prov: PCP , NONE CMRN: [id number] Room: [facility] SSN: [id number] IMAGING SERVICES Ordering Prov: N/A Interpretation MRI [...] etc. 2. Normal variant MRA with complete eklutna of Cárdenas. . Dictated by: ALDO AVILA 05/08/2007 07:42 Electronically signed by: ALDO AVILA 05/08/2007 11:26 Transcribed: 05/08/2007 11:23 Octaviano Laughlin MD MR ORDERABLES Final Resu lt * NM PHARMACOLOGICAL STRESS TEST (05/07/2007 5:30 PM MEN'S SWIM COACH) Narrative INTERFACE SYSTEM - 05/07/2007 5:30 PM MEN'S SWIM COACH [facility] [address] [place] [address] [email or web address][email or web address] Noninvasive Vascular Lab Carotid Duplex Study Patient: August Vasquez Study ID: BLOOD FLOW STUDY Gender: F : 1950 Age: 56 years Race: 1 Room: Bed: Height: Study Date: May 07, 2007 Patient status: Outpatient Weight: Access. #: [id number] POC: Multifocal Lens Assembler: Pawel Ordering: Octaviano Luque Attending MD: Octaviano [...] 17:29:09 Procedure Note Provider, Historical - 06/04/2007 [address] [address] [place], [place] [address]Rfjjp: [email or web address] Noninvasive Vascular Lab Carotid Duplex Study Patient: August Vasquez Study ID: BLOOD FLOW STUDY Gender: F : 1950 Age: 56 years Race: 1 Room: Bed: Height: Study Date: May 07, 2007 Patient status: Outpatient Weight: Access. #: [id number] POC: Multifocal Lens Assembler: Pawel Ordering: Octaviano Luque Attending MD: Octaviano [...] NM MYOCARDIAL PERFUSION EF (05/07/2007 8:30 AM MEN'S SWIM COACH) 05/07/2007 8:30 AM MEN'S SWIM COACH Narrative INTERFACE SYSTEM - 05/07/2007 10:42 AM MEN'S SWIM COACH Ordered by System System [facility] [address], [place] [address] Admit Date: 05/06/2007August Sex: F Admit Prov: OCTAVIANO LAUGHLIN Date: 1950 Primary Care Prov: PCP , NONE CMRN: [id number] Room: [address] [place] [address] SSN: [id number] IMAGING SERVICES Ordering Prov: N/A Accession Number: [id number] Interpretation Myocardial perfusion imaging, multiple SPECT with [...] Richardson - 05/07/2007 Ordered by System System [facility] [address] [place], [place] [address] Admit Date: 05/06/2007 VASQUEZAugust Sex: F Admit Prov: OCTAVIANO LAUGHLIN Date: 1950 Primary Care Prov: PCP , NONE CMRN: [id number] Room: [address] [place] [address] SSN: [id number] IMAGING SERVICES Ordering Prov: N/A Interpretation Myocardial [...] are available on the hospital PACS system Branding Brand. Impression: 1. Probably normal pharmacologic stress myocardial [...] NM ORDERABLES Final Result Performing Organization Address City/[facility] Co de Phone Number INTERFACE SYSTEM Refer to clinic/hospital department * (ABNORMAL) GLUCOSE LEVEL (05/07/2007 5:35 AM MEN'S SWIM COACH) GLUCOSE 105(H) 65 - 99 mg/dL INTERFACE SYSTEM 05/07/2007 5:35 AM MEN'S SWIM COACH Octaviano Laughlin MD CHEMISTRY ORDERABLES Final Result Performing Organization Address City/[facility]/ZIP Co de Phone Number INTERFACE SYSTEM Refer to clinic/hospital department * (ABNORMAL) LIPID PANEL (05/07/2007 5:35 AM MEN'S SWIM COACH) CHOLESTEROL 203(H) 100 - 199 mg/dL INTERFACE [...] are available on the [facility] at: [email or web address] Select: Lab Policies and Procedures,Current Select: Lipid Panel Interpretation 05/07/2007 5:35 AM MEN'S SWIM COACH Octaviano Laughlin MD CHEMISTRY ORDERABLES Final Result Performing Organization Address [facility] Phone Number INTERFACE SYSTEM Refer to clinic/hospital department * (ABNORMAL) PROTEIN ELECTROPHORESIS, SERUM (05/06/2007 5:40 PM MEN'S SWIM COACH) PROTEIN TOTAL, SPE 7.2 6.0 - 8.3 [...] Koroma MD INTERFACE SYSTEM 05/06/2007 5:40 PM MEN'S SWIM COACH Octaviano Laughlin MD CHEMISTRY ORDERABLES Final Result Performing Organization Address [facility] de Phone Number INTERFACE SYSTEM Refer to clinic/hospital department * PROTEIN TOTAL (05/06/2007 5:40 PM MEN'S SWIM COACH) TOTAL PROTEIN 7.2 6.3 - 8.6 g/dL INTERFACE SYSTEM 05/06/2007 5:40 PM MEN'S SWIM COACH Octaviano Laughlin MD CHEMISTRY ORDERABLES Final Result Performing Organization Address [facility] Phone Number INTERFACE SYSTEM Refer to clinic/hospital department * HEMOGLOBIN A1C (05/06/2007 5:40 PM MEN'S SWIM COACH) HEMOGLOBIN A1C 6.1 4.1 - 6.1 % of Hgb INTERFACE SYSTEM GLUCOSE, MEAN BLOOD 140 mg/dL INTERFACE SYSTEM 05/06/2007 5:40 PM MEN'S SWIM COACH Octaviano Laughlin MD CHEMISTRY ORDERABLES Final Result Performing Organization Address [facility] Phone [facility] INTERFACE SYSTEM Refer to clinic/hospital department * (ABNORMAL) URINALYSIS WITH MICROSCOPIC (05/06/2007 3:15 PM MEN'S SWIM COACH) COLOR UA Pale Yellow INTERFAC E SYSTEM [...] 2-5 /HPF INTERFACE SYSTEM 05/06/2007 3:15 PM MEN'S SWIM COACH Jony Lawrence Jr., MD URINE ORDERABLES Final Res ult Performing Organization Address [facility] Phone Number INTERFACE SYSTEM Refer to clinic/hospital department * CT HEAD WO CONTRAST (05/06/2007 11:48 AM MEN'S SWIM COACH) Anatomical Region Laterality Modality Head Other 05/06/2007 11:4 8 AM MEN'S SWIM COACH Narrative 05/06/2007 5:12 PM MEN'S SWIM COACH [place] [address] [place], [place] [address] Admit Date: 05/06/2007 [place]August Sex: F Admit Prov: OCTAVIANO LAUGHLIN Date: 1950 Primary Care Prov: PCP , NONE CMRN: [id number] Room: [address] [place] [address] 2 SSN: [id number] IMAGING SERVICES Ordering Prov: N/A Accession Number: [id number] Interpretation CT SCAN OF HEAD, NONCONTRAST, 05/06/2007 [...] DKT Procedure Note Provider, Historical - 05/06/2007 [place] [address] [place], [place] [address] Admit Date: 05/06/2007 [place]August Sex: F Admit Prov: OCTAVIANO LAUGHLIN Date: 1950 Primary Care Prov: PCP , NONE CMRN: [id number] Room: [address] [place] [address] 2 SSN: [id number] IMAGING SERVICES Ordering Prov: N/A Interpretation CT [...] CHEST PA AND LATERAL (05/06/2007 11:45 AM MEN'S SWIM COACH) Anatomical Region Laterality Modality Chest Other 05/06/2007 11:4 5 AM MEN'S SWIM COACH Narrative 05/06/2007 12:37 PM MEN'S SWIM COACH [address] [address] Admit Date: 05/06/2007 [place]August A Sex: F Admit Prov: MANAV NORRIS Date: 1950 Primary Care Prov: CMRN: [id number] Room: [facility] SSN: [id number] IMAGING SERVICES Ordering Prov: N/A Accession Number: [id number] Interpretation PA and lateral chest x-ray. History: Chest pain. Findings: Findings: The lung lua are clear and well aerated without significant infiltrate. There is no pneumothorax or pleural effusion. The heart size is normal. Impression: No acute disease. . Dictated by: MEL THOMAS 05/06/2007 12:37 Electronically signed by: MEL THOMAS 05/06/2007 12:37 Procedure Note Mel Thomas - 05/06/2007 [address] [place], [place] [address] Admit Date: 05/06/2007 [place], AUGUST A Sex: F Admit Prov: ER, AUTHORIZED P Date: 1950 Primary Care Prov: CMRN: [id number] Room: [facility] SSN: [id number] IMAGING SERVICES Ordering Prov: N/A Interpretation PA [...] * CBC WITH DIFFERENTIAL (05/06/2007 11:44 AM MEN'S SWIM COACH) NEUTROPHILS 67 45 - 70 % INTERFAC [...] K/uL INTERFACE SYSTEM 05/06/2007 11:4 4 AM MEN'S SWIM COACH Jony Lawrence Jr., MD HEMATOLOGY ORDERABLES Blanche l Result INTERFACE SYSTEM Refer to clinic/hospital department * (ABNORMAL) CBC WITH DIFFERENTIAL (05/06/2007 11:44 AM MEN'S SWIM COACH) WBC 9.0 4.0 - 9.8 K/uL INTERFACE [...] fL INTERFACE SYSTEM 05/06/2007 11:4 4 AM MEN'S SWIM COACH Jony Lawrence Jr., MD HEMATOLOGY ORDERABLES Blanche damir Result INTERFACE SYSTEM Refer to clinic/hospital department * (ABNORMAL) COMPREHENSIVE METABOLIC PANEL (05/06/2007 11:44 AM MEN'S SWIM COACH) GLUCOSE 104(H) 65 - 99 mg/dL INTERFACE [...] is available on the [facility] at: [email or web address] Select: Lab Policies and Procedures Select: Reference Ranges - GFR 05/06/2007 11:4 4 AM MEN'S SWIM COACH Jony Lawrence Jr., MD CHEMISTRY ORDERABLES Final Result Performing Organization Address City/[facility] de Phone Number INTERFACE SYSTEM Refer to clinic/hospital department * TROPONIN (W/REFLEX CKMB/CK) (05/06/2007 11:44 AM MEN'S SWIM COACH) TROPONIN T 0.01 <=0.03 ng/mL INTERFACE SYSTEM TROPONIN T INTERP Negative INTERFACE SYSTEM 05/06/2007 11:4 4 AM MEN'S SWIM COACH Jony Lawrence Jr., MD CHEMISTRY ORDERABLES Final Result Performing Organization Address City/[facility] Co de Phone Number INTERFACE SYSTEM Refer to clinic/hospital department documented in this encounter Visit Diagnoses Not on filedocumented in this encounter
[2024-08-13 18:02] LABS: INR 1.9; Prothrombin Time 19.3 Seconds (9.50-12.1)
[2024-08-26 15:08] LABS: INR 2.2; Prothrombin Time 22.9 Seconds (9.50-12.1)
[2024-09-19 16:45] LABS: INR 2.8; Prothrombin Time 28.0 Seconds (9.50-12.1)
[2024-10-31 17:00] LABS: INR 4.1; Prothrombin Time 39.2 Seconds (9.50-12.1)
== END 2024-11-11 23:59 | disposition home or self-care (01) ==
LOC: CHSLAB 15:23
PROVIDERS: PCP Internal Medicine; Visit Provider Internal Medicine Cardiovascular Disease
DX: I48.0 Paroxysmal atrial fibrillation (principal)
CPT/HCPCS: 36415; 85610

== ENCOUNTER 2024-11-12 15:30 | Outpatient (RCR) | payer MEDICARE, SELFPAY ==
--- OUTSIDE RECORDS SUMMARY | 2024-11-12 15:35 | XMS_ITS | Encounter Summary ---
Author Organization [facility] Address [address] [place] [address] Care Team Providers Care Display Director Name Role Phone Unavailable Primary Care Provider Unavailabl e Encounter Details Date Type Department Care Team (Late st Contact Info) Description 05/06/2007 Outpatient Historical [facility] Cardiology [address] [place] [address] Kuldip Sharif MD [address] [place] [address] Social History Tobacco Use Types Packs/Day Years Used Date Smoking Tobacco: Never Assessed Comments Unknown Sex and Gender Information Value Date Recorded Sex Assigned at Not on file Legal Sex Female 3:37 AM STATUS CONTROLLER Gender Identity Not on file Sexual Orientation Not on file documented as of this encounter Plan of Treatment Not on file documented as of this encounter Visit Diagnoses Not on filedocumented in this encounter
--- OUTSIDE RECORDS SUMMARY | 2024-11-12 15:35 | XMS_ITS | Encounter Summary ---
Author Organization [facility] [employer] Address [address] [place] [address] Care Team Providers Care Heeler Name Role Phone Unavailable Primary Care Provider Unavailabl e Encounter Details Date Type Department Care Team (Late st Contact Info) Description 05/06/2007 Outpatient Historical [facility] Er, Authorized P [place] [address] [address] [place] [address] Social History Tobacco Use Types Packs/Day Years Used Date Smoking Tobacco: Never Assessed Comments Unknown Sex and Gender Information Value Date Recorded Sex Assigned at Not on file Legal Sex Female 3:37 AM COLLECTIONS SPECIALIST Gender Identity Not on file Sexual Orientation Not on file documented as of this encounter Plan of Treatment Not on file documented as of this encounter Procedures Procedure Name Priority Date/Time Associated Diagnosis Comments ECHO COMPLETE Routine 05/08/2007 7:00 AM COLLECTIONS SPECIALIST MRI BRAIN W WO CONTRAST Routine 05/07/19 08 8:42 PM COLLECTIONS SPECIALIST NM PHARMACOLOGICAL STRESS TEST Routine 05/07/2007 5:30 PM COLLECTIONS SPECIALIST NM MYOCARDIAL PERFUSION EF Routine 05/07/2007 8:30 AM COLLECTIONS SPECIALIST GLUCOSE LEVEL Routine 05/07/2007 5:35 AM COLLECTIONS SPECIALIST LIPID PANEL Routine 05/07/2007 5:35 AM COLLECTIONS SPECIALIST PROTEIN ELECTROPHORESIS W/REFLEX,SERUM Routine 05/06/2007 5:40 PM COLLECTIONS SPECIALIST PROTEIN TOTAL Routine 05/06/2007 5:40 PM COLLECTIONS SPECIALIST HEMOGLOBIN A1C Routine 05/06/2007 5:40 PM COLLECTIONS SPECIALIST URINALYSIS WITH MICROSCOPIC Routine 05/06/2007 3:[address] HEAD WO CONTRAST Routine 05/06/2007 1 1:48 AM COLLECTIONS SPECIALIST XR CHEST PA AND LATERAL 2 VW Routine 05/06/2007 11:45 AM COLLECTIONS SPECIALIST TROPONIN (W/REFLEX CKMB/CK) Routine 05/06/2007 11:44 AM COLLECTIONS SPECIALIST CBC WITH DIFFERENTIAL Routine 05/06/2007 11:44 AM COLLECTIONS SPECIALIST CBC WITH DIFFERENTIAL Routine 05/06/2007 11:44 AM COLLECTIONS SPECIALIST COMPREHENSIVE METABOLIC PANEL Routine 05/06/2007 11:44 AM COLLECTIONS SPECIALIST documented in this encounter Results * ECHOCARDIOGRAM COMPLETE (05/08/2007 7:00 AM COLLECTIONS SPECIALIST) Narrative INTERFACE SYSTEM - 05/08/2007 7:00 [place] [address] [email or web address] Transthoracic Echocardiogram Patient: August Vasquez Study ID: [...] 17:41:32 Procedure Note Provider, Historical - 05/08/2007 [facility] [address] [place], [place] [address]Whgql: [email or web address] Transthoracic Echocardiogram Patient: August Pedro Study ID: [...] BRAIN W WO CONTRAST (05/07/2007 8:42 PM COLLECTIONS SPECIALIST) Anatomical Region Laterality Modality Head Other 05/07/2007 8:42 PM COLLECTIONS SPECIALIST Narrative 05/08/2007 11:26 AM COLLECTIONS SPECIALIST [facility] [address] [place], [place] [address] Admit Date: 05/06/2007August A Sex: F Admit Prov: OCTAVIANO LAUGHLIN Date: 1950 Primary Care Prov: PCP , NONE CMRN: [id number] [facility] [address] [place] [address] IMAGING SERVICES Ordering Prov: N/A Accession Number: [id number] Interpretation MRI BRAIN WITH AND WITHOUT IV [...] etc. 2. Normal variant MRA with complete inaja of [place]ár[place]. . Dictated by: ALDO AVILA 05/08/2007 07:42 Electronically signed by: ALDO AVILA 05/08/2007 11:26 Transcribed: 05/08/2007 11:23 MD Procedure Note Provider, Historical - 05/08/2007 [facility] [address] [place], [place] [address] Admit Date: 05/06/2007, AUGUST A Sex: F Admit Prov: OCTAVIANO LAUGHLIN Date: 1950 Primary Care Prov: PCP , NONE CMRN: [id number] Room: [facility] SSN: [id number] IMAGING SERVICES Ordering Prov: N/A Interpretation MRI [...] etc. 2. Normal variant MRA with complete inaja of [place]. . Dictated by: ALDO AVILA 05/08/2007 07:42 Electronically signed by: ALDO AVILA 05/08/2007 11:26 Transcribed: 05/08/2007 11:23 Octaviano Laughlin MD MR ORDERABLES Final Resu lt * NM PHARMACOLOGICAL STRESS TEST (05/07/2007 5:30 PM COLLECTIONS SPECIALIST) Narrative INTERFACE SYSTEM - 05/07/2007 5:30 PM COLLECTIONS SPECIALIST [facility] [address] [place] [address] [email or web address] Noninvasive Vascular Lab Carotid Duplex Study Patient: August Vasquez Study ID: BLOOD FLOW STUDY Gender: F : 1950 Age: 56 years Race: 1 Room: Bed: Height: Study Date: May 07, 2007 Patient status: Outpatient Weight: Access. #: [id number] POC: Fur Repairer: Pawel Ordering: Octaviano Luque Attending MD: [...] 17:29:09 Procedure Note Provider, Historical - 06/04/2007 [place] [address] [place], [place] [address]Nobwu: [email or web address] Noninvasive Vascular Lab Carotid Duplex Study Patient: August Vasquez Study ID: BLOOD FLOW STUDY Gender: F : 1950 Age: 56 years Race: 1 Room: Bed: Height: Study Date: May 07, 2007 Patient status: Outpatient Weight: Access. #: [id number] POC: Fur Repairer: Pawel Ordering: Octaviano Luque Attending MD: [...] NM MYOCARDIAL PERFUSION EF (05/07/2007 8:30 AM COLLECTIONS SPECIALIST) 05/07/2007 8:30 AM COLLECTIONS SPECIALIST Narrative INTERFACE SYSTEM - 05/07/2007 10:42 AM COLLECTIONS SPECIALIST Ordered by System System [facility] [address] [place], [place] [address] Admit Date: 05/06/2007August Sex: F Admit Prov: OCTAVIANO LAUGHLIN Date: 1950 Primary Care Prov: PCP , NONE CMRN: [id number] Room: [address] [place] [address] SSN: [id number] IMAGING SERVICES Ordering Prov: N/A Accession Number: [id number] Interpretation Myocardial perfusion imaging, multiple SPECT with [...] - [place] [address] [place], [place] [address] Admit Date: 05/06/2007 VASQUEZAugust Sex: F Admit Prov: OCTAVIANO LAUGHLIN Date: 1950 Primary Care Prov: PCP , NONE CMRN: [id number] Room: [address] [place] [address] SSN: [id number] IMAGING SERVICES Ordering Prov: N/A Interpretation Myocardial [...] are available on the hospital PACS system [employer]. Impression: 1. Probably normal pharmacologic stress myocardial [...] NM ORDERABLES Final Result Performing Organization Address City/[facility] Co de Phone Number INTERFACE SYSTEM Refer to clinic/hospital department * (ABNORMAL) GLUCOSE LEVEL (05/07/2007 5:35 AM COLLECTIONS SPECIALIST) GLUCOSE 105(H) 65 - 99 mg/dL INTERFACE SYSTEM 05/07/2007 5:35 AM COLLECTIONS SPECIALIST Octaviano Laughlin MD CHEMISTRY ORDERABLES Final Result Performing Organization Address City/[facility]/ZIP Co de Phone Number INTERFACE SYSTEM Refer to clinic/hospital department * (ABNORMAL) LIPID PANEL (05/07/2007 5:35 AM COLLECTIONS SPECIALIST) CHOLESTEROL 203(H) 100 - 199 mg/dL INTERFACE SYSTEM TRIGLYCERIDE 102 10 - 149 mg/dL INTERFACE SYSTEM HDL 41 40 - 59 mg/dL INTERFACE SYSTEM CHOL/HDL RATIO 5.0 2.0 - 5.0 INTER FACE SYSTEM LDL CALCULATED 142(H) <=99 mg/dL INTERFACE SYSTEM LIPID PANEL COMMENT See Below INTERFACE SYSTEM Comment: The adult ATP and pediatric NCEP classifications for lipids are available on the [facility] Intranet at: [email or web address] medical [email or web address] Select: Lab Policies and Procedures,Current Select: Lipid Panel Interpretation 05/07/2007 5:35 AM COLLECTIONS SPECIALIST Octaviano Laughlin MD CHEMISTRY ORDERABLES Final Result Performing Organization Address [facility] Phone Number INTERFACE SYSTEM Refer to clinic/hospital department * (ABNORMAL) PROTEIN ELECTROPHORESIS, SERUM (05/06/2007 5:40 PM COLLECTIONS SPECIALIST) PROTEIN TOTAL, SPE 7.2 6.0 - 8.3 [...] Koroma MD INTERFACE SYSTEM 05/06/2007 5:40 PM COLLECTIONS SPECIALIST Octaviano Laughlin MD CHEMISTRY ORDERABLES Final Result Performing Organization Address [facility] Phone Number INTERFACE SYSTEM Refer to clinic/hospital department * PROTEIN TOTAL (05/06/2007 5:40 PM COLLECTIONS SPECIALIST) TOTAL PROTEIN 7.2 6.3 - 8.6 g/dL INTERFACE SYSTEM 05/06/2007 5:40 PM COLLECTIONS SPECIALIST Octaviano Laughlin MD CHEMISTRY ORDERABLES Final Result Performing Organization Address [facility] Phone Number INTERFACE SYSTEM Refer to clinic/hospital department * HEMOGLOBIN A1C (05/06/2007 5:40 PM COLLECTIONS SPECIALIST) HEMOGLOBIN A1C 6.1 4.1 - 6.1 % of Hgb INTERFACE SYSTEM GLUCOSE, MEAN BLOOD 140 mg/dL INTERFACE SYSTEM 05/06/2007 5:40 PM COLLECTIONS SPECIALIST Octaviano Laughlin MD CHEMISTRY ORDERABLES Final Result Performing Organization Address [facility] Phone [facility] INTERFACE SYSTEM Refer to clinic/hospital department * (ABNORMAL) URINALYSIS WITH MICROSCOPIC (05/06/2007 3:15 PM COLLECTIONS SPECIALIST) COLOR UA Pale Yellow INTERFAC E SYSTEM [...] 2-5 /HPF INTERFACE SYSTEM 05/06/2007 3:15 PM COLLECTIONS SPECIALIST Jony Lawrence Jr., MD URINE ORDERABLES Final Res ult Performing Organization Address [facility] Phone Number INTERFACE SYSTEM Refer to clinic/hospital department * CT HEAD WO CONTRAST (05/06/2007 11:48 AM COLLECTIONS SPECIALIST) Anatomical Region Laterality Modality Head Other 05/06/2007 11:4 8 AM COLLECTIONS SPECIALIST Narrative 05/06/2007 5:12 PM COLLECTIONS SPECIALIST [place] [address] [place], [place] [address] Admit Date: 05/06/2007 [place] Sex: F Admit Prov: OCTAVIANO LAUGHLIN Date: 1950 Primary Care Prov: PCP , NONE CMRN: [id number] Room: [address] [place] [address] 2 SSN: [id number] IMAGING SERVICES Ordering Prov: N/A Accession Number: [id number] Interpretation CT SCAN OF HEAD, NONCONTRAST, 05/06/2007 [...] DKT Procedure Note Provider, Historical - 05/06/2007 [place] [address] [place], [place] [address] Admit Date: 05/06/2007 [place] Sex: F Admit Prov: OCTAVIANO LAUGHLIN Date: 1950 Primary Care Prov: PCP , NONE CMRN: [id number] Room: [address] [place] [address] 2 SSN: [id number] IMAGING SERVICES Ordering Prov: N/A Interpretation CT [...] CHEST PA AND LATERAL (05/06/2007 11:45 AM COLLECTIONS SPECIALIST) Anatomical Region Laterality Modality Chest Other 05/06/2007 11:4 5 AM COLLECTIONS SPECIALIST Narrative 05/06/2007 12:37 PM COLLECTIONS SPECIALIST [address] [address] Admit Date: 05/06/2007 [place]OCK[place] A Sex: F Admit Prov: MANAV NORRIS Date: 1950 Primary Care Prov: CMRN: [id number] Room: [facility] SSN: [id number] IMAGING SERVICES Ordering Prov: N/A Accession Number: [id number] Interpretation PA and lateral chest x-ray. History: Chest pain. Findings: Findings: The lung lua are clear and well aerated without significant infiltrate. There is no pneumothorax or pleural effusion. The heart size is normal. Impression: No acute disease. . Dictated by: MEL THOMAS 05/06/2007 12:37 Electronically signed by: MEL THOMAS 05/06/2007 12:37 Procedure Note Mel Thomas - 05/06/2007 [place] [address] [place], [place] [address] Admit Date: 05/06/2007 CROCKETT, AUGUST A Sex: F Admit Prov: ER, AUTHORIZED P Date: 1950 Primary Care Prov: CMRN: [id number] Room: [facility] SSN: [id number] IMAGING SERVICES Ordering Prov: N/A Interpretation PA [...] * CBC WITH DIFFERENTIAL (05/06/2007 11:44 AM COLLECTIONS SPECIALIST) NEUTROPHILS 67 45 - 70 % INTERFAC [...] K/uL INTERFACE SYSTEM 05/06/2007 11:4 4 AM COLLECTIONS SPECIALIST Jony Lawrence Jr., MD HEMATOLOGY ORDERABLES Blanche l Result INTERFACE SYSTEM Refer to clinic/hospital department * (ABNORMAL) CBC WITH DIFFERENTIAL (05/06/2007 11:44 AM COLLECTIONS SPECIALIST) WBC 9.0 4.0 - 9.8 K/uL INTERFACE [...] fL INTERFACE SYSTEM 05/06/2007 11:4 4 AM COLLECTIONS SPECIALIST Jony Lawrenec Jr., MD HEMATOLOGY ORDERABLES Blanche damir Result INTERFACE SYSTEM Refer to clinic/hospital department * (ABNORMAL) COMPREHENSIVE METABOLIC PANEL (05/06/2007 11:44 AM COLLECTIONS SPECIALIST) GLUCOSE 104(H) 65 - 99 mg/dL INTERFACE [...] and non- Americans is available on the [facility] Intranet at: [email or web address] Select: Lab Policies and Procedures Select: Reference Ranges - GFR 05/06/2007 11:4 4 AM COLLECTIONS SPECIALIST Jony Lawrence Jr., MD CHEMISTRY ORDERABLES Final Result Performing Organization Address City/[facility] de Phone Number INTERFACE SYSTEM Refer to clinic/hospital department * TROPONIN (W/REFLEX CKMB/CK) (05/06/2007 11:44 AM COLLECTIONS SPECIALIST) TROPONIN T 0.01 <=0.03 ng/mL INTERFACE SYSTEM TROPONIN T INTERP Negative INTERFACE SYSTEM 05/06/2007 11:4 4 AM COLLECTIONS SPECIALIST Jony Lawrence Jr., MD CHEMISTRY ORDERABLES Final Result Performing Organization Address City/[facility] Co de Phone Number INTERFACE SYSTEM Refer to clinic/hospital department documented in this encounter Visit Diagnoses Not on filedocumented in this encounter
--- OUTSIDE RECORDS SUMMARY | 2024-11-12 15:35 | XMS_ITS | Clinical Summary ---
Author Organization [email or web address] Address [address] 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
--- OUTSIDE RECORDS SUMMARY | 2024-11-12 15:35 | XMS_ITS | Encounter Summary ---
Author Organization [facility] Address [address] [place] [address] Care Team Providers Care Paid Search Specialist Name Role Phone Unavailable Primary Care Provider Unavailabl e Encounter Details Date Type Department Care Team (Late st Contact Info) Description 05/07/2007 Outpatient Historical [facility] Blood Flow [address] [place] [address] Sanket Bradley MD [facility] [address] [place] [address] Social History Tobacco Use Types Packs/Day Years Used Date Smoking Tobacco: Never Assessed Comments Unknown Sex and Gender Information Value Date Recorded Sex Assigned at Not on file Legal Sex Female 3:37 AM CUPOLA LINER Gender Identity Not on file Sexual Orientation Not on file documented as of this encounter Plan of Treatment Not on file documented as of this encounter Visit Diagnoses Not on filedocumented in this encounter
--- OUTSIDE RECORDS SUMMARY | 2024-11-12 15:35 | XMS_ITS | Encounter Summary ---
Author Organization [facility] Address [address] [place]n: Epic Prelude ADT MARCELO GALLAGHER [address] Care Team Providers Care Hotel Reservationist Name Role Phone Unavailable Primary Care Provider Unavailabl e Encounter Details Date Type Department Care Team (Late st Contact Info) Description 09/11/1988 Outpatient Historical [facility] [address] [place] [address] Social History Tobacco Use Types Packs/Day Years Used Date Smoking Tobacco: Never Assessed Comments Unknown Sex and Gender Information Value Date Recorded Sex Assigned at Not on file Legal Sex Female 3:37 AM DIRECTOR OF RECRUITMENT AND ADMISSIONS Gender Identity Not on file Sexual Orientation Not on file documented as of this encounter Plan of Treatment Not on file documented as of this encounter Visit Diagnoses Not on filedocumented in this encounter
--- OUTSIDE RECORDS SUMMARY | 2024-11-12 15:35 | XMS_ITS | Encounter Summary ---
Author Organization [facility] Address [address] [place] [address] Care Team Providers Care Manager Business Development Hospice Name Role Phone Unavailable Primary Care Provider Unavailabl e Encounter Details Date Type Department Care Team (Late st Contact Info) Description 05/07/2007 Outpatient Historical [facility] Cardiology [address] [place] [address] Jony Guzman MD NO ADDRESS ON FILE Social History Tobacco Use Types Packs/Day Years Used Date Smoking Tobacco: Never Assessed Comments Unknown Sex and Gender Information Value Date Recorded Sex Assigned at Not on file Legal Sex Female 3:37 AM INFORMATION SYSTEMS MANAGER Gender Identity Not on file Sexual Orientation Not on file documented as of this encounter Plan of Treatment Not on file documented as of this encounter Visit Diagnoses Not on filedocumented in this encounter
[2024-11-12 16:00] LABS: INR 1.6; Prothrombin Time 17.2 Seconds (9.50-12.1)
== END 2025-02-10 23:59 | disposition home or self-care (01) ==
LOC: CHSLAB 15:30
PROVIDERS: PCP Internal Medicine; Visit Provider Internal Medicine Cardiovascular Disease
DX: I48.0 Paroxysmal atrial fibrillation (principal)
CPT/HCPCS: 36415; 85610

== ENCOUNTER 2024-12-24 17:19 | Outpatient (CLI) | payer MEDICARE, SELFPAY ==
--- OUTSIDE RECORDS SUMMARY | 2024-12-24 17:24 | XMS_ITS | Encounter Summary ---
Author Organization [facility] Address [address] [place] [address] Care Team Providers Care Epic Manager Name Role Phone Unavailable Primary Care Provider Unavailabl e Encounter Details Date Type Department Care Team (Late st Contact Info) Description 05/07/2007 Outpatient Historical [facility] Supp Svcs Blood Flow [address] [place] [address] Sanket Bradley MD [facility] [address] [place] [address] Social History Tobacco Use Types Packs/Day Years Used Date Smoking Tobacco: Never Assessed Comments Unknown Sex and Gender Information Value Date Recorded Sex Assigned at Not on file Legal Sex Female 3:37 AM FLOWER PICKER Gender Identity Not on file Sexual Orientation Not on file documented as of this encounter Plan of Treatment Not on file documented as of this encounter Visit Diagnoses Not on filedocumented in this encounter
--- OUTSIDE RECORDS SUMMARY | 2024-12-24 17:24 | XMS_ITS | Encounter Summary ---
Author Organization [facility] Address [address] [place] [address] Care Team Providers Care Tire Trucker Name Role Phone Unavailable Primary Care Provider Unavailabl e Encounter Details Date Type Department Care Team (Late st Contact Info) Description 05/07/2007 Outpatient Historical [facility] Cardiology [address] [place] [address] Jony Guzman MD NO ADDRESS ON FILE Social History Tobacco Use Types Packs/Day Years Used Date Smoking Tobacco: Never Assessed Comments Unknown Sex and Gender Information Value Date Recorded Sex Assigned at Not on file Legal Sex Female 3:37 AM PHARMACY TECHNICIAN INPATIENT Gender Identity Not on file Sexual Orientation Not on file documented as of this encounter Plan of Treatment Not on file documented as of this encounter Visit Diagnoses Not on filedocumented in this encounter
--- OUTSIDE RECORDS SUMMARY | 2024-12-24 17:24 | XMS_ITS | Encounter Summary ---
Author Organization [facility] Address [address] [place] [address] Care Team Providers Care Physician Coding Specialist Name Role Phone Unavailable Primary Care Provider Unavailabl e Encounter Details Date Type Department Care Team (Late st Contact Info) Description 05/06/2007 Outpatient Historical [facility] Cardiology 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
--- OUTSIDE RECORDS SUMMARY | 2024-12-24 17:24 | XMS_ITS | Encounter Summary ---
Author Organization [employer] Address [address] [place]: Epic Prelude ADT MARCELO GALLAGHER [address] Care Team Providers Care Sow Farm Barn Technician Name Role Phone Unavailable Primary Care Provider Unavailabl e Encounter Details Date Type Department Care Team (Late st Contact Info) Description 09/11/1988 Outpatient Historical [facility] [address] [place] [address] Social History Tobacco Use Types Packs/Day Years Used Date Smoking Tobacco: Never Assessed Comments Unknown Sex and Gender Information Value Date Recorded Sex Assigned at Not on file Legal Sex Female 3:37 AM VEGETABLE SCULLION Gender Identity Not on file Sexual Orientation Not on file documented as of this encounter Plan of Treatment Not on file documented as of this encounter Visit Diagnoses Not on filedocumented in this encounter
--- OUTSIDE RECORDS SUMMARY | 2024-12-24 17:24 | XMS_ITS | Clinical Summary ---
Author Organization [employer] Address [address] [place]: Epic Prelude ADT ISABEL COLLINSMARCELO [address] Care Team Providers Care Squaring Machine Operator Name Role Phone Unavailable Primary Care Provider Unavailabl e Social History Tobacco Use Types Packs/Day Years Used Date Smoking Tobacco: Never Assessed Comments Unknown Sex and Gender Information Value Date Recorded Sex Assigned at Not on file Legal Sex Female 3:37 AM SPA TECHNICIAN Gender Identity Not on file Sexual Orientation [...]
[2024-12-24 19:10] LABS: INR 2.8; Prothrombin Time 28.4 Seconds (9.50-12.1)
== END 2024-12-24 17:20 | disposition home or self-care (01) ==
LOC: CHSLAB 17:22
PROVIDERS: PCP Internal Medicine; Visit Provider Internal Medicine Cardiovascular Disease
DX: I48.0 Paroxysmal atrial fibrillation (principal)
CPT/HCPCS: 36415; 85610

== ENCOUNTER 2025-02-02 16:57 | Outpatient (RCR) | payer MEDICARE, SELFPAY ==
[2024-11-25 19:01] LABS: INR 1.6; Prothrombin Time 17.3 Seconds (9.50-12.1)
[2024-12-08 16:58] LABS: INR 2.2; Prothrombin Time 23.0 Seconds (9.50-12.1)
[2025-01-13 18:23] LABS: INR 2.1; Prothrombin Time 21.9 Seconds (9.50-12.1)
[2025-02-02 17:21] LABS: INR 3.0; Prothrombin Time 29.4 Seconds (9.50-12.1)
== END 2025-02-23 23:59 | disposition home or self-care (01) ==
LOC: CHSLAB 16:57
PROVIDERS: PCP Internal Medicine; Visit Provider Internal Medicine Cardiovascular Disease
DX: I48.0 Paroxysmal atrial fibrillation (principal)
CPT/HCPCS: 36415; 85610